=== PATIENT | female | born 1940 | race Caucasian/White ===

== ENCOUNTER 2022-05-27 21:21 | Inpatient (IN) | payer MEDICARE, BC ==
[~2022-05-27] VITALS: Ht 157.5 cm; Wt 105.2 kg
[2022-05-27 21:49] LABS: HEMOGLOBIN 14.9 g/dL (11.5-16.0)
[2022-05-27 21:51] LABS: BASOPHILS # (AUTO) 0.1 10^3/uL (0.0-0.1); BASOPHILS % (AUTO) 1 % (0-10); EOSINOPHILS # (AUTO) 0.4 10^3/uL (0.0-0.3); EOSINOPHILS % (AUTO) 3 % (0-10); HEMATOCRIT 47 % (35-52); LYMPHOCYTES # (AUTO) 0.8 10^3/uL (1.0-4.0); LYMPHOCYTES % (AUTO) 7 % (12-44); MEAN CORPUSCULAR HEMOGLOBIN 30 pg (25-34); MEAN CORPUSCULAR HGB CONC 32 g/dL (32-36); MEAN CORPUSCULAR VOLUME 93 fL (80-99); MEAN PLATELET VOLUME 9.5 fL (9.0-12.2); MONOCYTES # (AUTO) 0.8 10^3/uL (0.0-1.0); MONOCYTES % (AUTO) 7 % (0-12); NEUTROPHILS # (AUTO) 9.2 10^3/uL (1.8-7.8); NEUTROPHILS % (AUTO) 82 % (42-75); PLATELET COUNT 105 10^3/uL (130-400); WHITE BLOOD COUNT 11.2 10^3/uL (4.3-11.0)
[2022-05-27] MEDS ORDERED: WARF4TAB3 PO (21:55)
[2022-05-27] MEDS ORDERED: FERR236T3 PO (21:55)
[2022-05-27] MEDS ORDERED: MEMA5TAB PO (21:55)
[2022-05-27] MEDS ORDERED: ALLO100T PO (21:55)
[2022-05-27] MEDS ORDERED: FURO-124 PO (21:55)
[2022-05-27] MEDS ORDERED: ATOR20TA66 PO (21:55)
--- NOTE | 2022-05-27 21:59 | ED General ---
General Chief Complaint: General Problems/Pain Stated Complaint: WEAKNESS Nursing Triage Note: BROUGHT IN BY [facility] FOR INCREASED WEAKNESS TONIGHT. DC'D FROM REHAB 05/26/22. PT REPORTS BEING UNABLE TO STAND TONIGHT AFTER P/T TODAY.C/O BILATERAL FOOT SWELLING. Source of Information: Patient, EMS, Family Exam Limitations: No Limitations History of Present Illness Date Seen by Provider: May 27, 2022 Time Seen by Provider: 19:22 Initial Comments Here by EMS with report of weakness. EMS reports they were called to scene when patient was unable to transfer. They report that she has been in inpatient rehab for a month or 2 in [facility] and moved here yesterday to be closer to her son who is her DPOA. Patient reports that she was doing well yesterday after arriving here and she lives in a micro apartment. She also reports doing well earlier today but then states that she was just too weak to transfer or walk. She denies pain. EMS reports that she was unsteady on transfer when standing. Patient reports eating and drinking okay and denies dysuria, chest pain, breathing problems. Son arrives and provides medication list and history including history of atrial fibrillation, heart failure, previous stroke, kidney surgery and dementia that was diagnosed earlier this year. He states that she was doing fine yesterday and even earlier today when he checked blood but became more unsteady and weak this evening. He reports that she is of normal mentation currently. Patient is answering questions and following commands well. Timing/Duration: 4-6 Hours Severity: Mild, Moderate Associated Systoms: No Chest Pain, No Cough, No Fever/Chills, No Nausea/Vomiting, No Shortness of Air, No Syncope; Weakness Allergies and Home Medications Allergies Coded Allergies: Penicillins (Verified Allergy, Unknown, 05/27/22) Patient Home Medication List Home Medication List Reviewed: Yes Allopurinol (Allopurinol) 100 Mg Tablet, Unknown Dose PO, (Reported) Entered as Reported by: DEVI SILVA on 05/27/222154 Last Action: New Order Atorvastatin Calcium (Atorvastatin Calcium) 20 Mg Tablet, Unknown Dose PO, (Reported) Entered as Reported by: DEVI SILVA on 05/27/222154 Last Action: New Order Ferrous Gluconate (Iron) 236 Mg (27 Mg Iron) Tablet, Unknown Dose PO, (Reported) Entered as Reported by: DEVI SILVA on 05/27/222154 Last Action: New Order Furosemide (Lasix) 40 Mg Tablet, Unknown Dose PO, (Reported) Entered as Reported by: DEVI SILVA on 05/27/222154 Last Action: New Order Memantine HCl (Namenda) 5 Mg Tablet, Unknown Dose PO, (Reported) Entered as Reported by: DEVI SILVA on 05/27/222154 Last Action: New Order Warfarin Sodium (Warfarin Sodium) 4 Mg Tablet, Unknown Dose PO, (Reported) Entered as Reported by: DEVI SILVA on 05/27/222154 Last Action: New Order Review of Systems Review of Systems Constitutional: see HPI EENTM: No nose congestion, No nose pain Respiratory: No cough Cardiovascular: No chest pain; edema; No palpitations Gastrointestinal: No nausea, No vomiting Genitourinary: no symptoms reported Musculoskeletal: muscle weakness Psychiatric/Neurological: Denies Numbness; Weakness Past Yspblcp-Icrowb-Iyrren Hx Patient Social History Tobacco Use?: No Substance use?: No Alcohol Use?: No Pt feels they are or have been: No Immunizations Up To Date First/Initial COVID19 Vaccinat: NA Past Medical History Surgery/Hospitalization HX: BILATERAL FOOT/KNEE, RIGHT NEPHRECTOMY, HYSTERECTOMY, CHF, DEMENTIA, HLD, HTN, Surgeries: Yes Hysterectomy, Nephrectomy Respiratory: No Cardiac: Yes Chronic Edema/Swelling, Irregular Heartbeat Neurological: Yes Dementia Genitourinary: Yes Renal Failure Gastrointestinal: No Musculoskeletal: Yes Physical Exam Vital Signs Vital Signs - First Documented 05/27/22 21:21 Temp 36.3 Pulse 80 Resp 16 B/P (MAP) 132/92 (105) Pulse Ox 95 O2 Delivery Room Air Capillary Refill : Less Than 3 Seconds Height, Weight, BMI Height: '" Weight: lbs. oz. kg; 40.00 BMI Method: General Appearance: No Apparent Distress, WD/WN, Obese HEENT: PERRL/EOMI, Pharynx Normal Neck: Non Tender, Supple Respiratory: Lungs Clear, Normal Breath Sounds Cardiovascular: No Murmur, Irregularly Irregular Gastrointestinal: Non Tender, Soft Back: No CVA Tenderness Extremity: Pedal Edema (3-4+ edema bilateral lower extremities up to the level of knees and to a lesser extent higher) Neurologic/Psychiatric: Alert, Oriented x3 Skin: Normal Color, Warm/Dry Progress/Results/Core Measures Suspected Sepsis SIRS Temperature: Pulse: 80 Respiratory Rate: 16 Laboratory Tests 05/27/22 21:35: White Blood Count 11.2H Blood Pressure 132 /92 Mean: 105 Laboratory Tests 05/27/22 21:35: Creatinine 1.68H, INR Comment 2.3H, Platelet Count 105L, Total Bilirubin 1.6H Results/Orders Lab Results Laboratory Tests Test 05/27/22 21:35 Range/Units White Blood Count 11.2 H 4.3-11.0 10^3/uL Red Blood Count 5.03 3.80-5.11 10^6/uL Hemoglobin 14.9 11.5-16.0 g/dL Hematocrit 47 35-52 % Mean Corpuscular Volume 93 80-99 fL Mean Corpuscular Hemoglobin 30 25-34 pg Mean Corpuscular Hemoglobin Concent 32 32-36 g/dL Red Cell Distribution Width 19.8 H 10.0-14.5 % Platelet Count 105 L 130-400 10^3/uL Mean Platelet Volume 9.5 9.0-12.2 fL Immature Granulocyte % (Auto) 1 % Neutrophils (%) (Auto) 82 H 42-75 % Lymphocytes (%) (Auto) 7 L 12-44 % Monocytes (%) (Auto) 7 0-12 % Eosinophils (%) (Auto) 3 0-10 % Basophils (%) (Auto) 1 0-10 % Neutrophils # (Auto) 9.2 H 1.8-7.8 10^3/uL Lymphocytes # (Auto) 0.8 L 1.0-4.0 10^3/uL Monocytes # (Auto) 0.8 0.0-1.0 10^3/uL Eosinophils # (Auto) 0.4 H 0.0-0.3 10^3/uL Basophils # (Auto) 0.1 0.0-0.1 10^3/uL Immature Granulocyte # (Auto) 0.1 0.0-0.1 10^3/uL Neutrophils % (Manual) 87 % Lymphocytes % (Manual) 7 % Monocytes % (Manual) 2 % Eosinophils % (Manual) 4 % Platelet Estimate SLIGHTLY DECREASED Clumped Platelets NONE SEEN Percent Immature Platelet Fraction 2.6 0.0-7.6 % Poikilocytosis SLIGHT Prothrombin Time 25.9 H 12.2-14.7 SEC INR Comment 2.3 H 0.8-1.4 Sodium Level 142 135-145 MMOL/L Potassium Level 4.4 3.6-5.0 MMOL/L Chloride Level 103 98-107 MMOL/L Carbon Dioxide Level 25 21-32 MMOL/L Anion Gap 14 5-14 MMOL/L Blood Urea Nitrogen 27 H 7-18 MG/DL Creatinine 1.68 H 0.60-1.30 MG/DL Estimat Glomerular Filtration Rate 31 BUN/Creatinine Ratio 16 Glucose Level 116 H 70-105 MG/DL Calcium Level 9.8 8.5-10.1 MG/DL Corrected Calcium 10.2 H 8.5-10.1 MG/DL Magnesium Level 2.1 1.6-2.4 MG/DL Total Bilirubin 1.6 H 0.1-1.0 MG/DL Aspartate Amino Transf (AST/SGOT) 45 H 5-34 U/L Alanine Aminotransferase (ALT/SGPT) 37 0-55 U/L Alkaline Phosphatase 204 H 40-136 U/L Troponin I < 0.028 <0.028 NG/ML C-Reactive Protein High Sensitivity 0.55 H 0.00-0.50 MG/DL B-Type Natriuretic Peptide 842.0 H <100.0 PG/ML Total Protein 6.8 6.4-8.2 GM/DL Albumin 3.5 3.2-4.5 GM/DL My Orders Orders - ABBEY CHAWLA MD Bnp [place] (05/27/22 21:37) Cbc With Automated Diff (05/27/22 21:37) Hs C Reactive Protein (05/27/22 21:37) Magnesium (05/27/22 21:37) Protime With Inr (05/27/22 21:37) Troponin I Jennifer (05/27/22 21:37) Ed Iv/Invasive Line Start (05/27/22 21:37) Ekg Tracing (05/27/22 21:37) Chest 1 View, Ap/Pa Only (05/27/22 21:37) Comprehensive Metabolic Panel (05/27/22 21:37) Manual Differential (05/27/22 21:35) Furosemide Injection (Lasix Injection) (05/27/22 22:50) Vital Signs/I&O 05/27/22 21:21 Temp 36.3 Pulse 80 Resp 16 B/P (MAP) 132/92 (105) Pulse Ox 95 O2 Delivery Room Air Capillary Refill : Less Than 3 Seconds Blood Pressure Mean: 105 Progress Note : Progress Note Seen and evaluated. IV, labs, EKG and chest x-ray ordered. Labs including CBC, CMP, BNP, magnesium and troponin ordered. We will check coags as patient is on warfarin. Monitor patient. Differential diagnosis includes CHF exacerbation, electrolyte abnormality, debility secondary to chronic disease, cardiac event 03/24/2001: CBC does show slightly elevated white count at 11.2 with left shift. Remainder of labs are pending. Monitor patient. 2214: Chest x-ray does show cardiomegaly with mild vascular congestion and right pleural effusion on my interpretation. Pending labs. 2249: Chemistries do show essentially normal electrolytes with elevated serum creatinine of 1.68 and BUN of 27. CRP is not significantly elevated. BNP is elevated at 842. LFTs note elevation in total bili at 1.6 and slight elevation of AST and alk phos. Overall I believe this indicates heart failure given chest x-ray and elevated BNP and this is likely camilo s worsened as she is moved appear. Given patient's weakness, admission is indicated. I did discuss the case with Dr. Mathur, hospitalist on-call and she accepts patient for admission, inpatient status. We will consult cardiology in the morning and get 2D cardiac echo in the morning and this was ordered. Bridge orders written by me. Patient does request DNR status. Son verified. ECG Initial ECG Impression Date: May 27, 2022 Initial ECG Impression Time: 21:48 Initial ECG Rate: 76 Initial ECG Rhythm: A Fib/Flutter Comment Atrial fibrillation with normal axis. Rate controlled. No evidence of ST elevation [place]. Interpreted by me. Diagnostic Imaging Diagonstic Imaging: Xray Plain Films/CT/US/NM/MRI: chest Comments [facility]. [place], [place] NAME: RACHELE LANDAVERDE [facility] REC#: [id number] PT STATUS: REG ER : 1940 PHYSICIAN: ABBEY CHAWLA MD ADMIT DATE: 05/27/22/ER Draft Date of Exam:05/27/22 CHEST 1 VIEW, AP/PA ONLY INDICATION: Weakness. EXAMINATION: Single AP view of the chest was obtained. COMPARISON: There is no previous study for comparison. FINDINGS: Heart size is at the upper limits of normal. Pulmonary vascularity is unremarkable. There is aortic atherosclerosis. There is blunting of the right costophrenic sulcus suggestive of mild pleural fluid or pleural thickening. No other acute abnormality is seen. IMPRESSION: Borderline cardiomegaly with probable mild right pleural fluid and/or thickening. Follow-up PA and lateral views of the chest would be useful. Dictated on workstation # [id number] Dict: 05/27/222200 Trans: 05/27/222204 [facility] [id number] Interpreted by: ZACHARIAH QUINTANILLA MD Electronically signed by: Reviewed: Reviewed by Me Departure Impression Primary Impression: Acute on chronic heart failure Qualified Codes: I50.9 - Heart failure, unspecified Additional Impression: Weakness Disposition: ADMITTED INPATIENT Condition: Stable Admissions Decision to Admit Reason: Admit from ER (General) Decision to Admit/Date: May 27, 2022 Time/Decision to Admit Time: 22:50 ABBEY CHAWLA MD May 27, 2022 21:59
[2022-05-27 22:02] LABS: INR 2.3 (0.8-1.4); PROTHROMBIN TIME PATIENT 25.9 SEC (12.2-14.7)
--- NOTE | 2022-05-27 22:05 | Diagnostic Imaging Report ---
INDICATION: Weakness. EXAMINATION: Single AP view of the chest was obtained. COMPARISON: There is no previous study for comparison. FINDINGS: Heart size is at the upper limits of normal. Pulmonary vascularity is unremarkable. There is aortic atherosclerosis. There is blunting of the right costophrenic sulcus suggestive of mild pleural fluid or pleural thickening. No other acute abnormality is seen. IMPRESSION: Borderline cardiomegaly with probable mild right pleural fluid and/or thickening. Follow-up PA and lateral views of the chest would be useful. Dictated by: Dictated on workstation # [id number]
[2022-05-27 22:09] LABS: ALANINE AMINOTRANSFERASE 37 U/L (0-55); ALBUMIN 3.5 GM/DL (3.2-4.5); ALKALINE PHOSPHATASE 204 U/L (40-136); BILIRUBIN,TOTAL 1.6 MG/DL (0.1-1.0); BUN/CREATININE RATIO 16; CALCIUM 9.8 MG/DL (8.5-10.1); CARBON DIOXIDE 25 MMOL/L (21-32); CHLORIDE 103 MMOL/L (98-107); CREATININE SERUM 1.68 MG/DL (0.60-1.30); GFR ESTIMATED 31; GLUCOSE 116 MG/DL (70-105); MAGNESIUM 2.1 MG/DL (1.6-2.4); POTASSIUM 4.4 MMOL/L (3.6-5.0); SODIUM 142 MMOL/L (135-145); TOTAL PROTEIN 6.8 GM/DL (6.4-8.2)
[2022-05-27 22:16] LABS: EOSINOPHILS % (MANUAL) 4 %; LYMPHOCYTES % (MANUAL) 7 %; MONOCYTES % (MANUAL) 2 %; NEUTROPHILS % (MANUAL) 87 %; PLATELET CLUMPS NONE SEEN; PLATELET ESTIMATE SLIGHTLY DECREASED
[2022-05-27 22:17] LABS: POIKILOCYTOSIS SLIGHT
[2022-05-27] MEDS ORDERED: FUROSEMIDE 40 MG/4 ML INJ (LASIX) IV STA (22:50)
[2022-05-27 23:30] VITALS: BP 126/74
[2022-05-28 03:46] VITALS: BP 122/70
[2022-05-28 05:31] LABS: EOSINOPHILS % (AUTO) 2 % (0-10)
[2022-05-28 05:33] LABS: BASOPHILS # (AUTO) 0.1 10^3/uL (0.0-0.1); BASOPHILS % (AUTO) 1 % (0-10); EOSINOPHILS # (AUTO) 0.2 10^3/uL (0.0-0.3); HEMATOCRIT 42 % (35-52); HEMOGLOBIN 13.4 g/dL (11.5-16.0); LYMPHOCYTES # (AUTO) 0.9 10^3/uL (1.0-4.0); LYMPHOCYTES % (AUTO) 8 % (12-44); MEAN CORPUSCULAR HEMOGLOBIN 30 pg (25-34); MEAN CORPUSCULAR HGB CONC 32 g/dL (32-36); MEAN CORPUSCULAR VOLUME 92 fL (80-99); MEAN PLATELET VOLUME 9.5 fL (9.0-12.2); MONOCYTES # (AUTO) 0.9 10^3/uL (0.0-1.0); MONOCYTES % (AUTO) 8 % (0-12); NEUTROPHILS # (AUTO) 8.8 10^3/uL (1.8-7.8); NEUTROPHILS % (AUTO) 80 % (42-75); PLATELET COUNT 89 10^3/uL (130-400); WHITE BLOOD COUNT 10.9 10^3/uL (4.3-11.0)
[2022-05-28] MEDS: CATHETER FLUSH 10 ML SYR IVP SCH ×3 (05:45→21:07)
[2022-05-28 05:49] LABS: CALCIUM 9.2 MG/DL (8.5-10.1)
[2022-05-28 05:53] LABS: CREATININE SERUM 1.66 MG/DL (0.60-1.30)
[2022-05-28 07:24] VITALS: BP 100/61
[2022-05-28] MEDS: FUROSEMIDE 40 MG/4 ML INJ (LASIX) IV SCH ×2 (07:47→21:07)
--- NOTE | 2022-05-28 09:28 | Consultation-Cardiology ---
HPI-Cardiology Cardiology Consultation Date of Consultation 05/28/22 Date of Admission Time Seen by Provider: 09:24 Indication: Elevated BNP HPI 81 years old lady with generalized weakness, has been in rehab since March 2022 after sustaining a fall. She became more weak yesterday and was brought by her son to the emergency room, she was unable to support her weight, she has b een using a walker. She has chronic pedal edema and chronic atrial fibrillation, she denied any chest pain or excessive shortness of breath beyond her baseline. She was noted to have elevation in BNP. Home Medications & Allergies Allergies: Coded Allergies: Penicillins (Verified Allergy, Unknown, 05/27/22) Home Medication List Reviewed: Yes KHW-Kozijr-Cevbws Hx Patient Social History Marital Status: single Employed/Student: retired Smoking Status: Never a Smoker Have you traveled recently?: No Alcohol Use?: No Past Medical History Discussed below Family Medical History Significant Family History: No Pertinent Family Hx Review of Systems-General Review of Systems Constitutional: see HPI, malaise EENTM: see HPI; No nose congestion, No nose pain Respiratory: see HPI; No cough, No dyspnea on exertion, No hemoptysis, No orthopnea, No phlegm, No short of breath, No stridor, No wheezing, No other Cardiovascular: see HPI; No chest pain; edema; No Hx of Intervention, No palpitations, No syncope, No vascular heart diseas, No other Gastrointestinal: No nausea, No vomiting Genitourinary: no symptoms reported Musculoskeletal: muscle weakness Skin: no symptoms reported, see HPI Psychiatric/Neurological: Denies Numbness; Weakness Reviewed Test Results Reviewed Test Results Lab Laboratory Tests Test 05/27/22 21:35 05/28/22 05:17 Range/Units White Blood Count 11.2 H 10.9 4.3-11.0 10^3/uL Red Blood Count 5.03 4.50 3.80-5.11 10^6/uL Hemoglobin 14.9 13.4 11.5-16.0 g/dL Hematocrit 47 42 35-52 % Mean Corpuscular Volume 93 92 80-99 fL Mean Corpuscular Hemoglobin 30 30 25-34 pg Mean Corpuscular Hemoglobin Concent 32 32 32-36 g/dL Red Cell Distribution Width 19.8 H 19.2 H 10.0-14.5 % Platelet Count 105 L 89 L 130-400 10^3/uL Mean Platelet Volume 9.5 9.5 9.0-12.2 fL Immature Granulocyte % (Auto) 1 0 % Neutrophils (%) (Auto) 82 H 80 H 42-75 % Lymphocytes (%) (Auto) 7 L 8 L 12-44 % Monocytes (%) (Auto) 7 8 0-12 % Eosinophils (%) (Auto) 3 2 0-10 % Basophils (%) (Auto) 1 1 0-10 % Neutrophils # (Auto) 9.2 H 8.8 H 1.8-7.8 10^3/uL Lymphocytes # (Auto) 0.8 L 0.9 L 1.0-4.0 10^3/uL Monocytes # (Auto) 0.8 0.9 0.0-1.0 10^3/uL Eosinophils # (Auto) 0.4 H 0.2 0.0-0.3 10^3/uL Basophils # (Auto) 0.1 0.1 0.0-0.1 10^3/uL Immature Granulocyte # (Auto) 0.1 0.0 0.0-0.1 10^3/uL Neutrophils % (Manual) 87 % Lymphocytes % (Manual) 7 % Monocytes % (Manual) 2 % Eosinophils % (Manual) 4 % Platelet Estimate SLIGHTLY DECREASED Clumped Platelets NONE SEEN Percent Immature Platelet Fraction 2.6 2.5 0.0-7.6 % Poikilocytosis SLIGHT Prothrombin Time 25.9 H 12.2-14.7 SEC INR Comment 2.3 H 0.8-1.4 Sodium Level 142 143 135-145 MMOL/L Potassium Level 4.4 4.0 3.6-5.0 MMOL/L Chloride Level 103 103 98-107 MMOL/L Carbon Dioxide Level 25 28 21-32 MMOL/L Anion Gap 14 12 5-14 MMOL/L Blood Urea Nitrogen 27 H 27 H 7-18 MG/DL Creatinine 1.68 H 1.66 H 0.60-1.30 MG/DL Estimat Glomerular Filtration Rate 31 31 BUN/Creatinine Ratio 16 16 Glucose Level 116 H 97 70-105 MG/DL Calcium Level 9.8 9.2 8.5-10.1 MG/DL Corrected Calcium 10.2 H 8.5-10.1 MG/DL Magnesium Level 2.1 1.6-2.4 MG/DL Total Bilirubin 1.6 H 0.1-1.0 MG/DL Aspartate Amino Transf (AST/SGOT) 45 H 5-34 U/L Alanine Aminotransferase (ALT/SGPT) 37 0-55 U/L Alkaline Phosphatase 204 H 40-136 U/L Troponin I < 0.028 <0.028 NG/ML C-Reactive Protein High Sensitivity 0.55 H 0.00-0.50 MG/DL B-Type Natriuretic Peptide 842.0 H <100.0 PG/ML Total Protein 6.8 6.4-8.2 GM/DL Albumin 3.5 3.2-4.5 GM/DL Physical Exam Physical Exam Vital Signs Vital Signs - First Documented 05/27/22 21:21 Temp 36.3 Pulse 80 Resp 16 B/P (MAP) 132/92 (105) Pulse Ox 95 O2 Delivery Room Air Capillary Refill : Less Than 3 Seconds Height, Weight, BMI Height: '" Weight: lbs. oz. kg; 42.77 BMI Method: General Appearance: No Apparent Distress, WD/WN, Obese HEENT: PERRL/EOMI, Pharynx Normal Neck: Non Tender, Supple Respiratory: Lungs Clear, Normal Breath Sounds Cardiovascular: No Murmur, Irregularly Irregular Gastrointestinal: Non Tender, Soft Back: No CVA Tenderness Extremity: Pedal Edema (3-4+ edema bilateral lower extremities up to the level of knees and to a lesser extent higher) Neurologic/Psychiatric: Alert, Oriented x3 Skin: Normal Color, Warm/Dry A/P-Cardiology Admission Diagnosis Chronic atrial fibrillation Congestive heart failure, acute on chronic left ventricular diastolic d ysfunction Chronic kidney disease Peripheral edema Assessment/Plan Elevated BNP, chronic pedal edema Maintained on diuretic and using compression socks. I will evaluate 2D echo. Continue with diuretics and monitor Chronic atrial fibrillation most probably permanent atrial fibrillation Maintained on aspirin and Coumadin as an outpatient, monitor INR. Generalized weakness, worsening recently Has been in rehab, continue with physical therapy. Chronic kidney disease, chronic renal insufficiency Continue to monitor renal function History of CVA in the past. Residual weakness. Continue with physical therapy SABAS OWENS MD May 28, 2022 09:28
--- NOTE | 2022-05-28 10:02 | History & Physical-Hospitalist ---
History of Present Illness HPI/Chief Complaint Pt is an 81CF witha PMH of HTN, afib, DM, CHF who presented to the ER due to leg swelling and weakness. Patient reports that she is recently been admitted to a nursing facility for physical therapy and moved here from [facility] to be in the same town as her son. She states that she was doing very well 2 days ago and was able to walk with her walker and she moved from this facility to an apartment here in town and was unable to get up. She states she does have baseline edema in her legs but it was worse the past couple of days. She was found to have an elevated BNP and significant edema of her lower extremities. She was admitted for diuresis and cardiology evaluation. At this morning she reports feeling well except her legs still feel weak and she still has edema but she is sitting in a recliner with her feet down. Source: patient Date Seen 05/28/22 Time Seen by a Provider: 09:40 Attending Physician Mary Osullivan MD PCP Admitting Physician: Emily Mathur MD Attending Physician: Emily Mathur MD Referring Physician Date of Admission May 27, 2022 at 23:15 Home Medications & Allergies Home Medications Reviewed patient Home Medication Reconciliation performed by pharmacy medication reconciliations weatherization field technician and/or nursing. Patients Allergies have been reviewed. Allergies Allergies Coded Allergies Penicillins (Verified Allergy, Unknown, 05/27/22) Past Txsuuba-Cbcycd-Yqldos Hx Patient Social History Marrital Status: single Employed/Student: retired Tobacco Use?: No Smoking Status: Never a Smoker Use of E-Cig and/or Vaping dev: No Substance use?: No Alcohol Use?: No Pt feels they are or have been: No Immunizations Up To Date First/Initial COVID19 Vaccinat: NA Tetanus Booster (TDap): Unknown Current Status status: No status: No Advance Directives: No Communicates: Verbally Primary Language: Armenian Preferred Spoken Language: Armenian Is interpretation needed?: No Implanted or Applied Medical D: None Past Medical History Surgeries: Hysterectomy, Nephrectomy Chronic Edema/Swelling, Irregular Heartbeat Dementia Renal Failure Family Medical History No Pertinent Family Hx Review of Systems Constitutional: see HPI Physical Exam Physical Exam Vital Signs Vital Signs - First Documented 05/27/22 21:21 Temp 36.3 Pulse 80 Resp 16 B/P (MAP) 132/92 (105) Pulse Ox 95 O2 Delivery Room Air Capillary Refill : Less Than 3 Seconds Height, Weight, BMI Height: '" Weight: lbs. oz. kg; 42.77 BMI Method: General Appearance: No Apparent Distress, Chronically ill, Obese Respiratory: Lungs Clear, No Accessory Muscle Use, No Respiratory Distress Cardiovascular: Regular Rate, Rhythm, No Murmur Gastrointestinal: Normal Bowel Sounds, Non Tender, Soft Extremity: Pedal Edema, Swelling (2-3+) Neurologic/Psychiatric: Alert, Oriented x3, Normal Mood/Affect Skin: Normal Color, Warm/Dry; No Petechia Results Results/Procedures Labs Laboratory Tests 05/27/22 21:35 05/28/22 05:17 Patient resulted labs reviewed. Imaging: Reviewed Imaging Report Imaging [facility], [place] NAME: RACHELE LANDAVERDE [facility] REC#: [id number] PT STATUS: REG ER : 1940 PHYSICIAN: ABBEY CHAWLA MD ADMIT DATE: 05/27/22/ER Draft Date of Exam:05/27/22 CHEST 1 VIEW, AP/PA ONLY INDICATION: Weakness. EXAMINATION: Single AP view of the chest was obtained. COMPARISON: There is no previous study for comparison. FINDINGS: Heart size is at the upper limits of normal. Pulmonary vascularity is unremarkable. There is aortic atherosclerosis. There is blunting of the right costophrenic sulcus suggestive of mild pleural fluid or pleural thickening. No other acute abnormality is seen. IMPRESSION: Borderline cardiomegaly with probable mild right pleural fluid and/or thickening. Follow-up PA and lateral views of the chest would be useful. Dictated on workstation # [id number] Dict: 05/27/222200 Trans: 05/27/222204 [facility] [id number] Interpreted by: ZACHARIAH QUINTANILLA MD Electronically signed by: Assessment/Plan Admission Diagnosis CHF Exacerbation Admission Status: Inpatient Order (span 2 midnights) Reason for Inpatient Admission: see below Assessment and Plan CHF Exacerbation A-fib Debility Cardiology consulted, appreciate recs Continue lasix Monitor I/O Echo Add [facility] sethi PT/OT IRF eval Continue warfarin INR 2.3 NIDDMII Reports history of high blood sugars and being diabetic but no meds on med rec for that and fasting BS 97 this AM Trend BS CKD Stage 3 Creatinine 1.6- still near baseline per patient reports Thrombocytopenia Unclear why Stable from yesterday Trend SHe does have mildly elevated AST and bili so maybe liver disease (WILSON?) Diagnosis/Problems Diagnosis/Problems (1) Acute on chronic heart failure Status: Acute Qualifiers: Heart failure type: unspecified Qualified Codes: I50.9 - Heart failure, unspecified (2) Atrial fibrillation Qualifiers: Atrial fibrillation type: permanent Qualified Codes: I48.21 - Permanent atrial fibrillation (3) CKD (chronic kidney disease) Qualifiers: Chronic kidney disease stage: stage 3 (moderate) (4) Dementia Status: Chronic Qualifiers: Dementia type: unspecified type Dementia severity: mild Dementia behavioral or psychological symptom: without behavioral, psychotic, or mood disturbance or anxiety Qualified Codes: F03.A0 - Unspecified dementia, mild, without behavioral disturbance, psychotic disturbance, mood disturbance, and anxiety (5) Essential (primary) hypertension Status: Chronic (6) Hospitalization or health care facility admission within last 6 months Status: Acute (7) Non-insulin dependent type 2 diabetes mellitus Status: Chronic (8) Obesity Status: Chronic Qualifiers: Obesity type: unspecified obesity type Obesity classification: adult class 3 (BMI >= 40) Serious obesity comorbidity presence: without serious comorbidity Body mass index: BMI 40.0-44.9 Qualified Codes: E66.01 - Morbid (severe) obesity due to excess calories; Z68.41 - Body mass index [BMI] 40.0- 44.9, adult (9) Thrombocytopenia (10) Transaminitis (11) Weakness Status: Acute Copy Copies To 1: MARY OSULLIVAN MD, KATELYN M MD May 28, 2022 10:02 am
[2022-05-28 11:18] VITALS: BP 136/78
[2022-05-28 16:05] VITALS: BP 123/58
[2022-05-28 19:17] VITALS: BP 125/58
[2022-05-29] VITALS: BP 118/59
[2022-05-29] MEDS ORDERED: ACETAMINOPHEN 500 MG TAB (TYLENOL) PO PRN (03:45)
[2022-05-29 04:00] VITALS: BP 125/56
[2022-05-29 05:20] LABS: HEMATOCRIT 41 % (35-52); HEMOGLOBIN 13.4 g/dL (11.5-16.0); MEAN CORPUSCULAR HEMOGLOBIN 30 pg (25-34); MEAN CORPUSCULAR HGB CONC 33 g/dL (32-36); MEAN CORPUSCULAR VOLUME 92 fL (80-99); MEAN PLATELET VOLUME 9.8 fL (9.0-12.2); PLATELET COUNT 87 10^3/uL (130-400); WHITE BLOOD COUNT 7.1 10^3/uL (4.3-11.0)
[2022-05-29] MEDS: CATHETER FLUSH 10 ML SYR IVP SCH ×3 (05:26→19:40)
[2022-05-29 05:29] LABS: INR 2.4 (0.8-1.4); PROTHROMBIN TIME PATIENT 26.8 SEC (12.2-14.7)
[2022-05-29 05:41] LABS: CALCIUM 9.2 MG/DL (8.5-10.1); CREATININE SERUM 1.74 MG/DL (0.60-1.30); POTASSIUM 3.5 MMOL/L (3.6-5.0)
[2022-05-29 07:47] VITALS: BP 113/71
[2022-05-29] MEDS: FUROSEMIDE 40 MG/4 ML INJ (LASIX) IV SCH (08:32)
[2022-05-29] MEDS ORDERED: warFARin 4 MG (COUMADIN) TAB PO SCH (09:00)
[2022-05-29] MEDS ORDERED: FUROSEMIDE 40 MG (LASIX) TAB PO SCH (09:00)
--- NOTE | 2022-05-29 10:15 | Cardiology Progress Note ---
Subjective Date Seen by Provider: May 29, 2022 Time Seen by Provider: 10:12 Subjective/Events-last exam Patient was seen at bedside, sitting comfortably Feeling better Review of Systems General: No Chills, No Night Sweats; Fatigue; No Malaise, No Appetite, No Other HEENT: No Head Aches, No Visual Changes, No Eye Pain, No Ear Pain, No Dysphasia, No Sinus Congestion, No Post Nasal Drip, No Sore Throat, No Other Pulmonary: No Dyspnea, No Cough, No Pleuritic Chest Pain, No Other Cardiovascular: Edema; No: Chest Pain, Palpitations, Orthopnea, Paroxysmal Noc. Dyspnea, Lt Headedness, Other Objective-Cardiology Exam Last Set of Vital Signs Vital Signs 05/29/22 05/29/22 07:47 08:00 Temp 36.4 Pulse 73 Resp 18 B/P (MAP) 113/71 (85) Pulse Ox 95 O2 Delivery Room Air I&O Intake and Output 05/29/22 00:00 Intake Total 1472 ml Output Total 2400 ml Balance -928 ml Intake Oral 1472 ml Output Urine Total 2400 ml # Voids 1 # Bowel Movements 1 General: Alert, Oriented X3, Cooperative HEENT: Atraumatic, PERRLA Neck: Supple, No JVD, No Thyromegaly Lungs: Normal Air Movement, Other (Bilateral rhonchi) Heart: Regular Rate, Normal S1, Normal S2, Other (Systolic murmur at the left sternal border) Abdomen: Normal Bowel Sounds, Soft, No Tenderness, No Hepatosplenomegaly, No Masses Extremities: No Clubbing, No Cyanosis, Normal Pulses, No Tenderness/Swelling, Other (Pedal edema) Skin: No Rashes, No Breakdown, No Significant Lesion Neuro: Normal Speech, Normal Tone, Sensation Intact Psych/Mental Status: Mental Status NL, Mood NL Results Lab Laboratory Tests 05/29/22 05:06 A/P-Cardiology Admission Diagnosis Chronic atrial fibrillation Congestive heart failure, acute on chronic left ventricular diastolic dysfunction Chronic kidney disease Peripheral edema Assessment/Plan Congestive heart failure, acute on chronic left ventricular diastolic dysfunction 2D echo was done on May 28, 2022 with normal LV size, ejection fraction 60 to 65%, grade 2 diastolic dysfunction, biatrial enlargement and prominent right heart chambers, moderate aortic valve stenosis, PA pressure 30 to 35 mmHg Maintained on diuretic and using compression socks. Continue with diuretics. Chronic atrial fibrillation most probably permanent atrial fibrillation Maintained on aspirin and Coumadin as an outpatient, monitor INR. Moderate aortic valve stenosis, continue to monitor No change at this time, monitor blood pressure Generalized weakness, worsening recently Has been in rehab, continue with physical therapy. Chronic kidney disease, chronic renal insufficiency Continue to monitor renal function History of CVA in the past. Residual weakness. Continue with physical therapy SABAS OWENS MD May 29, 2022 10:15
[2022-05-29 11:37] VITALS: BP 116/70
--- NOTE | 2022-05-29 12:26 | Progress Note - Hospitalist ---
Subjective HPI/CC On Admission Date Seen by Provider: May 29, 2022 Pt is an 81CF witha PMH of HTN, afib, DM, CHF who presented to the ER due to leg swelling and weakness. Patient reports that she is recently been admitted to a nursing facility for physical therapy and moved here from [facility] to be in the same town as her son. She states that she was doing very well 2 days ago and was able to walk with her walker and she moved from this facility to an apartment here in town and was unable to get up. She states she does have baseline edema in her legs but it was worse the past couple of days. She was found to have an elevated BNP and significant edema of her lower extremities. She was admitted for diuresis and cardiology evaluation. At this morning she reports feeling well except her legs still feel weak and she still has edema but she is sitting in a recliner with her feet down. Subjective/Events-last exam Reports feeling better today. Still not back to normal strength but improving. Edema improving. Discussed plan for DC with HH vs possible IRF admission if warranted. Objective Exam Vital Signs Vital Signs Date Time Temp Pulse Resp B/P (MAP) Pulse Ox O2 Delivery O2 Flow Rate FiO2 05/29/22 11:37 36.2 71 18 116/70 (85) 97 Room Air Capillary Refill : Less Than 3 Seconds General Appearance: No Apparent Distress, Chronically ill, Obese Respiratory: Lungs Clear, No Respiratory Distress Cardiovascular: Regular Rate, Rhythm Extremity: Swelling (bilateral lower extremity edema 2+) Neurologic/Psychiatric: Alert, Oriented x3 Results/Procedures Lab Laboratory Tests 05/29/22 05:06 Patient resulted labs reviewed. Imaging: Reviewed Imaging Report Assessment/Plan Assessment and Plan Assess & Plan/Chief Complaint CHF Exacerbation A-fib Debility Cardiology consulted, appreciate recs Continue lasix, replace potassium Monitor I/O- negative about 1 liter yesterday Echo shows preserved EF with grade 2 dHF Continue [facility] sethi PT/OT IRF eval Continue warfarin INR 2.4 UA pending still NIDDMII Reports history of high blood sugars and being diabetic but no meds on med rec for that and fasting BS 97 this AM Trend BS CKD Stage 3 Creatinine 1.7- near baseline per patient reports Trend with lasix Thrombocytopenia- stable Unclear why Trend She does have mildly elevated AST and bili so maybe liver disease (WILSON?) Awaiting labs from OSH Diagnosis/Problems Diagnosis/Problems (1) Acute on chronic heart failure Status: Acute Qualifiers: Heart failure type: unspecified Qualified Codes: I50.9 - Heart failure, unspecified (2) Atrial fibrillation Qualifiers: Atrial fibrillation type: permanent Qualified Codes: I48.21 - Permanent atrial fibrillation (3) CKD (chronic kidney disease) Qualifiers: Chronic kidney disease stage: stage 3 (moderate) (4) Dementia Status: Chronic Qualifiers: Dementia type: unspecified type Dementia severity: mild Dementia behavioral or psychological symptom: without behavioral, psychotic, or mood disturbance or anxiety Qualified Codes: F03.A0 - Unspecified dementia, mild, without behavioral disturbance, psychotic disturbance, mood disturbance, and anxiety (5) Essential (primary) hypertension Status: Chronic (6) Hospitalization or health care facility admission within last 6 months Status: Acute (7) Non-insulin dependent type 2 diabetes mellitus Status: Chronic (8) Obesity Status: Chronic Qualifiers: Obesity type: unspecified obesity type Obesity classification: adult class 3 (BMI >= 40) Serious obesity comorbidity presence: without serious comorbidity Body mass index: BMI 40.0-44.9 Qualified Codes: E66.01 - Morbid (severe) obesity due to excess calories; Z68.41 - Body mass index [BMI] 40.0- 44.9, adult (9) Thrombocytopenia (10) Transaminitis (11) Weakness Status: Acute TALAT SLAUGHTER MD May 29, 2022 12:26 pm
[2022-05-29] MEDS ORDERED: MILK OF MAGNESIA 400 MG/5 ML 30 ML UDC PO PRN (12:30)
[2022-05-29] MEDS ORDERED: MELATONIN 3 MG TABLET PO PRN (12:30)
[2022-05-29] MEDS ORDERED: ANTACID SUSP 30 ML UDC (MYLANTA) PO PRN (12:30)
[2022-05-29] MEDS ORDERED: BENZONATATE 100 MG (TESSALON) CAPSULE PO PRN (12:30)
[2022-05-29] MEDS ORDERED: NS IV 500 ML 500 ML IV PRN (12:30)
[2022-05-29] MEDS ORDERED: ONDANSETRON 4 MG/2 ML (SDV) Z0FRAN IV PRN (12:30)
[2022-05-29 12:57] LABS: BILIRUBIN,URINE NEGATIVE (NEGATIVE); CLARITY,URINE CLEAR; COLOR,URINE YELLOW; GLUCOSE, URINE (UA) NEGATIVE (NEGATIVE); KETONES,URINE NEGATIVE (NEGATIVE); LEUKOCYTE ESTERASE ,URINE NEGATIVE (NEGATIVE); NITRITE,URINE NEGATIVE (NEGATIVE); PH,URINE 6.5 (5-9); PROTEIN,URINE NEGATIVE (NEGATIVE)
[2022-05-29 13:25] LABS: BACTERIA,URINE NEGATIVE /HPF; SQUAMOUS EPITHELIAL CELL,UR RARE /HPF
[2022-05-29] MEDS ORDERED: KCL 20 MEQ TAB (K-DUR) PO NR (14:00)
[2022-05-29 16:00] VITALS: BP 120/78
[2022-05-29] MEDS: warFARin 4 MG (COUMADIN) TAB PO SCH (17:55)
[2022-05-29 19:39] VITALS: BP 131/59
[2022-05-30] VITALS (7 sets, daily range): BP systolic 86–137; BP diastolic 56–63
[2022-05-30 05:49] LABS: HEMOGLOBIN 12.4 g/dL (11.5-16.0)
[2022-05-30 05:51] LABS: MEAN PLATELET VOLUME 9.3 fL (9.0-12.2)
[2022-05-30 06:04] LABS: POTASSIUM 3.7 MMOL/L (3.6-5.0)
[2022-05-30 06:06] LABS: CALCIUM 8.5 MG/DL (8.5-10.1)
[2022-05-30 06:10] LABS: CREATININE SERUM 1.82 MG/DL (0.60-1.30); PHOSPHORUS 3.6 MG/DL (2.3-4.7)
[2022-05-30 06:12] LABS: MAGNESIUM 1.8 MG/DL (1.6-2.4)
[2022-05-30] MEDS: POTASSIUM CL 10MEQ/50ML IVPB 50 ML IV SCH (06:26)
[2022-05-30] MEDS: MAGNESIUM 1 GM/100 ML IVPB 100 ML IV SCH ×2 (06:26→06:46)
[2022-05-30] MEDS: KCL 20 MEQ TAB (K-DUR) PO SCH (06:27)
[2022-05-30] MEDS: POTASSIUM BICARB 20 MEQ (EFFER-K) TABLET PO SCH (06:27)
[2022-05-30 06:35] LABS: INR 2.3 (0.8-1.4); PROTHROMBIN TIME PATIENT 25.5 SEC (12.2-14.7)
[2022-05-30] MEDS: FUROSEMIDE 40 MG/4 ML INJ (LASIX) IV SCH (06:47)
[2022-05-30] MEDS: CATHETER FLUSH 10 ML SYR IVP SCH ×3 (06:47→19:49)
[2022-05-30] MEDS ORDERED: KCL 20 MEQ TAB (K-DUR) PO ONE (09:00)
--- NOTE | 2022-05-30 09:15 | Cardiology Progress Note ---
Subjective Date Seen by Provider: May 30, 2022 Time Seen by Provider: 08:10 Subjective/Events-last exam Patient sitting up in chair, legs elevated. Denies any chest pain or dyspnea. Still having peripheral edema. Objective-Cardiology Exam Last Set of Vital Signs Vital Signs 05/30/22 11:18 Temp 36.1 Pulse 81 Resp 18 B/P (MAP) 127/60 (82) Pulse Ox 96 O2 Delivery Room Air I&O Intake and Output 05/30/22 00:00 Intake Total 1840 ml Output Total 1700 ml Balance 140 ml Intake Oral 1840 ml Output Urine Total 1200 ml Urine/Stool Mix 500 ml # Voids 2 # Bowel Movements 1 General: Alert, Oriented X3, Cooperative HEENT: Atraumatic, PERRLA Neck: Supple, No JVD, No Thyromegaly Lungs: Normal Air Movement, Other (Bilateral rhonchi) Heart: Regular Rate, Normal S1, Normal S2, Other (Systolic murmur at the left sternal border) Abdomen: Normal Bowel Sounds, Soft, No Tenderness, No Hepatosplenomegaly, No Masses Extremities: No Clubbing, No Cyanosis, Normal Pulses, No Tenderness/Swelling, Other (Pedal edema) Skin: No Rashes, No Breakdown, No Significant Lesion Neuro: Normal Speech, Normal Tone, Sensation Intact Psych/Mental Status: Mental Status NL, Mood NL Results Lab Laboratory Tests 05/30/22 05:40 A/P-Cardiology Admission Diagnosis Chronic atrial fibrillation Congestive heart failure, acute on chronic left ventricular diastolic dysfunction Chronic kidney disease Peripheral edema Assessment/Plan Congestive heart failure, acute on chronic left ventricular diastolic dysfunction 2D echo was done on May 28, 2022 with normal LV size, ejection fraction 60 to 65%, grade 2 diastolic dysfunction, biatrial enlargement and prominent right heart chambers, moderate aortic valve stenosis, PA pressure 30 to 35 mmHg Maintained on diuretic and using compression socks. Continue with diuretics. Chronic atrial fibrillation most probably permanent atrial fibrillation Maintained on aspirin and Coumadin as an outpatient, monitor INR. Moderate aortic valve stenosis, continue to monitor No change at this time, monitor blood pressure Generalized weakness, worsening recently Has been in rehab, continue with physical therapy. Chronic kidney disease, chronic renal insufficiency Continue to monitor renal function History of CVA in the past. Residual weakness. Continue with physical therapy Supervisory-Addendum Brief Supervisory Addendum Participated in pt care: history, MDM, physical Personally performed: exam, history, MDM Care discussed with: SADAF Results interpretation: Verified all documentation Notes: Patient was seen and evaluated with Aly, examination performed, management plan was discussed, agree with the current scribed note, I made few changes to the note using Italic font Patient was seen at bedside, she was sitting in a recliner, feeling better, breathing better Still having significant edema, responding well to diuretics Slightly worsening renal function, continue to monitor closely. No other changes are recommended ALY JOYCE May 30, 2022 09:15 SABAS OWENS MD May 30, 2022 11:39
--- NOTE | 2022-05-30 09:59 | Occupational Therapy Eval ---
OT Evaluation-General/PLF Medical Diagnosis Admission Date May 27, 2022 at 23:15 Medical Diagnosis: CHF Onset Date: May 27, 2022 Therapy Diagnosis Therapy Diagnosis: weakness Precautions Precautions/Isolations: Standard Precautions Weight Bear Status Weight Bearing Restriction: Full Weight Bearing Referral Referral Reason: Evaluation/Treatment Medical History Pertinent Medical History: Atrial Fib, HTN Current History Pt is an 81CF witha PMH of HTN, afib, DM, CHF who presented to the ER due to leg swelling and weakness. Patient reports that she is recently been admitted to a nursing facility for physical therapy and moved here from [facility] to be in the same town as her son. She states that she was doing very well 2 days ago and was able to walk with her walker and she moved from this facility to an apartment here in [facility] and was unable to get up. She states she does have baseline edema in her legs but it was worse the past couple of days. She was found to have an elevated BNP and significant edema of her lower extremities. She was admitted for diuresis and cardiology evaluation Social History Home: Apartment Current Living Status: Alone Entry Into Home: Level Entry ADL-Prior Level of Function SCALE: Activities may be completed with or without assistive devices. 2-Bsjwvsbshv-omvkmat completes the activity by him/herself with no assistance from a helper. 5-Set-up or Clean-up Assistance-helper sets up or cleans up; patient completes activity. [place] assists only prior to or following the activity. 4-Supervision or Touching Assistance-helper provides verbal cues and/or touching/steadying and/or contact guard assistance as patient completes activity. Assistance may be provided throughout the activity or intermittently. 3-Partial/Moderate Assistance-helper does LESS THAN HALF the effort. [place] lifts, holds or supports trunk or limbs, but provides less than half the effort. 2-Substantial/Maximal Assistance-helper does MORE THAN HALF the effort. [place] lifts or holds trunk or limbs and provides more than half the effort. 5-Uiigqjpev-bdmffz does ALL the effort. Patient does none of the effort to complete the activity. Or, the assistance of 2 or more helpers is required for the patient to complete the activity. If activity was not attempted, code reason: 7-Patient Refused. 9-Not Applicable-not attempted and the patient did not perform the activity before the current illness, exacerbation or injury. 10-Not Attempted due to Environmental Limitations-(lack of equipment, weather restraints, etc.). 88-Not Attempted due to Medical Conditions or Safety Concerns. Self Care: Independent Functional Cognition: Independent DME/Equipment Comments Fell asleep in recliner, was not able to get out of recliner Drive Self: No OT Current Status Subjective Up in chair agreeable to OT Mental Status/Objective Patient Orientation: Person, Place, Time, Situation Current Glasses/Contacts: Yes Upper Extremity ROM BUE ROM WFLS Upper Extremity Coordination INTACT Upper Extremity Sensation INTACT Upper Extremity Strength -4/5 GROSSLY ADL-Treatment Eating (QC): 6 Oral Hygiene (QC): 5 Shower/Bathe Self (QC): 7 Upper Body Dressing (QC): 4 Lower Body Dressing (QC): 4 On/Off Footwear (QC): 5 Toileting Hygiene (QC): 4 Education OT Patient Education: Correct positioning, Energy conservation, Exercise program, Modified ADL techniques, Progress toward Goal/Update tx plan, Purpose of tx/functional activities, Reviewed precautions, Rehab process, Safety issues, Transfer techniques, Use of adapted equipment Teaching Recipient: Patient Teaching Methods: Demonstration Response to Teaching: Verbalize Understanding, Reinforcement Needed OT Travel Registered Nurse Icu Goals Travel Registered Nurse Icu Goals Eating (QC): 6 Oral Hygiene (QC): 6 Toileting Hygiene (QC): 6 Shower/Bathe Self (QC): 6 Upper Body Dressing (QC): 6 Lower Body Dressing (QC): 6 On/Off Footwear (QC): 6 1=Demonstrate adherence to instructed precautions during ADL tasks. 2=Patient will verbalize/demonstrate understanding of assistive devices/modifications for ADL. 3=Patient will improve strength/tolerance for activity to enable patient to perform ADL's. OT Education/Plan Problem List/Assessment Assessment: Decreased Activ Tolerance, Decreased UE Strength, Impaired Funct Balance, Impaired I ADL's, Impaired Self-Care Skills Discharge Recommendations Plan/Recommendations: Continue POC Treatment Plan/Plan of Care Treatment,Training & Education: Yes Patient would benefit from OT for education, treatment and training to promote independence in ADL's, mobility, safety and/or upper extremity function for ADL's. Plan of Care: ADL Retraining, Functional Mobility, Group Exercise/Act as Ind, UE Funct Exercise/Act Treatment Duration: Jun 04, 2022 Frequency: 3 times per week (3-5 TIMES PER WEEK) Estimated Hrs Per Day: .25 hour per day Rehab Potential: Guarded Time Start Time: 09:58 Stop Time: 10:10 DATE: May 30, 2022 Total Time Billed (hr/min): 12 Billed Treatment Time EVM 12 MIN EDGARD DOE OT May 30, 2022 09:59
--- NOTE | 2022-05-30 11:43 | Physical Therapy Evaluation ---
PT Evaluation-General Medical Diagnosis Admission Date May 27, 2022 at 23:15 Medical Diagnosis: CHF Onset Date: May 27, 2022 Therapy Diagnosis Therapy Diagnosis: generalized weakness/debility Precautions Precautions/Isolations: Standard Precautions Referral Physician: Kareen Reason for Referral: Evaluation/Treatment Medical History Pertinent Medical History: Atrial Fib, Dementia, HTN, Renal Insufficiency Current History EMS secondary to weakness and bilateral LE edema (dc from [facility] 05/26/22) Reviewed History: Yes Social History Home: Apartment Current Living Status: Alone Entry Into Home: Level Entry Prior Prior Level of Function SCALE: Activities may be completed with or without assistive devices. 0-Ksqubzfipy-axeaufa completes the activity by him/herself with no assistance from a helper. 5-Set-up or Clean-up Assistance-helper sets up or cleans up; patient completes activity. [place] assists only prior to or following the activity. 4-Supervision or Touching Assistance-helper provides verbal cues and/or touching/steadying and/or contact guard assistance as patient completes activity. Assistance may be provided throughout the activity or intermittently. 3-Partial/Moderate Assistance-helper does LESS THAN HALF the effort. [place] lifts, holds or supports trunk or limbs, but provides less than half the effort. 2-Substantial/Maximal Assistance-helper does MORE THAN HALF the effort. [place] lifts or holds trunk or limbs and provides more than half the effort. 0-Pqurteleq-wkzbuq does ALL the effort. Patient does none of the effort to complete the activity. Or, the assistance of 2 or more helpers is required for the patient to complete the activity. If activity was not attempted, code reason: 7-Patient Refused. 9-Not Applicable-not attempted and the patient did not perform the activity before the current illness, exacerbation or injury. 10-Not Attempted due to Environmental Limitations-(lack of equipment, weather restraints, etc.). 88-Not Attempted due to Medical Conditions or Safety Concerns. Bed Mobility: 9 (sleeps in a recliner) Transfers (B,C,W/C): 6 Gait: 6 Stairs: 9 Indoor Mobility (Ambulation): Independent Stairs: Not Applical[place] Prior Devices Use: Walker PT Evaluation-Current Subjective Patient agrees to PT. She report she just moved here from [place], [place] to live closer to her son. Live in a "micro apartment" Objective Patient Orientation: Person, Time, Situation ROM/Strength ROM Lower Extremities bilateral LE WFL Strength Lower Extremities 3+/5 grossly bilateral LE all planes Integumentary/Posture Integumentary refer to nursing notes Bowel Incontinence: No Bladder Incontinence: No Posture WFL Neuromuscular (Tone, Coordination, Reflexes) diminished coordination due to inactivity/weakness Sensory Vision: Wears Glasses Hearing: Functional Transfers Sit to Stand (QC): 4 Gait Mode of Locomotion: Walk Anticipated Mode of Locomotion: Walk Walk 10 feet (QC): 4 Walk 50 ft with 2 Turns(QC): 4 Walk 150 ft (QC): 4 Distance: 225' Gait Assistive Device: FWW Comments/Gait Description CGA due to slightly unsteady with FWW use Balance Sitting Static: Normal Sitting Dynamic: Normal Standing Static: Fair Standing Dynamic: Fair Assessment/Needs Patient fatigues quickly with minimal activity and will benefit from skilled PT to address functional strength and mobility to improve current LOF to safely return to maximum LOF. Rehab Potential: Fair PT Fdc Goals [employer] Report Developer Goals PT Fdc Goals Time Frame: Jun 18, 2022 Roll Left & Right (QC): 6 Sit to Lying (QC): 6 Lying-Sitting on Side/Bed(QC): 6 Sit to Stand (QC): 6 Chair/Gqd-pl-Pslfo Xfer(QC): 6 Toilet Transfer (QC): 6 Walk 10 feet (QC): 6 Walk 50ft with 2 Turns (QC): 6 Walk 150 ft (QC): 6 PT Plan Problem List Problem List: Activity Tolerance, Functional Strength, Safety, Balance, Gait, Transfer, Bed Mobility Treatment/Plan Treatment Plan: Continue Plan of Care Treatment Plan: Bed Mobility, Education, Functional Activity Magdiel, Functional Strength, Gait, Safety, Therapeutic Exercise, Transfers Treatment Duration: Jun 18, 2022 Frequency: 6 times per week Estimated Hrs Per Day: .25 hour per day Patient and/or Family Agrees t: Yes Time Time In: 955 Time Out: 1005 DATE: May 30, 2022 Total Billed Treatment Time: 10 Total Billed Treatment 1 visit EVModC 10 min HANS BEARD PT May 30, 2022 11:43
[2022-05-30] MEDS ORDERED: MEMA10TA57 PO (14:56)
[2022-05-30] MEDS ORDERED: ATOR40TA70 PO (14:56)
[2022-05-30] MEDS ORDERED: FERR325T18 PO (14:57)
[2022-05-30] MEDS ORDERED: METO100T12 PO (14:58)
[2022-05-30] MEDS ORDERED: FURO20TA4 PO (14:58)
[2022-05-30] MEDS ORDERED: WARF-48 PO (14:59)
[2022-05-30] MEDS ORDERED: POTA-177 PO (15:00)
[2022-05-30] MEDS ORDERED: MAGN250T13 PO (15:01)
[2022-05-30] MEDS ORDERED: LISI10TA25 PO (15:02)
[2022-05-30] MEDS ORDERED: WARF3TAB56 PO (15:26)
--- NOTE | 2022-05-30 17:23 | Progress Note - Hospitalist ---
Subjective HPI/CC On Admission Date Seen by Provider: May 30, 2022 Time Seen by Provider: 12:25 Pt is an 81CF witha PMH of HTN, afib, DM, CHF who presented to the ER due to leg swelling and weakness. Patient reports that she is recently been admitted to a nursing facility for physical therapy and moved here from [facility] to be in the same town as her son. She states that she was doing very well 2 days ago and was able to walk with her walker and she moved from this facility to an apartment here in town and was unable to get up. She states she does have baseline edema in her legs but it was worse the past couple of days. She was found to have an elevated BNP and significant edema of her lower extremities. She was admitted for diuresis and cardiology evaluation. At this morning she reports feeling well except her legs still feel weak and she still has edema but she is sitting in a recliner with her feet down. Subjective/Events-last exam She is feeling well. She denies shortness of breath. She has no complaints. Objective Exam Vital Signs Vital Signs Date Time Temp Pulse Resp B/P (MAP) Pulse Ox O2 Delivery O2 Flow Rate FiO2 05/30/22 15:30 36.4 72 18 131/61 (84) 97 Room Air Capillary Refill : Less Than 3 Seconds General Appearance: No Apparent Distress, Obese Respiratory: Lungs Clear, No Respiratory Distress Cardiovascular: Regular Rate, Rhythm, Systolic Murmur Gastrointestinal: Normal Bowel Sounds, Soft Extremity: Normal Inspection, Pedal Edema Neurologic/Psychiatric: Alert, Normal Mood/Affect Skin: Normal Color, Warm/Dry Results/Procedures Lab Laboratory Tests 05/30/22 05:40 Patient resulted labs reviewed. Imaging: Reviewed Imaging Report Assessment/Plan Assessment and Plan Assess & Plan/Chief Complaint Acute on chronic HFpEF A-fib Debility Cardiology following Continue Lasix Fluid restriction Compression stockings PT/OT IRF denied INR 2.3 Continue warfarin Home with home health tomorrow CKD 4 Creatinine relatively stable, monitor Thrombocytopenia Unclear cause Monitor Check iron studies Diagnosis/Problems Diagnosis/Problems (1) Acute on chronic heart failure Status: Acute Qualifiers: Heart failure type: diastolic Qualified Codes: I50.33 - Acute on chronic diastolic (congestive) heart failure (2) Atrial fibrillation Status: Chronic Qualifiers: Atrial fibrillation type: permanent Qualified Codes: I48.21 - Permanent atrial fibrillation (3) Thrombocytopenia Status: Acute (4) CKD (chronic kidney disease) stage 4, GFR 15-29 ml/min Status: Chronic (5) Obesity Status: Chronic Qualifiers: Obesity type: unspecified obesity type Obesity classification: adult class 3 (BMI >= 40) Serious obesity comorbidity presence: without serious comorbidity Body mass index: BMI 40.0-44.9 Qualified Codes: E66.01 - Morbid (severe) obesity due to excess calories; Z68.41 - Body mass index [BMI] 40.0- 44.9, adult VANDANA STOVALL MD May 30, 2022 17:23
[2022-05-30] MEDS: warFARin 4 MG (COUMADIN) TAB PO SCH (17:41)
[2022-05-31 00:26] VITALS: BP 123/58
[2022-05-31 03:55] VITALS: BP 118/66
[2022-05-31 05:58] LABS: HEMOGLOBIN 12.3 g/dL (11.5-16.0)
[2022-05-31 06:00] LABS: MEAN PLATELET VOLUME 10.1 fL (9.0-12.2); WHITE BLOOD COUNT 7.1 10^3/uL (4.3-11.0)
[2022-05-31 06:05] LABS: INR 2.1 (0.8-1.4)
[2022-05-31 06:18] LABS: CALCIUM 8.8 MG/DL (8.5-10.1); CREATININE SERUM 1.76 MG/DL (0.60-1.30); PHOSPHORUS 3.3 MG/DL (2.3-4.7); POTASSIUM 3.8 MMOL/L (3.6-5.0)
[2022-05-31] MEDS: POTASSIUM BICARB 20 MEQ (EFFER-K) TABLET PO SCH (06:29)
[2022-05-31] MEDS: POTASSIUM CL 10MEQ/50ML IVPB 50 ML IV SCH (06:29)
[2022-05-31] MEDS: MAGNESIUM 1 GM/100 ML IVPB 100 ML IV SCH (06:29)
[2022-05-31] MEDS: KCL 20 MEQ TAB (K-DUR) PO SCH (06:30)
[2022-05-31] MEDS: FUROSEMIDE 40 MG/4 ML INJ (LASIX) IV SCH (06:51)
[2022-05-31] MEDS: CATHETER FLUSH 10 ML SYR IVP SCH (06:51)
[2022-05-31 07:28] VITALS: BP 126/71
[2022-05-31] MEDS ORDERED: KCL 20 MEQ TAB (K-DUR) PO ONE (08:00)
--- NOTE | 2022-05-31 08:30 | Cardiology Progress Note ---
Subjective Date Seen by Provider: May 31, 2022 Time Seen by Provider: 08:28 Subjective/Events-last exam Patient sitting up at bedside, no new complaints. Objective-Cardiology Exam Last Set of Vital Signs Vital Signs 05/31/22 07:28 Temp 36.0 Pulse 91 Resp 18 B/P (MAP) 126/71 (89) Pulse Ox 94 O2 Delivery Room Air I&O Intake and Output 05/30/22 23:59 Intake Total 1480 ml Balance 1480 ml Intake Oral 1280 ml IV Total 200 ml # Voids 5 # Bowel Movements 2 General: Alert, Oriented X3, Cooperative HEENT: Atraumatic, PERRLA Neck: Supple, No JVD, No Thyromegaly Lungs: Normal Air Movement, Other (Bilateral rhonchi) Heart: Regular Rate, Normal S1, Normal S2, Other (Systolic murmur at the left sternal border) Abdomen: Normal Bowel Sounds, Soft, No Tenderness, No Hepatosplenomegaly, No Masses Extremities: No Clubbing, No Cyanosis, Normal Pulses, No Tenderness/Swelling, Other (Pedal edema) Skin: No Rashes, No Breakdown, No Significant Lesion Neuro: Normal Speech, Normal Tone, Sensation Intact Psych/Mental Status: Mental Status NL, Mood NL Results Lab Laboratory Tests 05/31/22 05:27 A/P-Cardiology Admission Diagnosis Chronic atrial fibrillation Congestive heart failure, acute on chronic left ventricular diastolic dysfunction Chronic kidney disease Peripheral edema Assessment/Plan Congestive heart failure, acute on chronic left ventricular diastolic d ysfunction 2D echo was done on May 28, 2022 with normal LV size, ejection fraction 60 to 65%, grade 2 diastolic dysfunction, biatrial enlargement and prominent right heart chambers, moderate aortic valve stenosis, PA pressure 30 to 35 mmHg Maintained on diuretic and using compression socks. Continue with diuretics. Chronic atrial fibrillation most probably permanent atrial fibrillation. Mildly tachycardic today Maintained on aspirin and Coumadin as an outpatient, monitor INR. Moderate aortic valve stenosis, continue to monitor No change at this time, monitor blood pressure Generalized weakness, worsening recently Has been in rehab, continue with physical therapy. Chronic kidney disease, chronic renal insufficiency Continue to monitor renal function History of CVA in the past. Residual weakness. Continue with physical therapy Patient was seen and evaluated with Evelyn, examination performed, management plan was discussed, agree with the current scribed note, I made few changes to the note using Italic font Patient was seen at bedside, sitting comfortably, still having pedal edema Maintained on diuretics and responding well Borderline tachycardic, adding beta-rajwinder and monitor tolerance and response Borderline hypotensive. Continue to monitor blood pressure closely Patient has moderate aortic valve stenosis, continue to monitor. Supervisory-Addendum Brief Supervisory Addendum Participated in pt care: history, MDM, physical Personally performed: exam, history, MDM Care discussed with: PA Results interpretation: Verified all documentation EVELYN JOYCE May 31, 2022 08:30 SABAS OWENS MD May 31, 2022 08:47
[2022-05-31] MEDS ORDERED: meTOprolol TARTRATE 25 MG (LOPRESSOR) TABLET PO SCH (09:00)
[2022-05-31 11:05] VITALS: BP 129/61
--- NOTE | 2022-05-31 11:13 | Occupational Ther Daily Note ---
OT Current Status-Daily Note Subjective Up in recliner, reports discomfort sitting in chair. Mental Status/Objective Patient Orientation: Situation (Patient repeats events leading up to hosptial admission, reports she does not have a bed in her new micro apartment) ADL-Treatment Currently patient at supervision level for ADLS, slow problem solving and processing Therapy Code Descriptions/Definitions Functional Leland Measure: 0=Not Assessed/NA 4=Minimal Assistance 1=Total Assistance 5=Supervision or Setup 2=Maximal Assistance 6=Modified Leland 3=Moderate Assistance 7=Complete IndependenceSCALE: Activities may be completed with or without assistive devices. 4-Eecjrmchiz-fqfbtil completes the activity by him/herself with no assistance from a helper. 5-Set-up or Clean-up Assistance-helper sets up or cleans up; patient completes activity. [place] assists only prior to or following the activity. 4-Supervision or Touching Assistance-helper provides verbal cues and/or touching/steadying and/or contact guard assistance as patient completes activity. Assistance may be provided throughout the activity or intermittently. 3-Partial/Moderate Assistance-helper does LESS THAN HALF the effort. [place] lifts, holds or supports trunk or limbs, but provides less than half the effort. 2-Substantial/Maximal Assistance-helper does MORE THAN HALF the effort. [place] lifts or holds trunk or limbs and provides more than half the effort. 2-Odihzfywx-lbxjze does ALL the effort. Patient does none of the effort to complete the activity. Or, the assistance of 2 or more helpers is required for the patient to complete the activity. If activity was not attempted, code reason: 7-Patient Refused. 9-Not Applicable-not attempted and the patient did not perform the activity before the current illness, exacerbation or injury. 10-Not Attempted due to Environmental Limitations-(lack of equipment, weather restraints, etc.). 88-Not Attempted due to Medical Conditions or Safety Concerns. Eating (QC): 6 Oral Hygiene (QC): 5 Shower/Bathe Self (QC): 5 (bath clothe) Upper Body Dressing (QC): 5 (two gowns) Lower Body Dressing (QC): 5 (Patient initially said she can't pull up brief, then retracted comment when asked how is she going mallory do task at home.) On/Off Footwear: 5 (Patient initially said she can't put on her socks, then retracted comment) Toileting Hygiene (QC): 5 Toilet Transfer (QC): 5 Education OT Patient Education: Modified ADL techniques, Progress toward Goal/Update tx plan, Purpose of tx/functional activities, Rehab process, Safety issues, Transfer techniques Teaching Recipient: Patient Response to Teaching: Reinforcement Needed OT Java Jsf Developer Goals Java Jsf Developer Goals Eating (QC): 6 Oral Hygiene (QC): 6 Toileting Hygiene (QC): 6 Shower/Bathe Self (QC): 6 Upper Body Dressing (QC): 6 Lower Body Dressing (QC): 6 On/Off Footwear (QC): 6 1=Demonstrate adherence to instructed precautions during ADL tasks. 2=Patient will verbalize/demonstrate understanding of assistive devices/modifications for ADL. 3=Patient will improve strength/tolerance for activity to enable patient to perform ADL's. OT Education/Plan Problem List/Assessment Assessment: Decreased Activ Tolerance, Decreased Safety Aware, Impaired Self- Care Skills Discharge Recommendations Plan/Recommendations: Continue POC Treatment Plan/Plan of Care Patient would benefit from OT for education, treatment and training to promote independence in ADL's, mobility, safety and/or upper extremity function for ADL's. Plan of Care: ADL Retraining, Functional Mobility, Group Exercise/Act as Ind, UE Funct Exercise/Act Treatment Duration: Jun 04, 2022 Frequency: 3 times per week (3-5 TIMES PER WEEK) Estimated Hrs Per Day: .25 hour per day Rehab Potential: Fair Returned to recliner all needs met. Time Start Time: 09:53 Stop Time: 10:10 DATE: May 31, 2022 Total Time Billed (hr/min): 17 Billed Treatment Time ADL 17 min EDGARD DOE OT May 31, 2022 11:13
[2022-05-31] MEDS ORDERED: FURO40TA4 PO (13:07)
[2022-05-31] MEDS ORDERED: METO50TA15 PO (13:07)
[2022-05-31] MEDS ORDERED: WARF4TAB3 PO (13:07)
--- NOTE | 2022-05-31 13:31 | D/C HH Face to Face Order ---
D/C Face to Face Orders Instructions for Patient Via [facility], Patient Instructions/FollowUp: see instructions Physician to follow Patient: Shi Discharge Diet for Home: Low Sodium Diet Patient Data-Allergies,Ht & Wt Patient Allergies: Coded Allergies: Penicillins (Verified Allergy, Unknown, 05/27/22) Home Health Need/Face to Face Date of Face to Face: May 31, 2022 Clinical Findings: Generalized weakness and fatigue, Instability, Muscle weakness I have seen Pt [id number]: Yes Discharged To: Home Diagnosis/Conditions: HFpEF AFib CKD 4 Thrombocytopenia Debility Problems/Diagnosis/Condition: (1) Acute on chronic heart failure (2) CKD (chronic kidney disease) stage 4, GFR 15-29 ml/min (3) Atrial fibrillation (4) Thrombocytopenia (5) Obesity (6) Debility Patient is Homebound due to: Amy fall risk due to instabilty, Muscle weakness Homebound Status Due to the above stated illness, injury or surgical procedure (medical condition or diagnosis) and associated clinical findings, the patient is homebound because of his/her inability to leave home except with aid of a supportive device and/or person AND leaving the home requires a considerable and taxing effort or is medically contraindicated. Pt req the following assistanc: Aid of another person Home Health Nursing Orders Home Health Services Order: Nursing Services, Transportation Driver-Evaluate & Treat, Physical Therapy-Evaluate & Treat Therapy Orders Therapy Orders: OT (must have SN or PT order), Physical Therapy Therapy Specific Orders: Eval assistive deivces, Teach enviro modificat ions/safety, Gait training, Increase strength/endurance Certify Stmt I certify that this patient is under my care and that I, a nurse practitioner or a physician; a medical laboratory assistant working with me, had a face to face encounter that - meets the physician face to face encounter requirements with this patient as dated. VANDANA STOVALL MD May 31, 2022 13:31
[2022-05-31 14:07] VITALS: BP 129/61
--- NOTE | 2022-05-31 19:07 | Discharge Summary ---
Discharge Summary Hospital Course Problems/Dx: (1) Acute on chronic heart failure Status: Acute Qualifiers: Qualified Codes: I50.33 - Acute on chronic diastolic (congestive) heart failure (2) Atrial fibrillation Status: Chronic Qualifiers: Qualified Codes: I48.21 - Permanent atrial fibrillation (3) Thrombocytopenia Status: Acute (4) CKD (chronic kidney disease) stage 4, GFR 15-29 ml/min Status: Chronic (5) Obesity Status: Chronic Qualifiers: Qualified Codes: E66.01 - Morbid (severe) obesity due to excess calories; Z68.41 - Body mass index [BMI] 40.0-44.9, adult Hospital Course Date of Admission: May 27, 2022 at 23:15 Admission Diagnosis : Acute on chronic HFpEF Family Physician/Provider: Tommy Chaves MD Date of Discharge: 05/31/22 Discharge Diagnosis: Acute on chronic HFpEF Hospital Course: Amara Padgett is an 81 year old female with PMH HTN, HFpEF, AFib, CKD 4, obesity, who was admitted with acute on chronic HFpEF. She recently moved to the area to be closer to her son and has not established with a primary care physic eagle. She was found to have a CHF exacerbation. Cardiology was consulted and assisted with her care. She received IV diuretics. Her echo showed normal EF with grade II diastolic dysfunction and moderate aortic valve stenosis. Her medications were adjusted as needed. She improved and was discharged home in stable condition. She was set up with home health care. She should establish w ith a PCP. She should follow up with Dr. Barahona as scheduled. She will likely need to be referred to a stewarding supervisor as well. Labs and Pending Lab Test: Laboratory Tests 05/31/22 05:27: White Blood Count 7.1, Red Blood Count 4.07, Hemoglobin 12.3, Hematocrit 37, Mean Corpuscular Volume 91, Mean Corpuscular Hemoglobin 30, Mean Corpuscular Hemoglobin Concent 33, Red Cell Distribution Width 18.6H, Platelet Count 97L, Mean Platelet Volume 10.1, Percent Immature Platelet Fraction 2.5, Prothrombin Time 24.0H, INR Comment 2.1H, Sodium Level 141, Potassium Level 3.8, Chloride Level 101, Carbon Dioxide Level 30, Anion Gap 10, Blood Urea Nitrogen 30H, Creatinine 1.76H, Estimat Glomerular Filtration Rate 29, BUN/Creatinine Ratio 17, Glucose Level 96, Calcium Level 8.8, Phosphorus Level 3.3, Magnesium Level 2.0 Home Meds Active Warfarin Sodium 4 Mg Tablet 4 Mg PO DAILY 30 Days Furosemide 40 Mg Tablet 40 Mg PO DAILY 30 Days Metoprolol Tartrate 50 Mg Tablet 25 Mg PO BID 30 Days Reported Lisinopril 10 Mg Tablet 10 Mg PO DAILY Magnesium (Magnesium Oxide) 250 Mg Tablet 250 Mg PO DAILY Potassium Chloride 10 Meq Tab.er.prt 10 Meq PO DAILY Ferrous Sulfate 325 Mg (65 Mg Iron) Tablet 325 Mg PO TID Atorvastatin Calcium 40 Mg Tablet 40 Mg PO HS Memantine HCl 10 Mg Tablet 10 Mg PO BID Allopurinol 100 Mg Tablet 100 Mg PO DAILY Assessment/Pt Instructions See instructions. Establish with a primary care physician. Discharge Planning: >30 minutes discharge planning Discharge Instructions Discharge Diet: Low Sodium Diet Activity as Tolerated: Yes Consultations Cardiology Discharge Physical Examination Vital Signs Vital Signs Date Time Temp Pulse Resp B/P (MAP) Pulse Ox O2 Delivery O2 Flow Rate FiO2 05/31/22 14:07 36.3 83 18 129/61 94 Room Air General Appearance: No Apparent Distress, Obese Respiratory: Lungs Clear, No Respiratory Distress Cardiovascular: Regular Rate, Rhythm Gastrointestinal: Normal Bowel Sounds, Soft Extremity: Non Tender Skin: Normal Color, Warm/Dry Neurologic/Psychiatric: Alert, Normal Mood/Affect Allergies: Coded Allergies: Penicillins (Verified Allergy, Unknown, 05/27/22) Copy Copies To 1: TOMMY CHAVES MD Discharge Summary Date of Admission May 27, 2022 at 23:15 Date of Discharge May 31, 2022 at 14:05 Discharge Date: May 31, 2022 Discharge Time: 14:05 Admission Diagnosis CHF Exacerbation Consults/Procedures Consulations Cardiology Discharge Diagnosis Acute on chronic HFpEF A-fib on coumadin Debility CKD 4 Thrombocytopenia (1) Acute on chronic heart failure Status: Acute Qualifiers: Qualified Codes: I50.33 - Acute on chronic diastolic (congestive) heart failure (2) Atrial fibrillation Status: Chronic Qualifiers: Qualified Codes: I48.21 - Permanent atrial fibrillation (3) Thrombocytopenia Status: Acute (4) CKD (chronic kidney disease) stage 4, GFR 15-29 ml/min Status: Chronic (5) Obesity Status: Chronic Qualifiers: Qualified Codes: E66.01 - Morbid (severe) obesity due to excess calories; Z68.41 - Body mass index [BMI] 40.0-44.9, adult SIA,VANDANA M MD May 31, 2022 19:05
== END 2022-05-31 14:05 | disposition home health service (06) | DRG 291 ==
LOC: ER 21:25 → EDBD 21:25 → 4TH 23:15
PROVIDERS: ADMIT Family Medicine; ATTEND Internal Medicine
DX: I13.0 Hypertensive heart and chronic kidney disease with heart failure and stage 1 through stage 4 chronic kidney disease, or unspecified chronic kidney disease (principal); I50.33 Acute on chronic diastolic (congestive) heart failure; I48.21 Permanent atrial fibrillation; N18.4 Chronic kidney disease, stage 4 (severe); Z68.41 Body mass index [BMI] 40.0-44.9, adult; D69.6 Thrombocytopenia, unspecified; E66.01 Morbid (severe) obesity due to excess calories; Z79.01 Long term (current) use of anticoagulants; R53.81 Other malaise; Z90.5 Acquired absence of kidney; E78.5 Hyperlipidemia, unspecified; F03.90 Unspecified dementia, unspecified severity, without behavioral disturbance, psychotic disturbance, mood disturbance, and anxiety; E11.22 Type 2 diabetes mellitus with diabetic chronic kidney disease; I35.0 Nonrheumatic aortic (valve) stenosis; Z86.73 Personal history of transient ischemic attack (TIA), and cerebral infarction without residual deficits
CPT/HCPCS: 36415; 71045; 80048; 80053; 81000; 82728; 83540; 83550; 83735; 83880; 84100; 84484; 85007; 85025; 85027; 85610; 86141; 93005; 93306

== ENCOUNTER 2022-07-25 10:14 | Observation (INO) | payer MEDICARE, BC ==
[~2022-07-25] VITALS: Ht 157 cm; Wt 94.0 kg
[~2022-07-25 10:14] MED LIST: ALLO100T PO; ATOR20TA66 PO; ATOR40TA70 PO; FERR236T3 PO; FERR325T18 PO; FURO-124 PO; FURO20TA4 PO; FURO40TA4 PO; LISI10TA25 PO; MAGN250T13 PO; MEMA10TA57 PO; MEMA5TAB PO; METO100T12 PO; METO50TA15 PO; POTA-177 PO; WARF-48 PO; WARF3TAB56 PO; WARF4TAB3 PO
--- NOTE | 2022-07-25 11:12 | ED Fall/Injury ---
General Chief Complaint: Trauma-Non Activation Stated Complaint: FALL Nursing Triage Note: PT TO [facility] WITH CC OF A FALL AT HOME LAST NIGHT ABOUT 2099 AFTER HER SON LEFT HER HOME. PT WAS ON THE FLOOR UNTIL SONE CAME BACK THIS MORNING AND EMS PICKED HER UP OFF THE FLOOR. STATES LT HIP PAIN Source: patient, family, EMS Exam Limitations: no limitations History of Present Illness Date Seen by Provider: Jul 25, 2022 Time Seen by Provider: 10:17 Initial Comments Patient arrives to the emergency room via EMS after having a fall last night after 2099. Her son was in the home until about that time. She fell going to the restroom at some point after that and laid on the floor for several hours. Son returned to her home this morning to find her lying on the floor. She was alert and denies any loss of consciousness. He found her lying on her back but she appears to have bruising on her face. Patient reports back pain, chronic neck pain, and a headache. She has generalized hip aching but no focal pain, evidence of hip injury, or pain with rotation of her hips. She moves all 4 extremities equally. She is alert and oriented. She denies any prodrome to her fall such as lightheadedness, dizziness, chest pain, or shortness of breath. She had a recent admission in May for acute exacerbation of CHF. Vital signs are stable. Patient is later accompanied by her son. She lives alone but is frequently checked on by her son. Dr. Osullivan is her primary care provider and Dr. Barahona is her medical insurance claims specialist. Allergies and Home Medications Allergies Coded Allergies: Penicillins (Verified Allergy, Unknown, 05/27/22) Patient Home Medication List Home Medication List Reviewed: Yes Allopurinol (Allopurinol) 100 Mg Tablet, 100 MG PO DAILY, (Reported) Entered as Reported by: DEVI SILVA on 05/27/222154 Last Action: Reviewed Atorvastatin Calcium (Atorvastatin Calcium) 40 Mg Tablet, 40 MG PO 1800, (Reported) Entered as Reported by: JERALD RAMAN on 05/30/221455 Last Action: Reviewed Ferrous Sulfate (Ferrous Sulfate) 325 Mg (65 Mg Iron) Tablet, 650 MG PO DAILY, (Reported) Entered as Reported by: JERALD RAMAN on 05/30/221456 Last Action: Reviewed Ferrous Sulfate (Ferrous Sulfate) 325 Mg (65 Mg Iron) Tablet, 325 MG PO 1800, (Reported) Entered as Reported by: DAV SAM on 07/26/22 1026 Last Action: Reviewed Furosemide (Furosemide) 40 Mg Tablet, 40 MG PO DAILY, (Reported) Entered as Reported by: DAV SAM on 07/26/22 102 Last Action: Reviewed Loratadine (Loratadine) 10 Mg Tablet, 10 MG PO DAILY, (Reported) Entered as Reported by: DAV SAM on 07/26/22 102 Last Action: Reviewed Losartan Potassium (Losartan Potassium) 25 Mg Tablet, 25 MG PO 1800, (Reported) Entered as Reported by: DAV SAM on 07/26/22 102 Last Action: Reviewed Magnesium Oxide (Magnesium) 250 Mg Tablet, 250 MG PO DAILY, (Reported) Entered as Reported by: JERALD RAMAN on 05/30/22 1501 Last Action: Reviewed Memantine HCl (Memantine HCl) 10 Mg Tablet, 10 MG PO BID, (Reported) Entered as Reported by: JERALD RAMAN on 05/30/22 1456 Last Action: Reviewed Metoprolol Tartrate (Metoprolol Tartrate) 50 Mg Tablet, 25 MG PO BID, (Reported) Entered as Reported by: DAV SAM on 07/26/22 102 Last Action: Reviewed Potassium Chloride (Potassium Chloride) 10 Meq Tab.er.prt, 10 MEQ PO DAILY, (Reported) Entered as Reported by: JERALD RAMAN on 05/30/22 1500 Last Action: Reviewed Rivaroxaban (Xarelto Tablet) 20 Mg Tablet, 20 MG PO 1800, (Reported) Entered as Reported by: DAV SAM on 07/26/22 102 Last Action: Reviewed Discontinued Medications Furosemide (Furosemide) 40 Mg Tablet, 40 MG PO DAILY Discontinued Reason: Duplicate Order Prescribed by: VANDANA STOVALL on 05/31/22 1307 Last Action: Discontinued Lisinopril (Lisinopril) 10 Mg Tablet, 10 MG PO DAILY, (Reported) Discontinued Reason: No Longer Taking Entered as Reported by: JERALD RAMAN on 05/30/22 1502 Last Action: Discontinued Metoprolol Tartrate (Metoprolol Tartrate) 50 Mg Tablet, 25 MG PO BID Discontinued Reason: No Longer Taking Prescribed by: VANDANA STOVALL on 05/31/22 1307 Last Action: Discontinued Warfarin Sodium (Warfarin Sodium) 4 Mg Tablet, 4 MG PO DAILY Discontinued Reason: No Longer Taking Prescribed by: VANDANA STOVALL on 05/31/22 1307 Last Action: Discontinued Review of Systems Review of Systems Constitutional: see HPI Eyes: No Symptoms Reported Ears, Nose, Mouth, Throat: see HPI (buising to face) Respiratory: no symptoms reported Cardiovascular: no symptoms reported Gastrointestinal: no symptoms reported Genitourinary: no symptoms reported Musculoskeletal: see HPI Skin: no symptoms reported Psychiatric/Neurological: See HPI Past Wisfpzs-Envxtd-Qaxwlf Hx Patient Social History Tobacco Use?: No Substance use?: No Alcohol Use?: No Immunizations Up To Date First/Initial COVID19 Vaccinat: NO Past Medical History Surgery/Hospitalization HX: BILATERAL FOOT/KNEE, RIGHT NEPHRECTOMY, HYSTERECTOMY, CHF, DEMENTIA, HLD, HTN, Surgeries: Yes Appendectomy, Hysterectomy, Nephrectomy Respiratory: No Cardiac: Yes (CHF) Atrial Fibrillation, Chronic Edema/Swelling, Irregular Heartbeat Neurological: Yes Dementia, Stroke Genitourinary: Yes (single kidney) Renal Failure Gastrointestinal: No Musculoskeletal: Yes Family Medical History No Pertinent Family Hx Physical Exam Vital Signs Vital Signs - First Documented 07/25/22 07/25/22 10:16 15:17 Temp 35.2 Pulse 76 Resp 18 B/P (MAP) 136/77 (96) Pulse Ox 95 O2 Delivery Room Air Capillary Refill : Less Than 3 Seconds Height, Weight, BMI Height: '" Weight: lbs. oz. kg; 38.00 BMI Method: General Appearance: WD/WN, no apparent distress HEENT: other (facial contusions) Neck: normal inspection, tender midline (TTP posteriorly stated as chronic and unchanged) Cardiovascular: regular rate, rhythm, systolic murmur Respiratory: lungs clear, normal breath sounds, no respiratory distress Gastrointestinal: non tender, soft Extremities: normal inspection, other (TTP of the knees bilaterally stated as chronic and unchanged) Neurologic/Psychiatric: no motor/sensory deficits, alert, normal mood/affect Skin: normal color, warm/dry Lindy Coma Score Best Eye Response: (4) Open Spontaneously Best Verbal Response: (5) Oriented (to baseline) Best Motor Response: (6) Obeys Commands [place] Total: 15 Progress/Results/Core Measures Results/Orders Lab Results Laboratory Tests Test 07/25/22 11:18 07/25/22 11:46 Range/Units White Blood Count 18.1 H 4.3-11.0 10^3/uL Red Blood Count 4.47 3.80-5.11 10^6/uL Hemoglobin 13.7 11.5-16.0 g/dL Hematocrit 41 35-52 % Mean Corpuscular Volume 92 80-99 fL Mean Corpuscular Hemoglobin 31 25-34 pg Mean Corpuscular Hemoglobin Concent 33 32-36 g/dL Red Cell Distribution Width 16.8 H 10.0-14.5 % Platelet Count 127 L 130-400 10^3/uL Mean Platelet Volume 10.1 9.0-12.2 fL Immature Granulocyte % (Auto) 1 % Neutrophils (%) (Auto) 88 H 42-75 % Lymphocytes (%) (Auto) 6 L 12-44 % Monocytes (%) (Auto) 5 0-12 % Eosinophils (%) (Auto) 0 0-10 % Basophils (%) (Auto) 0 0-10 % Neutrophils # (Auto) 16.0 H 1.8-7.8 10^3/uL Lymphocytes # (Auto) 1.0 1.0-4.0 10^3/uL Monocytes # (Auto) 1.0 0.0-1.0 10^3/uL Eosinophils # (Auto) 0.0 0.0-0.3 10^3/uL Basophils # (Auto) 0.1 0.0-0.1 10^3/uL Immature Granulocyte # (Auto) 0.1 0.0-0.1 10^3/uL Neutrophils % (Manual) 88 % Lymphocytes % (Manual) 4 % Monocytes % (Manual) 6 % Band Neutrophils 2 % Percent Immature Platelet Fraction 2.4 0.0-7.6 % Anisocytosis SLIGHT Sodium Level 140 135-145 MMOL/L Potassium Level 4.4 3.6-5.0 MMOL/L Chloride Level 103 98-107 MMOL/L Carbon Dioxide Level 25 21-32 MMOL/L Anion Gap 12 5-14 MMOL/L Blood Urea Nitrogen 40 H 7-18 MG/DL Creatinine 1.65 H 0.60-1.30 MG/DL Estimat Glomerular Filtration Rate 31 BUN/Creatinine Ratio 24 Glucose Level 147 H 70-105 MG/DL Calcium Level 10.0 8.5-10.1 MG/DL Corrected Calcium 10.2 H 8.5-10.1 MG/DL Magnesium Level 2.1 1.6-2.4 MG/DL Total Bilirubin 2.4 H 0.1-1.0 MG/DL Aspartate Amino Transf (AST/SGOT) 48 H 5-34 U/L Alanine Aminotransferase (ALT/SGPT) 40 0-55 U/L Alkaline Phosphatase 197 H 40-136 U/L Total Creatine Kinase 172 H 29-168 U/L Total Protein 7.4 6.4-8.2 GM/DL Albumin 3.8 3.2-4.5 GM/DL Urine Color YELLOW Urine Clarity SL CLOUDY Urine pH 6.0 5-9 Urine Specific [place] 1.010 L 1.016-1.022 Urine Protein TRACE H NEGATIVE Urine Glucose (UA) NEGATIVE NEGATIVE Urine Ketones NEGATIVE NEGATIVE Urine Nitrite NEGATIVE NEGATIVE Urine Bilirubin NEGATIVE NEGATIVE Urine Urobilinogen 0.2 < = 1.0 MG/DL Urine Leukocyte Esterase NEGATIVE NEGATIVE Urine RBC (Auto) TRACE-I H NEGATIVE Urine RBC 0-2 /HPF Urine WBC RARE /HPF Urine Squamous Epithelial Cells 10-25 H /HPF Urine Crystals NONE /LPF Urine Bacteria MODERATE H /HPF Urine Casts NONE /LPF Urine Mucus NEGATIVE /LPF Urine Culture Indicated YES Micro Results Microbiology 07/25/22 Urine Culture - Final, Complete NO GROWTH My Orders Orders - JOSÉ MIGUEL ALEMAN MD Cbc With Automated Diff (07/25/22 11:12) Comprehensive Metabolic Panel (07/25/22 11:12) Creatine Kinase (07/25/22 11:12) Magnesium (07/25/22 11:12) Ua Culture If Indicated (07/25/22 11:12) Ed Iv/Invasive Line Start (07/25/22 11:12) Ns Iv 500 Ml (Sodium Chloride 0.9%) (07/25/22 11:15) Fentanyl Inj (Sublimaze Injection) (07/25/22 11:15) Ct Head/Face/Cervical Wo (07/25/22 11:12) Ct Thoracic/Lumbar Spine Wo (07/25/22 11:12) Manual Differential (07/25/22 11:18) Urine Culture (07/25/22 11:46) Chest 1 View, Ap/Pa Only (07/25/22 12:33) Ekg Tracing (07/25/22 14:31) Monitor-Rhythm Ecg Trace Only (07/25/22 14:31) Code/Resuscitation (07/25/22 14:41) Ed Admission (Communication) (07/25/22 14:56) Medications Given in ED Vital Signs/I&O 07/25/22 07/25/22 07/25/22 10:16 11:33 15:17 Temp 35.2 35.2 36.6 Pulse 76 80 Resp 18 B/P (MAP) 136/77 (96) 126/58 Pulse Ox 95 95 O2 Delivery Room Air Room Air Blood Pressure Mean: 96 Progress Progress Note : Time: 14:44 Progress Note Patient was interviewed and examined. The CT of the head, facial bones, and cervical spine was obtained as well as CT of the thoracic and lumbar spine based on patient's complaints. C-collar was not applied as body habitus seem prohibitive and patient stated her neck pain was stable from chronic. CT imaging revealed no acute injuries. Labs were obtained and interpreted/reviewed by me. Creatinine was elevated at baseline level. Alk phos and transaminases were minimally elevated. Urine appeared contaminated with no true sign of pyuria. CK was minimally elevated which is to be expected after lying on the floor for several hours. WBC was elevated. No evidence of infection was seen on urinalysis or chest x-ray. WBC elevation is thought to be secondary to physi ologic stress. Labs were otherwise relatively unremarkable by my interpretation. Patient wanted to attempt ambulation to determine if she was safe to go home. She was able to get up and maneuver the walker on her own. However, she was wanting to list to the left in direction of ambulation. She was able to overcome this with concentration but then reverted back to a leftward direction. She did not seem to have any deficit with her strength in 1 leg versus the other. She otherwise appears neurologically intact. I discussed the situation with patient's son. He has significant concerns about her being at home. She lives alone and does not have full-time support. She is a definite fall risk. Patient receives physical therapy support at home which should be continued. Case was reviewed with Dr. Stovall, hospitalist who was agreeable to admission. Patient is a full code. Initial ECG Impression Date: Jul 25, 2022 Initial ECG Impression Time: 14:52 Initial ECG Rate: 72 Initial ECG Rhythm: A Fib/Flutter Comment Atrial fibrillation with no ST elevation or depression. No abnormal intervals or axis deviation. Diagnostic Imaging Diagonstic Imaging: CT Plain Films/CT/US/NM/MRI: c-spine, head Comments NAME: RACHELE LANDAVERDE [facility] REC#: [id number] PT STATUS: ADM Isabelle : 1940 PHYSICIAN: JOSÉ MIGUEL ALEMAN MD ADMIT DATE: 07/25/22 Signed Date of Exam:07/25/22 CT HEAD/FACE/CERVICAL WO PROCEDURE: CT head, face, and cervical spine without contrast. TECHNIQUE: Multiple contiguous axial images were obtained through the head, neck, and facial bones without the use of intravenous contrast. Sagittal and coronal reformations through the cervical spine and facial bones were also performed. Auto Exposure Controls were utilized during the CT exam to meet ALARA standards for radiation dose reduction. INDICATION: Fall with head, face and neck injury. No prior studies are available for comparison. CT HEAD: Ventricles and sulci are consistent with the patient's age. No sulcal effacement or midline shift is identified. No acute intra-axial or extra-axial hemorrhage is identified. Small low-density left centrum semiovale is noted consistent with old infarct or chronic microvascular ischemia. Cisterns are patent. Visualized paranasal sinuses are clear. IMPRESSION: No acute intracranial process is detected. CT cervical spine: Curvature is normal. There is minimal retrolisthesis C5 on C6. Severe degenerative disc disease C5-C6 and C6-C7 levels noted with significant disc space narrowing and marginal spurring. No fractures are identified. Prevertebral tissues are within normal limits. Odontoid is intact. IMPRESSION: Cervical spondylosis. No acute bony abnormality is detected. CT face: The mandible is intact. Zygomatic arches are intact. The maxillary sinus ruiz, nasal bones and orbital ruiz appear to be intact. The visualized paranasal sinuses are clear. Mastoids are well aerated. IMPRESSION: No facial bone fracture is detected. Dictated by: Dictated on workstation # [id number] Dict: 07/25/22 1214 Trans: 07/25/22 1606 [id number] Interpreted by: KARENA WEBBER MD Electronically signed by: KARENA WEBBER MD 07/25/22 1606 Diagonstic Imaging: CT Plain Films/CT/US/NM/MRI: other (Thoracolumbar spine) Comments NAME: RACHELE LANDAVERDE [facility] REC#: [id number] PT STATUS: ADM Isabelle : 1940 PHYSICIAN: JOSÉ MIGUEL ALEMAN MD ADMIT DATE: 07/25/22 Signed Date of Exam:07/25/22 CT THORACIC/LUMBAR SPINE WO PROCEDURE: CT thoracic and lumbar spine without contrast. TECHNIQUE: Multiple contiguous axial images were obtained through the thoracic and lumbar spine without the use of intravenous contrast. Sagittal and coronal reformations were then performed. All CT scans use one or more of the following dose optimizing techniques: automated exposure control, MA and/or KvP adjustment based on a patient size and exam type, or iterative reconstruction. INDICATION: Fall. CT thoracic spine: Curvature and alignment of the thoracic spine is normal. Vertebral body heights are well-maintained. No acute compression fracture is seen. There is multilevel degenerative disc disease with variable disc space narrowing and marginal spurring. Paraspinous tissues are unremarkable. CT lumbar spine: Curvature and alignment of the lumbar spine is normal. Vertebral body heights are well-maintained. No acute compression fracture seen. There is multilevel lumbar spondylosis with variable disc space narrowing and marginal spurring. There is a prominent Schmorl's node along the inferior endplate of L2. Aorta is heavily calcified but nonaneurysmal. IMPRESSION: Lumbar spondylosis. No acute bony abnormality is detected. Dictated by: Dictated on workstation # [id number] Dict: 07/25/22 1220 Trans: 07/25/22 1606 [id number] Interpreted by: KARENA WEBBER MD Electronically signed by: KARENA WEBBER MD 07/25/22 1606 Diagonstic Imaging: Xray Plain Films/CT/US/NM/MRI: chest Comments NAME: RACHELE LANDAVERDE [facility] REC#: [id number] PT STATUS: ADM Isabelle : 1940 PHYSICIAN: JOSÉ MIGUEL ALEMAN MD ADMIT DATE: 07/25/22 Signed Date of Exam:07/25/22 CHEST 1 VIEW, AP/PA ONLY CLINICAL INDICATION: Patient is status post fall/injury. EXAM: Portable chest x-ray upright view. COMPARISON: Chest x-ray dated 05/27/2022. FINDINGS: Lungs/pleura: Lungs are clear. There is no pneumothorax. There is no pleural effusion. Mediastinum: Unremarkable. Pulmonary vasculature: Unremarkable. Heart: Upper limits of normal heart size is again seen. Bones/extrathoracic soft tissue: There are degenerative spurs involving the thoracic spine. There is old healed fracture involving the posterior aspect of the left T4 rib. IMPRESSION: There is no radiographic evidence of acute cardiopulmonary process. There is no acute fracture seen. Dictated by: Dictated on workstation # [id number] Dict: 07/25/22 1253 Trans: 07/25/221756 AS6 [id number] Interpreted by: GRACE MARTINEZ MD Electronically signed by: GRACE MARTINEZ MD 07/25/221756 Departure Communication (Admissions) Time/Spoke to Admitting Phy: 14:40 Dr. Stovall Impression Primary Impression: Fall on same level Qualified Codes: W18.30XA - Fall on same level, unspecified, initial encounter Additional Impressions: Minor head injury Qualified Codes: S09.90XA - Unspecified injury of head, initial encounter Generalized weakness Disposition: ADMITTED INPATIENT Condition: Stable Admissions Decision to Admit Reason: Admit from ER (General) Decision to Admit/Date: Jul 25, 2022 Time/Decision to Admit Time: 14:40 Departure-Patient Inst. Referrals: MARY OSULLIVAN MD (PCP/Family) Primary Care Physician Copy Copies To 1: MARY OSULLIVAN MD, JOSHUA T MD Jul 25, 2022 11:12
[2022-07-25] MEDS ORDERED: fentaNYL INJ 100 MCG/2 ML AMP IVP ONE (11:15)
[2022-07-25] MEDS ORDERED: NS IV 500 ML 500 ML IV ONE (11:15)
[2022-07-25 11:33] LABS: BASOPHILS # (AUTO) 0.1 10^3/uL (0.0-0.1); BASOPHILS % (AUTO) 0 % (0-10); EOSINOPHILS % (AUTO) 0 % (0-10)
[2022-07-25 11:35] LABS: HEMATOCRIT 41 % (35-52); HEMOGLOBIN 13.7 g/dL (11.5-16.0); LYMPHOCYTES % (AUTO) 6 % (12-44); MEAN CORPUSCULAR HEMOGLOBIN 31 pg (25-34); MEAN CORPUSCULAR HGB CONC 33 g/dL (32-36); MEAN CORPUSCULAR VOLUME 92 fL (80-99); MEAN PLATELET VOLUME 10.1 fL (9.0-12.2); MONOCYTES % (AUTO) 5 % (0-12); NEUTROPHILS % (AUTO) 88 % (42-75); PLATELET COUNT 127 10^3/uL (130-400); WHITE BLOOD COUNT 18.1 10^3/uL (4.3-11.0)
[2022-07-25 11:44] LABS: ALBUMIN 3.8 GM/DL (3.2-4.5)
[2022-07-25 11:47] LABS: TOTAL PROTEIN 7.4 GM/DL (6.4-8.2)
[2022-07-25 11:49] LABS: BILIRUBIN,TOTAL 2.4 MG/DL (0.1-1.0)
[2022-07-25 11:51] LABS: CREATININE SERUM 1.65 MG/DL (0.60-1.30)
[2022-07-25 11:52] LABS: POTASSIUM 4.4 MMOL/L (3.6-5.0)
[2022-07-25 11:53] LABS: MAGNESIUM 2.1 MG/DL (1.6-2.4)
[2022-07-25 11:53] LABS: BILIRUBIN,URINE NEGATIVE (NEGATIVE); CLARITY,URINE SL CLOUDY; COLOR,URINE YELLOW; GLUCOSE, URINE (UA) NEGATIVE (NEGATIVE); KETONES,URINE NEGATIVE (NEGATIVE); LEUKOCYTE ESTERASE ,URINE NEGATIVE (NEGATIVE); NITRITE,URINE NEGATIVE (NEGATIVE); PROTEIN,URINE TRACE (NEGATIVE)
[2022-07-25 12:02] LABS: RBC,URINE 0-2 /HPF; WBC,URINE RARE /HPF
[2022-07-25 12:03] LABS: BACTERIA,URINE MODERATE /HPF
[2022-07-25 12:10] LABS: BAND NEUTROPHILS 2 %; NEUTROPHILS % (MANUAL) 88 %
[2022-07-25 12:11] LABS: ANISOCYTOSIS SLIGHT; LYMPHOCYTES % (MANUAL) 4 %; MONOCYTES % (MANUAL) 6 %
--- NOTE | 2022-07-25 12:22 | Diagnostic Imaging Report ---
PROCEDURE: CT head, face, and cervical spine without contrast. TECHNIQUE: Multiple contiguous axial images were obtained through the head, neck, and facial bones without the use of intravenous contrast. Sagittal and coronal reformations through the cervical spine and facial bones were also performed. Auto Exposure Controls were utilized during the CT exam to meet ALARA standards for radiation dose reduction. INDICATION: Fall with head, face and neck injury. No prior studies are available for comparison. CT HEAD: Ventricles and sulci are consistent with the patient's age. No sulcal effacement or midline shift is identified. No acute intra-axial or extra-axial hemorrhage is identified. Small low-density left centrum semiovale is noted consistent with old infarct or chronic microvascular ischemia. Cisterns are patent. Visualized paranasal sinuses are clear. IMPRESSION: No acute intracranial process is detected. CT cervical spine: Curvature is normal. There is minimal retrolisthesis C5 on C6. Severe degenerative disc disease C5-C6 and C6-C7 levels noted with significant disc space narrowing and marginal spurring. No fractures are identified. Prevertebral tissues are within normal limits. Odontoid is intact. IMPRESSION: Cervical spondylosis. No acute bony abnormality is detected. CT face: The mandible is intact. Zygomatic arches are intact. The maxillary sinus ruiz, nasal bones and orbital ruiz appear to be intact. The visualized paranasal sinuses are clear. Mastoids are well aerated. IMPRESSION: No facial bone fracture is detected. Dictated by: Dictated on workstation # [id number]
--- NOTE | 2022-07-25 12:28 | Diagnostic Imaging Report ---
PROCEDURE: CT thoracic and lumbar spine without contrast. TECHNIQUE: Multiple contiguous axial images were obtained through the thoracic and lumbar spine without the use of intravenous contrast. Sagittal and coronal reformations were then performed. All CT scans use one or more of the following dose optimizing techniques: automated exposure control, MA and/or KvP adjustment based on a patient size and exam type, or iterative reconstruction. INDICATION: Fall. CT thoracic spine: Curvature and alignment of the thoracic spine is normal. Vertebral body heights are well-maintained. No acute compression fracture is seen. There is multilevel degenerative disc disease with variable disc space narrowing and marginal spurring. Paraspinous tissues are unremarkable. CT lumbar spine: Curvature and alignment of the lumbar spine is normal. Vertebral body heights are well-maintained. No acute compression fracture seen. There is multilevel lumbar spondylosis with variable disc space narrowing and marginal spurring. There is a prominent Schmorl's node along the inferior endplate of L2. Aorta is heavily calcified but nonaneurysmal. IMPRESSION: Lumbar spondylosis. No acute bony abnormality is detected. Dictated by: Dictated on workstation # [id number]
--- NOTE | 2022-07-25 13:00 | Diagnostic Imaging Report ---
CLINICAL INDICATION: Patient is status post fall/injury. EXAM: Portable chest x-ray upright view. COMPARISON: Chest x-ray dated 05/27/2022. FINDINGS: Lungs/pleura: Lungs are clear. There is no pneumothorax. There is no pleural effusion. Mediastinum: Unremarkable. Pulmonary vasculature: Unremarkable. Heart: Upper limits of normal heart size is again seen. Bones/extrathoracic soft tissue: There are degenerative spurs involving the thoracic spine. There is old healed fracture involving the posterior aspect of the left T4 rib. IMPRESSION: There is no radiographic evidence of acute cardiopulmonary process. There is no acute fracture seen. Dictated by: Dictated on workstation # [id number]
[2022-07-25] MEDS ORDERED: CALCIUM CARBONATE 500 MG (TUMS) TAB.CHEW PO PRN (16:00)
[2022-07-25] MEDS ORDERED: LACTULOSE SYRUP 10GM/15ML (ENULOSE) 30ML UDC PO PRN (16:00)
[2022-07-25] MEDS ORDERED: ONDANSETRON 4 MG/2 ML (SDV) Z0FRAN IV PRN (16:00)
[2022-07-25] MEDS ORDERED: MILK OF MAGNESIA 400 MG/5 ML 30 ML UDC PO PRN (16:00)
[2022-07-25] MEDS ORDERED: BISACODYL 10 MG SUPP (DULCOLAX) PR PRN (16:00)
[2022-07-25] MEDS ORDERED: ANTACID SUSP 30 ML UDC (MYLANTA) PO PRN (16:00)
[2022-07-25] MEDS ORDERED: ONDANSETRON 4 MG (ZOFRAN) ORAL DISSOLVE TAB PO PRN (16:00)
[2022-07-25] MEDS ORDERED: MELATONIN 3 MG TABLET PO PRN (16:00)
[2022-07-25] MEDS ORDERED: polyethylene glycoL POWDER 17 GM (MIRALAX) PACK PO PRN (16:00)
[2022-07-25 16:19] VITALS: BP 139/78
[2022-07-25] MEDS ORDERED: warFARin 4 MG (COUMADIN) TAB PO SCH (18:00)
[2022-07-25 19:49] VITALS: BP 92/50
[2022-07-25 20:07] VITALS: BP 112/69
[2022-07-25] MEDS: APIXABAN 2.5 MG (ELIQUIS) TABLET PO SCH (20:07)
[2022-07-25] MEDS: DOCUSATE SODIUM 100 MG (COLACE) CAP PO SCH (20:07)
[2022-07-25] MEDS: SENNOSIDES 8.6 MG (SENOKOT) TAB PO SCH (20:07)
[2022-07-25] MEDS: meTOprolol TARTRATE 25 MG (LOPRESSOR) TABLET PO SCH (20:11)
[2022-07-25 23:16] VITALS: BP 129/60
[2022-07-26 03:23] VITALS: BP 105/62
[2022-07-26 05:23] LABS: HEMOGLOBIN 10.8 g/dL (11.5-16.0); MEAN CORPUSCULAR VOLUME 92 fL (80-99); NEUTROPHILS % (AUTO) 82 % (42-75)
[2022-07-26 05:25] LABS: BASOPHILS % (AUTO) 0 % (0-10); EOSINOPHILS # (AUTO) 0.3 10^3/uL (0.0-0.3); EOSINOPHILS % (AUTO) 2 % (0-10); HEMATOCRIT 33 % (35-52); LYMPHOCYTES # (AUTO) 1.2 10^3/uL (1.0-4.0); LYMPHOCYTES % (AUTO) 7 % (12-44); MEAN CORPUSCULAR HEMOGLOBIN 31 pg (25-34); MEAN CORPUSCULAR HGB CONC 33 g/dL (32-36); MEAN PLATELET VOLUME 10.6 fL (9.0-12.2); MONOCYTES # (AUTO) 1.2 10^3/uL (0.0-1.0); MONOCYTES % (AUTO) 8 % (0-12); NEUTROPHILS # (AUTO) 12.8 10^3/uL (1.8-7.8); PLATELET COUNT 115 10^3/uL (130-400); WHITE BLOOD COUNT 15.6 10^3/uL (4.3-11.0)
[2022-07-26 05:39] LABS: CALCIUM 8.8 MG/DL (8.5-10.1); CREATININE SERUM 1.64 MG/DL (0.60-1.30)
[2022-07-26 07:21] VITALS: BP 116/58
[2022-07-26] MEDS: ALLOPURINOL 100 MG (ZYLOPRIM) TAB PO SCH (08:39)
[2022-07-26] MEDS: APIXABAN 2.5 MG (ELIQUIS) TABLET PO SCH ×2 (08:39→19:49)
[2022-07-26] MEDS: DOCUSATE SODIUM 100 MG (COLACE) CAP PO SCH ×2 (08:39→19:49)
[2022-07-26] MEDS: meTOprolol TARTRATE 25 MG (LOPRESSOR) TABLET PO SCH ×2 (08:39→19:50)
[2022-07-26] MEDS: ACETAMINOPHEN 325 MG TABLET PO PRN ×2 (08:39→19:49)
[2022-07-26] MEDS: SENNOSIDES 8.6 MG (SENOKOT) TAB PO SCH ×2 (08:39→19:49)
[2022-07-26] MEDS: MEMANTINE 5 MG (NAMENDA) TABLET PO SCH (08:39)
[2022-07-26] MEDS: lisINopril 10 MG (PRINIVIL) TABLET PO SCH (08:40)
[2022-07-26] MEDS: FUROSEMIDE 40 MG (LASIX) TAB PO SCH (08:40)
[2022-07-26] MEDS ORDERED: lisINopril 40 MG (PRINIVIL) TABLET PO SCH (09:00)
[2022-07-26] MEDS ORDERED: RIVA20TA2 PO (10:26)
[2022-07-26] MEDS ORDERED: METO50TA15 PO (10:26)
[2022-07-26] MEDS ORDERED: FURO40TA4 PO (10:26)
[2022-07-26] MEDS ORDERED: LORA10TA7 PO (10:26)
[2022-07-26] MEDS ORDERED: LOSA25TA41 PO (10:26)
[2022-07-26] MEDS ORDERED: FERR325T18 PO (10:26)
--- NOTE | 2022-07-26 10:46 | Physical Therapy Evaluation ---
PT Evaluation-General Medical Diagnosis Admission Date Jul 25, 2022 at 15:23 Medical Diagnosis: fall/generalized weakness Onset Date: Jul 25, 2022 Therapy Diagnosis Therapy Diagnosis: generalized weakness/impaired mobility Precautions Precautions/Isolations: Fall Prevention, Standard Precautions Weight Bear Status Right Lower Extremity: Right Weight Bearing/Tolerated Left Lower Extremity: Left Weight Bearing/Tolerated Referral Physician: Tim Reason for Referral: Evaluation/Treatment Medical History Pertinent Medical History: Atrial Fib, Dementia, Heart Failure, HTN, Renal Insufficiency Current History EMS secondary to son found patient on the floor after being there for several hours. Reviewed History: Yes Social History Home: Single Level Current Living Status: Alone Entry Into Home: Level Entry Prior Prior Level of Function SCALE: Activities may be completed with or without assistive devices. 9-Yyvefuuonl-vfwjhcz completes the activity by him/herself with no assistance from a helper. 5-Set-up or Clean-up Assistance-helper sets up or cleans up; patient completes activity. [place] assists only prior to or following the activity. 4-Supervision or Touching Assistance-helper provides verbal cues and/or touching/steadying and/or contact guard assistance as patient completes activity. Assistance may be provided throughout the activity or intermittently. 3-Partial/Moderate Assistance-helper does LESS THAN HALF the effort. [place] lifts, holds or supports trunk or limbs, but provides less than half the effort. 2-Substantial/Maximal Assistance-helper does MORE THAN HALF the effort. [place] lifts or holds trunk or limbs and provides more than half the effort. 2-Kasffitqk-fhbdyr does ALL the effort. Patient does none of the effort to complete the activity. Or, the assistance of 2 or more helpers is required for the patient to complete the activity. If activity was not attempted, code reason: 7-Patient Refused. 9-Not Applicable-not attempted and the patient did not perform the activity before the current illness, exacerbation or injury. 10-Not Attempted due to Environmental Limitations-(lack of equipment, weather restraints, etc.). 88-Not Attempted due to Medical Conditions or Safety Concerns. Bed Mobility: 6 Transfers (B,C,W/C): 6 Gait: 6 Indoor Mobility (Ambulation): Independent Prior Devices Use: Walker per patient PT Evaluation-Current Subjective Patient agrees to PT. Pain Numeric Pain Scale: 7 Location: Lower Location Body Site: Back Pain Description: Acute Objective Patient Orientation: Person, Time, Situation ROM/Strength ROM Lower Extremities bilateral LE WFL Strength Lower Extremities 3/5 grossly bilateral LE all planes Integumentary/Posture Integumentary refer to nursing notes Bowel Incontinence: No Bladder Incontinence: Yes Posture trunk flexed posture Neuromuscular (Tone, Coordination, Reflexes) grossly intact Sensory Vision: cateracts Hearing: Functional Transfers Lying to Sitting/Side of Bed(Q: 3 Sit to Stand (QC): 3 Chair/Lys-wl-Bzifx Xfer(QC): 3 Toilet Transfer (QC): 3 Gait Mode of Locomotion: Walk Anticipated Mode of Locomotion: Walk Walk 10 feet (QC): 3 Walk 50 ft with 2 Turns(QC): 3 Walk 150 ft (QC): 88 Distance: 125' Gait Assistive Device: FWW Comments/Gait Description slow steady gait sequence with 2 standing recovery periods due to fatigue Balance Sitting Static: Fair Sitting Dynamic: Fair Standing Static: Fair Standing Dynamic: Fair Assessment/Needs Patient will benefit from skilled PT to address functional strength and mobility to improve current LOF. Patient demonstrates difficulty with motor planning and completing tasks. Rehab Potential: Fair PT Mcfp Goals Rn Chemical Dependency Goals PT Rn Chemical Dependency Goals Time Frame: Aug 13, 2022 Roll Left & Right (QC): 5 Sit to Lying (QC): 5 Lying-Sitting on Side/Bed(QC): 5 Sit to Stand (QC): 5 Chair/Prz-jb-Auubp Xfer(QC): 5 Toilet Transfer (QC): 5 Walk 10 feet (QC): 4 Walk 50ft with 2 Turns (QC): 4 Walk 150 ft (QC): 4 PT Plan Problem List Problem List: Activity Tolerance, Functional Strength, Safety, Balance, Gait, Transfer, Bed Mobility Treatment/Plan Treatment Plan: Continue Plan of Care Treatment Plan: Bed Mobility, Education, Functional Activity Magdiel, Functional Strength, Gait, Safety, Therapeutic Exercise, Transfers Treatment Duration: Aug 13, 2022 Frequency: 6 times per week Estimated Hrs Per Day: .25 hour per day Time Time In: 915 Time Out: 932 DATE: Jul 26, 2022 Total Billed Treatment Time: 17 Total Billed Treatment 1 visit EVModC 17 min HANS BEARD PT Jul 26, 2022 10:46
[2022-07-26 12:31] VITALS: BP 101/54
--- NOTE | 2022-07-26 12:40 | Occupational Therapy Eval ---
OT Evaluation-General/PLF Medical Diagnosis Admission Date Jul 25, 2022 at 15:23 Medical Diagnosis: fall/generalized weakness Onset Date: Jul 25, 2022 Therapy Diagnosis Therapy Diagnosis: weakness Precautions Precautions/Isolations: Fall Prevention, Standard Precautions Referral Physician: Tim Medical History Pertinent Medical History: Atrial Fib, Dementia, Heart Failure, HTN, Renal Insufficiency Additional Medical History BILATERAL FOOT/KNEE, RIGHT NEPHRECTOMY, HYSTERECTOMY, CHF, DEMENTIA, HLD, HTN, Current History Patient fell at home, lives alone, Son left few hours earlier and son found patient down on floor when arrived in AM. Patient reports she has Home health Social History Home: Single Level Current Living Status: Alone Entry Into Home: Level Entry home health and MOWs ADL-Prior Level of Function SCALE: Activities may be completed with or without assistive devices. 0-Zasxqeljhr-ttyvvce completes the activity by him/herself with no assistance from a helper. 5-Set-up or Clean-up Assistance-helper sets up or cleans up; patient completes activity. [place] assists only prior to or following the activity. 4-Supervision or Touching Assistance-helper provides verbal cues and/or touching/steadying and/or contact guard assistance as patient completes activity. Assistance may be provided throughout the activity or intermittently. 3-Partial/Moderate Assistance-helper does LESS THAN HALF the effort. [place] lifts, holds or supports trunk or limbs, but provides less than half the effort. 2-Substantial/Maximal Assistance-helper does MORE THAN HALF the effort. [place] lifts or holds trunk or limbs and provides more than half the effort. 9-Yczcvhlhs-slkhnh does ALL the effort. Patient does none of the effort to complete the activity. Or, the assistance of 2 or more helpers is required for the patient to complete the activity. If activity was not attempted, code reason: 7-Patient Refused. 9-Not Applicable-not attempted and the patient did not perform the activity before the current illness, exacerbation or injury. 10-Not Attempted due to Environmental Limitations-(lack of equipment, weather restraints, etc.). 88-Not Attempted due to Medical Conditions or Safety Concerns. Self Care: Independent (per patient reports) Functional Cognition: Independent Drive Self: No OT Current Status Subjective Patient requires assistance with changing brief, agrees to OT Mental Status/Objective Patient Orientation: Person, Confused, Place, Situation Current Upper Extremity ROM ROM limited d/t excessive soft tissue preventing approximation Upper Extremity Coordination Motor planning and processing vs coordination Upper Extremity Strength +3/5 ADL-Treatment Eating (QC): 6 Oral Hygiene (QC): 5 Shower/Bathe Self (QC): 7 Upper Body Dressing (QC): 4 Lower Body Dressing (QC): 3 On/Off Footwear (QC): 3 Toileting Hygiene (QC): 3 Patient is urine incont, requires 10 minutes to complete donning large disposable pull up brief. Patient lacks problem solving and safety skills to perform tasks independently Education OT Patient Education: Correct positioning, Modified ADL techniques, Progress toward Goal/Update tx plan, Purpose of tx/functional activities, Reviewed precautions, Rehab process, Safety issues, Transfer techniques, Use of adapted equipment Teaching Recipient: Patient Teaching Methods: Demonstration Response to Teaching: Reinforcement Needed OT Shelter Goals Dispute Coordinator Goals Eating (QC): 6 Oral Hygiene (QC): 6 Toileting Hygiene (QC): 6 Shower/Bathe Self (QC): 6 Upper Body Dressing (QC): 6 Lower Body Dressing (QC): 6 On/Off Footwear (QC): 6 1=Demonstrate adherence to instructed precautions during ADL tasks. 2=Patient will verbalize/demonstrate understanding of assistive devices/modifications for ADL. 3=Patient will improve strength/tolerance for activity to enable patient to p erform ADL's. OT Education/Plan Problem List/Assessment Assessment: Decreased Activ Tolerance, Decreased Safety Aware, Impaired Cognition, Impaired Coordination, Impaired Self-Care Skills Discharge Recommendations Plan/Recommendations: Continue POC Therapy Discharge Recommendati: Post Acute OT Treatment Plan/Plan of Care Treatment,Training & Education: Yes Patient would benefit from OT for education, treatment and training to promote independence in ADL's, mobility, safety and/or upper extremity function for ADL's. Plan of Care: ADL Retraining, Concurrent Therapy, Functional Mobility, Group Exercise/Act as Ind Treatment Duration: Jul 30, 2022 Frequency: 3 times per week (3-5 times) Agreement: Yes Rehab Potential: Fair Time Start Time: 09:19 Stop Time: 09:38 DATE: Jul 26, 2022 Total Time Billed (hr/min): 19 Billed Treatment Time EVM 19 min EDGARD DEO OT Jul 26, 2022 12:39
--- NOTE | 2022-07-26 14:59 | History & Physical-Hospitalist ---
History of Present Illness HPI/Chief Complaint Amara Padgett is an 81 year old female with PMH HTN, T2DM, AFib, CKD 3b, obesity, who presented after a fall. She denies feeling lightheaded or dizzy. She denies syncope. She uses a walker. She was using the walker during the event. She denies hitting her head. She reports back pain. She denies chest pain. She denies shortness of breath. She denies abdominal pain. She reports that she was able to walk with physical therapy. She has no other complaints. Source: patient Exam Limitations: no limitations Date Seen 07/26/22 Time Seen by a Provider: 10:10 Attending Physician Tommy Osullivan MD PCP Admitting Physician: Nerissa Stovall MD Attending Physician: Nerissa Stovall MD Referring Physician Date of Admission Jul 25, 2022 at 15:23 Home Medications & Allergies Home Medications Reviewed patient Home Medication Reconciliation performed by pharmacy medication reconciliations automotive drivability technician and/or nursing. Patients Allergies have been reviewed. Allergies Allergies Coded Allergies Penicillins (Verified Allergy, Unknown, 05/27/22) Past Fbyxhsb-Iybxaq-Okytlv Hx Patient Social History Tobacco Use?: No Smoking Status: Never a Smoker Substance use?: No Alcohol Use?: No Pt feels they are or have been: No Immunizations Up To Date First/Initial COVID19 Vaccinat: NO Tetanus Booster (TDap): Unknown Hepatitis A: No Hepatitis B: No Current Status Advance Directives: Yes Advance Directive Location: Copy placed in chart Communicates: Verbally Primary Language: Irish Preferred Spoken Language: Irish Is interpretation needed?: No Sensory deficits: Vision impairment Implanted or Applied Medical D: Orthopedic hardware Past Medical History Surgeries: Hysterectomy, Nephrectomy Chronic Edema/Swelling, Irregular Heartbeat Dementia Renal Failure Family Medical History No Pertinent Family Hx Review of Systems Constitutional: weakness Respiratory: no symptoms reported Cardiovascular: no symptoms reported Gastrointestinal: no symptoms reported Physical Exam Physical Exam Vital Signs Vital Signs - First Documented 07/25/22 07/25/22 10:16 15:17 Temp 35.2 Pulse 76 Resp 18 B/P (MAP) 136/77 (96) Pulse Ox 95 O2 Delivery Room Air Capillary Refill : Less Than 3 Seconds Height, Weight, BMI Height: '" Weight: lbs. oz. kg; 38.13 BMI Method: General Appearance: No Apparent Distress, Obese Neck: Normal Inspection, Supple Respiratory: No Accessory Muscle Use, No Respiratory Distress, Decreased Breath Sounds Cardiovascular: Regular Rate, Rhythm, Systolic Murmur Gastrointestinal: Normal Bowel Sounds, Non Tender, Soft Extremity: No Inflammation; Pedal Edema, Swelling Neurologic/Psychiatric: Alert, No Motor/Sensory Deficits, Normal Mood/Affect Skin: Warm/Dry, Ecchymosis Results Results/Procedures Labs Laboratory Tests 07/25/22 11:18 07/26/22 04:57 Patient resulted labs reviewed. Imaging: Reviewed Imaging Report Assessment/Plan Admission Diagnosis Fall Admission Status: Observation Assessment and Plan Fall Debility Imaging evaluation without acute injuries PT/OT IRU evaluation Social work consulted HTN T2DM AFib CKD 3b Obesity Thrombocytopenia Continue home meds Diagnosis/Problems Diagnosis/Problems (1) Fall Status: Acute Qualifiers: Encounter type: initial encounter Qualified Codes: W19.XXXA - Unspecified fall, initial encounter (2) Debility Status: Acute (3) Essential (primary) hypertension Status: Chronic (4) T2DM (type 2 diabetes mellitus) Status: Chronic (5) Atrial fibrillation Status: Chronic (6) Thrombocytopenia Status: Chronic (7) CKD (chronic kidney disease) Status: Chronic Qualifiers: Chronic kidney disease stage: stage 3 (moderate) Chronic kidney disease stage 3 subtype: stage 3b (GFR 30-44) Qualified Codes: N18.32 - Chronic kidney disease, stage 3b (8) Obesity Status: Chronic NERISSA STOVALL MD Jul 26, 2022 14:59
[2022-07-26 15:28] VITALS: BP 111/53
[2022-07-26 19:32] VITALS: BP 98/51
[2022-07-26 23:52] VITALS: BP 113/57
[2022-07-27 03:27] VITALS: BP 96/53
[2022-07-27 05:34] LABS: BASOPHILS # (AUTO) 0.1 10^3/uL (0.0-0.1); BASOPHILS % (AUTO) 1 % (0-10); MONOCYTES # (AUTO) 0.9 10^3/uL (0.0-1.0)
[2022-07-27 05:36] LABS: EOSINOPHILS # (AUTO) 0.6 10^3/uL (0.0-0.3); EOSINOPHILS % (AUTO) 6 % (0-10); HEMATOCRIT 30 % (35-52); HEMOGLOBIN 9.9 g/dL (11.5-16.0); LYMPHOCYTES # (AUTO) 1.5 10^3/uL (1.0-4.0); LYMPHOCYTES % (AUTO) 14 % (12-44); MEAN CORPUSCULAR HEMOGLOBIN 31 pg (25-34); MEAN CORPUSCULAR HGB CONC 33 g/dL (32-36); MEAN CORPUSCULAR VOLUME 93 fL (80-99); MEAN PLATELET VOLUME 10.5 fL (9.0-12.2); MONOCYTES % (AUTO) 9 % (0-12); NEUTROPHILS # (AUTO) 7.7 10^3/uL (1.8-7.8); NEUTROPHILS % (AUTO) 71 % (42-75); PLATELET COUNT 120 10^3/uL (130-400); WHITE BLOOD COUNT 10.8 10^3/uL (4.3-11.0)
[2022-07-27 05:48] LABS: POTASSIUM 3.8 MMOL/L (3.6-5.0)
[2022-07-27 05:50] LABS: CALCIUM 8.5 MG/DL (8.5-10.1)
[2022-07-27 05:54] LABS: CREATININE SERUM 1.94 MG/DL (0.60-1.30)
[2022-07-27 07:25] VITALS: BP 110/71
[2022-07-27] MEDS: SENNOSIDES 8.6 MG (SENOKOT) TAB PO SCH (07:57)
[2022-07-27] MEDS: meTOprolol TARTRATE 25 MG (LOPRESSOR) TABLET PO SCH (07:57)
[2022-07-27] MEDS: ALLOPURINOL 100 MG (ZYLOPRIM) TAB PO SCH (07:58)
[2022-07-27] MEDS: lisINopril 10 MG (PRINIVIL) TABLET PO SCH (07:58)
[2022-07-27] MEDS: FUROSEMIDE 40 MG (LASIX) TAB PO SCH (07:58)
[2022-07-27] MEDS: MEMANTINE 5 MG (NAMENDA) TABLET PO SCH (07:58)
[2022-07-27] MEDS: APIXABAN 2.5 MG (ELIQUIS) TABLET PO SCH (07:58)
[2022-07-27] MEDS: DOCUSATE SODIUM 100 MG (COLACE) CAP PO SCH (07:58)
--- NOTE | 2022-07-27 09:56 | Physical Therapy Daily Note ---
PT Daily Note-Current Subjective Patient lying supine in bed upon PT arrival, agreeable to treatment. Patient rates pain at 0/10. Pain Section J - Health Conditions 1. Rarely or not at all 2. Occasionally 3. Frequently 4. Almost constantly 8. Unable to answer Pain Effect on Sleep: 1 Pain Interference with Therapy: 1 Pain Interference w/Day-to-Day: 1 Mental Status Patient Orientation: Person Transfers SCALE: Activities may be completed with or without assistive devices. 0-Jefgxnfjjg-ympsdqh completes the activity by him/herself with no assistance from a helper. 5-Set-up or Clean-up Assistance-helper sets up or cleans up; patient completes activity. [place] assists only prior to or following the activity. 4-Supervision or Touching Assistance-helper provides verbal cues and/or touching/steadying and/or contact guard assistance as patient completes activity. Assistance may be provided throughout the activity or intermittently. 3-Partial/Moderate Assistance-helper does LESS THAN HALF the effort. [place] lifts, holds or supports trunk or limbs, but provides less than half the effort. 2-Substantial/Maximal Assistance-helper does MORE THAN HALF the effort. [place] lifts or holds trunk or limbs and provides more than half the effort. 7-Dcmbldjip-ozijbt does ALL the effort. Patient does none of the effort to complete the activity. Or, the assistance of 2 or more helpers is required for the patient to complete the activity. If activity was not attempted, code reason: 7-Patient Refused. 9-Not Applicable-not attempted and the patient did not perform the activity before the current illness, exacerbation or injury. 10-Not Attempted due to Environmental Limitations-(lack of equipment, weather restraints, etc.). 88-Not Attempted due to Medical Conditions or Safety Concerns. Roll Left & Right (QC): 4 Sit to Lying (QC): 4 Lying to Sitting/Side of Bed(Q: 4 Sit to Stand (QC): 4 Chair/Ovj-cq-Rkwkz Xfer(QC): 4 Weight Bearing Right Lower Extremity: Right Weight Bearing/Tolerated Left Lower Extremity: Left Weight Bearing/Tolerated Gait Training Does the Patient Walk?: Yes Distance: 220' Walk 10 feet (QC): 4 Walk 50 ft with 2 Turns(QC): 4 Walk 150 ft (QC): 4 Gait Persons Needed: 1 Gait Assistive Device: FWW Assessment Current Status: Good Progress Patient tolerated treatment well. Performs all bed mobility and transfers with SBA. Patient ambulates 220' with FWW, with SBA and verbal cues for safety, posture and conservation of energy. Patient in chair post treatment with all needs met, nursing notified, call light in hand. PT Detention Goals Detention Goals PT Detention Goals Time Frame: Aug 13, 2022 Roll Left & Right (QC): 5 Sit to Lying (QC): 5 Lying-Sitting on Side/Bed(QC): 5 Sit to Stand (QC): 5 Chair/Umr-fp-Dufsr Xfer(QC): 5 Toilet Transfer (QC): 5 Walk 10 feet (QC): 4 Walk 50ft with 2 Turns (QC): 4 Walk 150 ft (QC): 4 PT Plan Treatment/Plan Treatment Plan: Continue Plan of Care Treatment Plan: Bed Mobility, Education, Functional Activity Magdiel, Functional Strength, Gait, Safety, Therapeutic Exercise, Transfers Treatment Duration: Aug 13, 2022 Frequency: 6 times per week Estimated Hrs Per Day: .25 hour per day Safety Risks/Education Patient Education: Gait Training, Transfer Techniques Teaching Recipient: Patient Teaching Methods: Demonstration, Discussion Response to Teaching: Verbalize Understanding, Return Demonstration Time Time In: 910 Time Out: 922 DATE: Jul 27, 2022 Total Billed Treatment Time: 12 Total Billed Treatment Visit, MINOO Martinez PT Jul 27, 2022 09:56
--- NOTE | 2022-07-27 10:39 | Discharge Summary ---
Discharge Summary Reconcile Patient Problems Problems Reviewed?: Yes Instructions for Patient [employer], Assessment/Instructions See instructions Physician to follow Patient: Shi Discharge Diet for Home: ADA Diet Hospital Course Date of Admission: Jul 25, 2022 at 15:23 Admission Diagnosis : Fall Family Physician/Provider: Tommy Osullivan MD Date of Discharge: 07/27/22 Discharge Diagnosis: Debility, fall Hospital Course: Amara Padgett is an 81 year old female with PMH HTN, T2DM, CKD, AFib, obesity, thrombocytopenia, who presented after a fall and was admitted with debility. Her trauma workup was negative. She had no signs or symptoms of an acute infection. Her thrombocytopenia and chronic kidney disease were at her baseline. She worked with physical and occupational therapy and did well. She was set up with home health care. She was discharged home in improved condition. She should follow up with Dr. Osullivan in about a week. Labs and Pending Lab Test: Laboratory Tests 07/27/22 05:11: White Blood Count 10.8, Red Blood Count 3.21L, Hemoglobin 9.9L, Hematocrit 30L, Mean Corpuscular Volume 93, Mean Corpuscular Hemoglobin 31, Mean Corpuscular Hemoglobin Concent 33, Red Cell Distribution Width 16.7H, Platelet Count 120L, Mean Platelet Volume 10.5, Immature Granulocyte % (Auto) 1, Neutrophils (%) (Auto) 71, Lymphocytes (%) (Auto) 14, Monocytes (%) (Auto) 9, Eosinophils (%) (Auto) 6, Basophils (%) (Auto) 1, Neutrophils # (Auto) 7.7, Lymphocytes # (Auto) 1.5, Monocytes # (Auto) 0.9, Eosinophils # (Auto) 0.6H, Basophils # (Auto) 0.1, Immature Granulocyte # (Auto) 0.1, Percent Immature Platelet Fraction 2.3, Sodium Level 139, Potassium Level 3.8, Chloride Level 105, Carbon Dioxide Level 25, Anion Gap 9, Blood Urea Nitrogen 53H, Creatinine 1.94H, Estimat Glomerular Filtration Rate 26, BUN/Creatinine Ratio 27, Glucose Level 98, Calcium Level 8.5 Microbiology 07/25/22 Urine Culture - Final, Complete NO GROWTH Home Meds Active Reported Ferrous Sulfate 325 Mg (65 Mg Iron) Tablet 325 Mg PO 1800 Xarelto Tablet (Rivaroxaban) 20 Mg Tablet 20 Mg PO 1800 Losartan Potassium 25 Mg Tablet 25 Mg PO 1800 Metoprolol Tartrate 50 Mg Tablet 25 Mg PO BID TAKES OF A 50MG Furosemide 40 Mg Tablet 40 Mg PO DAILY Loratadine 10 Mg Tablet 10 Mg PO DAILY Magnesium (Magnesium Oxide) 250 Mg Tablet 250 Mg PO DAILY Potassium Chloride 10 Meq Tab.er.prt 10 Meq PO DAILY LAST FILLED 03-24-2022 #30/30 DAY SUPPLY Ferrous Sulfate 325 Mg (65 Mg Iron) Tablet 650 Mg PO DAILY TAKES 2 (325MG) TABS Atorvastatin Calcium 40 Mg Tablet 40 Mg PO 1800 Memantine HCl 10 Mg Tablet 10 Mg PO BID Allopurinol 100 Mg Tablet 100 Mg PO DAILY Patient Allergies: Coded Allergies: Penicillins (Verified Allergy, Unknown, 05/27/22) Home Health Need/Face to Face Date of Face to Face: Jul 27, 2022 Clinical Findings: Generalized weakness and fatigue, Instability, Muscle weakness, Unsteady gait I have seen Pt jrea-hv-ehmw: Yes Discharged To: Home Diagnosis/Conditions: Debility HTN T2DM CKD AFib Obesity Problems/Diagnosis/Condition: (1) Debility (2) Essential (primary) hypertension (3) T2DM (type 2 diabetes mellitus) (4) CKD (chronic kidney disease) (5) Atrial fibrillation (6) Thrombocytopenia (7) Obesity Patient is Homebound due to: Amy fall risk due to instabilty, Muscle weakness Homebound Status Due to the above stated illness, injury or surgical procedure (medical condition or diagnosis) and associated clinical findings, the patient is homebound because of his/her inability to leave home except with aid of a supportive device and/or person AND leaving the home requires a considerable and taxing effort or is medically contraindicated. Pt req the following assistanc: Aid of another person, Walker Home Health Nursing Orders Home Health Services Order: Nursing Services, Bottle Feeder-Evaluate & Treat, Physical Therapy-Evaluate & Treat Home Health Infusion Therapy Line Start Date: Jul 25, 2022 Therapy Orders Therapy Orders: OT (must have SN or PT order), Physical Therapy Therapy Specific Orders: Eval assistive deivces, Teach enviro modifications/safety, Gait training, Increase strength/endurance Certify Stmt I certify that this patient is under my care and that I, a nurse practitioner or a physician; a instructional assistant working with me, had a face to face encounter that - meets the physician face to face encounter requirements with this patient as dated. Discharge Physical Exam General: Alert, Oriented X3, Cooperative, No Acute Distress, Other (obese) Lungs: Clear to Auscultation, Normal Air Movement Heart: Regular Rate, Other (systolic murmur) Abdomen: Normal Bowel Sounds, Soft, No Tenderness Extremities: Other (pedal edema) Neuro: Normal Speech, Normal Tone Psych/Mental Status: Mental Status NL, Mood NL VANDANA STOVALL MD Jul 27, 2022 10:39
[2022-07-27 11:20] VITALS: BP 93/55
[2022-07-27 15:28] VITALS: BP 93/55
== END 2022-07-27 10:34 | disposition home health service (06) ==
LOC: EDUNIT# 10:14 → ER 10:15 → UNDOADMOB 15:23 → 4TH 15:23 → UNDODISOB 07-27 10:34
PROVIDERS: ADMIT Internal Medicine; ATTEND Internal Medicine
DX: R53.81 Other malaise (principal); E66.9 Obesity, unspecified; S09.90XA Unspecified injury of head, initial encounter; D69.6 Thrombocytopenia, unspecified; I13.0 Hypertensive heart and chronic kidney disease with heart failure and stage 1 through stage 4 chronic kidney disease, or unspecified chronic kidney disease; N18.32 Chronic kidney disease, stage 3b; E11.22 Type 2 diabetes mellitus with diabetic chronic kidney disease; I48.91 Unspecified atrial fibrillation; W19.XXXA Unspecified fall, initial encounter; W18.30XA Fall on same level, unspecified, initial encounter; Z28.310 Unvaccinated for COVID-19; Z79.899 Other long term (current) drug therapy; Z68.38 Body mass index [BMI] 38.0-38.9, adult
CPT/HCPCS: 36415; 51701; 70450; 70486; 71045; 72125; 72128; 72131; 80048; 80053; 81000; 82550; 83735; 85007; 85025; 85027; 87088; 93005; 93041; G0378

== ENCOUNTER 2022-08-05 18:45 | Inpatient (IN) | payer MEDICARE, BC ==
[~2022-08-05] VITALS: Ht 157.4 cm; Wt 87.5 kg
[~2022-08-05 18:45] MED LIST changes: +LORA10TA7 PO; +LOSA25TA41 PO; +RIVA20TA2 PO
[2022-08-05] MEDS ORDERED: LACTATED RINGERS 1,000 ML IV ONE (19:00)
[2022-08-05] MEDS ORDERED: LIDOCAINE UROJET 2% GEL 10 ML PKG TOP ONE (19:00)
[2022-08-05 19:17] LABS: BASOPHILS # (AUTO) 0.1 10^3/uL (0.0-0.1); BASOPHILS % (AUTO) 1 % (0-10); EOSINOPHILS # (AUTO) 0.5 10^3/uL (0.0-0.3); EOSINOPHILS % (AUTO) 6 % (0-10); HEMATOCRIT 32 % (35-52); HEMOGLOBIN 10.5 g/dL (11.5-16.0); LYMPHOCYTES # (AUTO) 1.3 10^3/uL (1.0-4.0); LYMPHOCYTES % (AUTO) 14 % (12-44); MEAN CORPUSCULAR HEMOGLOBIN 31 pg (25-34); MEAN CORPUSCULAR HGB CONC 33 g/dL (32-36); MEAN CORPUSCULAR VOLUME 94 fL (80-99); MEAN PLATELET VOLUME 9.4 fL (9.0-12.2); MONOCYTES # (AUTO) 0.5 10^3/uL (0.0-1.0); MONOCYTES % (AUTO) 5 % (0-12); NEUTROPHILS # (AUTO) 6.5 10^3/uL (1.8-7.8); NEUTROPHILS % (AUTO) 74 % (42-75); PLATELET COUNT 191 10^3/uL (130-400); WHITE BLOOD COUNT 8.7 10^3/uL (4.3-11.0)
[2022-08-05 19:27] LABS: INR 2.1 (0.8-1.4); PROTHROMBIN TIME PATIENT 23.2 SEC (12.2-14.7)
--- NOTE | 2022-08-05 19:27 | ED General ---
General Chief Complaint: Trauma EMS/Air Arrival Activat Stated Complaint: FALL Nursing Triage Note: PT ARRIVED VIA [facility] EMS WITH C/O OF A FALL. PT WAS ON THE FLOOR IN THE LIVING WHEN FOUND. PT WAS POSSIBLY ON THE FLOOR SINCE 1130AM TODAY. EMS REPORTED THAT SHE HAS BEEN LEGTHARGIC X1 WK. PT IS ON BLOOD THINNER. UNKNOWN LOC. Source of Information: Patient (LIMITED HISTORIAN, POOR MEMORY) History of Present Illness Date Seen by Provider: Aug 05, 2022 Time Seen by Provider: 18:50 Initial Comments PT ARRIVES VIA EMS FROM HOME PT WAS FOUND ON THE FLOOR BY HER SON JUST PRIOR TO ARRIVAL PT WAS LAYING ON HER SIDE IN FRONT OF HER LIFT CHAIR THE EPISODE WAS NOT WITNESSED. PT WAS LAST SEEN AT 11:30 THIS AM, WHEN IN HOME PHYSICAL THERAPIST WAS THERE PT LIVES ALONE IN AN APARTMENT PT IS NOT ABLE TO STATE WHAT HAPPENED, DOES STATE SHE FELL, BUT CANNOT STATE WHAT HAPPENED SHE FIRST STATES THAT SHE WAS IN THE BATHROOM. LATER SHE STATES THAT SHE WAS IN THE LIVING ROOM SHE HAS NO IDEA HOW LONG AGO THIS HAPPENED AND IS DISORIENTED TO TIME. SHE DOES C/O NECK PAIN ON ARRIVAL. CERVICAL COLLAR IMMEDIATELY PLACED. WAS REPORTED TO EMS THAT PT HAS BEEN WEAK AND LETHARGIC FOR THE LAST WEEK NO OTHER INFORMATION IS KNOWN AT THIS TIME, THERE IS NO FAMILY HERE AND NO ONE HAS CALLED ABOUT HER AT THIS TIME. SON DOES ARRIVE LATER AND PROVIDES ADDITIONAL INFORMATION PT DOES HAVE HISTORY OF DEMENTIA SHE HAS CHRONIC ATRIAL FIBRILLATION AND IS ON XARELTO PCP: HERMILO ASENCIO Allergies and Home Medications Allergies Coded Allergies: Penicillins (Verified Allergy, Unknown, 05/27/22) Patient Home Medication List Allopurinol (Allopurinol) 100 Mg Tablet, 100 MG PO DAILY, (Reported) Entered as Reported by: DEVI SILVA on 05/27/222154 Atorvastatin Calcium (Atorvastatin Calcium) 40 Mg Tablet, 40 MG PO 1800, (Reported) Entered as Reported by: JERALD RAMAN on 05/30/22 1456 Ferrous Sulfate (Ferrous Sulfate) 325 Mg (65 Mg Iron) Tablet, 650 MG PO DAILY, (Reported) Entered as Reported by: JERALD RAMAN on 05/30/22 1457 Ferrous Sulfate (Ferrous Sulfate) 325 Mg (65 Mg Iron) Tablet, 325 MG PO 1800, (Reported) Entered as Reported by: DAV SAM on 07/26/22 1026 Furosemide (Furosemide) 40 Mg Tablet, 40 MG PO DAILY, (Reported) Entered as Reported by: DAV SAM on 07/26/22 1026 Loratadine (Loratadine) 10 Mg Tablet, 10 MG PO DAILY, (Reported) Entered as Reported by: DAV SAM on 07/26/22 1026 Losartan Potassium (Losartan Potassium) 25 Mg Tablet, 25 MG PO 1800, (Reported) Entered as Reported by: DAV SAM on 07/26/22 1026 Magnesium Oxide (Magnesium) 250 Mg Tablet, 250 MG PO DAILY, (Reported) Entered as Reported by: JERALD RAMAN on 05/30/22 1501 Memantine HCl (Memantine HCl) 10 Mg Tablet, 10 MG PO BID, (Reported) Entered as Reported by: JERALD RAMAN on 05/30/22 1456 Metoprolol Tartrate (Metoprolol Tartrate) 50 Mg Tablet, 25 MG PO BID, (Reported) Entered as Reported by: DAV SAM on 07/26/22 1026 Potassium Chloride (Potassium Chloride) 10 Meq Tab.er.prt, 10 MEQ PO DAILY, (Reported) Entered as Reported by: JERALD RAMAN on 05/30/22 1500 Rivaroxaban (Xarelto Tablet) 20 Mg Tablet, 20 MG PO 1800, (Reported) Entered as Reported by: DAV SAM on 07/26/22 1026 Past Jsekywr-Pzleih-Qtemby Hx Patient Social History Tobacco Use?: No Substance use?: No Alcohol Use?: No Immunizations Up To Date First/Initial COVID19 Vaccinat: NO Second COVID19 Vaccination Suleiman: NO Third COVID19 Vaccination Date: NO Past Medical History Surgery/Hospitalization HX: BILATERAL FOOT/KNEE, RIGHT NEPHRECTOMY, HYSTERECTOMY, CHF, DEMENTIA, HLD, HTN, Surgeries: Yes Appendectomy, Hysterectomy, Nephrectomy Respiratory: No Cardiac: Yes (CHF) Atrial Fibrillation, Chronic Edema/Swelling, Irregular Heartbeat Neurological: Yes Dementia, Stroke Genitourinary: Yes (single kidney) Renal Failure Gastrointestinal: No Musculoskeletal: Yes Family Medical History No Pertinent Family Hx Physical Exam Vital Signs Vital Signs - First Documented 08/05/22 18:52 Pulse 90 B/P (MAP) 132/71 (91) Pulse Ox 93 O2 Delivery Room Air Capillary Refill : Height, Weight, BMI Height: '" Weight: lbs. oz. kg; 36.00 BMI Method: Progress/Results/Core Measures Suspected Sepsis SIRS Temperature: Pulse: 90 Respiratory Rate: Laboratory Tests 08/05/22 19:00: White Blood Count 8.7 Blood Pressure 132 /71 Mean: 91 Laboratory Tests 08/05/22 19:00: Creatinine 2.21H, INR Comment 2.1H, Platelet Count 191, Total Bilirubin 1.7H Results/Orders Lab Results Laboratory Tests Test 08/05/22 19:00 08/05/22 19:44 08/05/22 19:54 Range/Units White Blood Count 8.7 4.3-11.0 10^3/uL Red Blood Count 3.40 L 3.80-5.11 10^6/uL Hemoglobin 10.5 L 11.5-16.0 g/dL Hematocrit 32 L 35-52 % Mean Corpuscular Volume 94 80-99 fL Mean Corpuscular Hemoglobin 31 25-34 pg Mean Corpuscular Hemoglobin Concent 33 32-36 g/dL Red Cell Distribution Width 18.6 H 10.0-14.5 % Platelet Count 191 130-400 10^3/uL Mean Platelet Volume 9.4 9.0-12.2 fL Immature Granulocyte % (Auto) 1 % Neutrophils (%) (Auto) 74 42-75 % Lymphocytes (%) (Auto) 14 12-44 % Monocytes (%) (Auto) 5 0-12 % Eosinophils (%) (Auto) 6 0-10 % Basophils (%) (Auto) 1 0-10 % Neutrophils # (Auto) 6.5 1.8-7.8 10^3/uL Lymphocytes # (Auto) 1.3 1.0-4.0 10^3/uL Monocytes # (Auto) 0.5 0.0-1.0 10^3/uL Eosinophils # (Auto) 0.5 H 0.0-0.3 10^3/uL Basophils # (Auto) 0.1 0.0-0.1 10^3/uL Immature Granulocyte # (Auto) 0.1 0.0-0.1 10^3/uL Erythrocyte Sedimentation Rate 41 H 0-30 MM/HR Prothrombin Time 23.2 H 12.2-14.7 SEC INR Comment 2.1 H 0.8-1.4 Activated Partial Thromboplast Time 40 H 24-35 SEC Sodium Level 143 135-145 MMOL/L Potassium Level 4.1 3.6-5.0 MMOL/L Chloride Level 106 98-107 MMOL/L Carbon Dioxide Level 23 21-32 MMOL/L Anion Gap 14 5-14 MMOL/L Blood Urea Nitrogen 67 H 7-18 MG/DL Creatinine 2.21 H 0.60-1.30 MG/DL Estimat Glomerular Filtration Rate 22 BUN/Creatinine Ratio 30 Glucose Level 172 H 70-105 MG/DL Calcium Level 10.1 8.5-10.1 MG/DL Corrected Calcium 10.3 H 8.5-10.1 MG/DL Magnesium Level 2.9 H 1.6-2.4 MG/DL Total Bilirubin 1.7 H 0.1-1.0 MG/DL Aspartate Amino Transf (AST/SGOT) 37 H 5-34 U/L Alanine Aminotransferase (ALT/SGPT) 39 0-55 U/L Alkaline Phosphatase 182 H 40-136 U/L Total Creatine Kinase < 7 L 29-168 U/L Creatine Kinase MB 1.2 <6.6 NG/ML Myoglobin 158.8 H 10.0-92.0 NG/ML Troponin I < 0.028 <0.028 NG/ML C-Reactive Protein High Sensitivity 0.30 0.00-0.50 MG/DL B-Type Natriuretic Peptide 739.1 H <100.0 PG/ML Total Protein 7.3 6.4-8.2 GM/DL Albumin 3.8 3.2-4.5 GM/DL TSH Mclean Testing 1.75 0.35-4.94 UIU/ML Urine Color YELLOW Urine Clarity CLEAR Urine pH 6.5 5-9 Urine Specific [place] 1.010 L 1.016-1.022 Urine Protein NEGATIVE NEGATIVE Urine Glucose (UA) NEGATIVE NEGATIVE Urine Ketones NEGATIVE NEGATIVE Urine Nitrite POSITIVE H NEGATIVE Urine Bilirubin NEGATIVE NEGATIVE Urine Urobilinogen 0.2 < = 1.0 MG/DL Urine Leukocyte Esterase 1+ H NEGATIVE Urine RBC (Auto) TRACE-I H NEGATIVE Urine RBC 0-2 /HPF Urine WBC 0-2 /HPF Urine Squamous Epithelial Cells NONE /HPF Urine Crystals NONE /LPF Urine Bacteria MODERATE H /HPF Urine Casts NONE /LPF Urine Mucus NEGATIVE /LPF Urine Culture Indicated YES Influenza Type A (RT-PCR) Not Detected Not Detecte Influenza Type B (RT-PCR) Not Detected Not Detecte SARS-CoV-2 RNA (RT-PCR) Not Detected Not Detecte My Orders Orders - BEATRIS SANDRA DO Ed Iv/Invasive Line Start (08/05/22 18:58) Ekg Tracing (08/05/22 18:58) Catheter(Urinary) Insert & Ass 03,15 (08/05/22 18:58) O2 (08/05/22 18:58) Monitor-Rhythm Ecg Trace Only (08/05/22 18:58) Ct Head/Face/Cervical Wo (08/05/22 18:58) Chest 1 View, Ap/Pa Only (08/05/22 18:58) Pelvis 1 To 2 Views (08/05/22 18:58) Bnp Mcclain (08/05/22 18:58) Cbc With Automated Diff (08/05/22 18:58) Comprehensive Metabolic Panel (08/05/22 18:58) Creatine Kinase (08/05/22 18:58) Creatine Kinase Mb (08/05/22 18:58) Hs C Reactive Protein (08/05/22 18:58) Magnesium (08/05/22 18:58) Protime With Inr (08/05/22 18:58) Partial Thromboplastin Time (08/05/22 18:58) Thyroid Analyzer (08/05/22 18:58) Ua Culture If Indicated (08/05/22 18:58) Erythrocyte Sedimentation Rate (08/05/22 18:58) Myoglobin Serum (08/05/22 18:58) Troponin I Jennifer (08/05/22 18:58) Ed Iv/Invasive Line Start (08/05/22 18:58) Lactated Ringers (Lr 1000 Ml Iv Solution (08/05/22 19:00) Covid 19 Inhouse Test (08/05/22 18:58) Lidocaine 2% (Urojet) (Xylocaine Urojet) (08/05/22 19:00) Influenza A And B By Pcr (08/05/22 18:58) Cervical Collar (08/05/22 18:58) Elbow, Left, 3 Views (08/05/22 19:56) Dipht,Pertuss(Acell),Tet Adult (Boostrix (08/05/22 20:00) Urine Culture (08/05/22 19:44) Ceftriaxone Iv/Im (Rocephin Iv/Im) (08/05/22 20:10) Medications Given in ED Current Medications Medications Dose Ordered Sig/Jose Route Start Time Stop Time Status Last Admin Dose Admin Diphtheria/ Tetanus/Acell Pertussis 0.5 ml ONCE ONCE IM 08/05/22 20:00 08/05/22 20:01 DC 08/05/22 20:19 0.5 ML Lactated Ringer's 1,000 ml @ 0 mls/hr Q0M ONCE IV 08/05/22 19:00 08/05/22 19:01 DC 08/05/22 19:50 999 MLS/HR Vital Signs/I&O 08/05/22 18:52 Pulse 90 B/P (MAP) 132/71 (91) Pulse Ox 93 O2 Delivery Room Air Capillary Refill : Blood Pressure Mean: 91 Progress Note : Progress Note 1950--PT'S SON IS NOW HERE. Diagnostic Imaging Comments CT HEAD/MAXILLOFACIALS/CERVICAL SPINE--PER RADIOLOGIST REPORT AT 194 EXAMINATION: CT brain, CT cervical spine 08/05/2022 COMPARISON: 07/25/2022 FINDINGS: Brain: There is no hemorrhage or infarct. No mass, mass effect or midline shift. No hydrocephalus. Chronic calcifications stable. Mild chronic ischemic disease in a periventricular and deep white matter distribution unchanged. The calvarium is intact. IMPRESSION: 1. Stable findings with no acute intracranial process appreciated. CT cervical spine: Minimal grade 1 anterolisthesis noted at C4-C5. There are no new subluxations or compression deformities. Intervertebral disc space narrowing and anterior spurring as well as facet hypertrophy most pronounced at C5-C6 and C6-C7 similar to previous. Lung apices appear clear. Prevertebral soft tissues unremarkable. IMPRESSION: 1. Multilevel degenerative findings similar to previous imaging. No acute fractures identified. Reviewed: Reviewed by Me Departure Impression Primary Impression: Unwitnessed fall Additional Impressions: Generalized weakness HEAD INJURY WITH UNKNOWN LOSS OF CONSCIOUSNESS Chronic atrial fibrillation Chronic anticoagulation Dementia Departure-Patient Inst. Referrals: MARY CHAVES MD (PCP/Family) Primary Care Physician BEATRIS SANDRA DO Aug 05, 2022 19:27
[2022-08-05 19:37] LABS: ERYTHROCYTE SEDIMENTATION RATE 41 MM/HR (0-30)
--- NOTE | 2022-08-05 19:39 | Diagnostic Imaging Report ---
PROCEDURE: CT head, face, and cervical spine without contrast. TECHNIQUE: Multiple contiguous axial images were obtained through the head, neck, and facial bones without the use of intravenous contrast. Sagittal and coronal reformations through the cervical spine and facial bones were also performed. Auto Exposure Controls were utilized during the CT exam to meet ALARA standards for radiation dose reduction. INDICATION: Found down. Not felt well for the last week. On blood thinners. EXAMINATION: CT brain, CT cervical spine 08/05/2022 COMPARISON: 07/25/2022 FINDINGS: Brain: There is no hemorrhage or infarct. No mass, mass effect or midline shift. No hydrocephalus. Chronic calcifications stable. Mild chronic ischemic disease in a periventricular and deep white matter distribution unchanged. The calvarium is intact. IMPRESSION: 1. Stable findings with no acute intracranial process appreciated. CT cervical spine: Minimal grade 1 anterolisthesis noted at C4-C5. There are no new subluxations or compression deformities. Intervertebral disc space narrowing and anterior spurring as well as facet hypertrophy most pronounced at C5-C6 and C6-C7 similar to previous. Lung apices appear clear. Prevertebral soft tissues unremarkable. IMPRESSION: 1. Multilevel degenerative findings similar to previous imaging. No acute fractures identified. Dictated by: Dictated on workstation # [id number]
--- NOTE | 2022-08-05 19:40 | Diagnostic Imaging Report ---
INDICATION: Fall, pain EXAMINATION: Chest 08/05/2022 COMPARISON: 07/25/2022 FINDINGS: There is cardiomegaly. Pulmonary vasculature slightly congested. No infiltrates or effusions. No pneumothorax. IMPRESSION: 1. Cardiomegaly. Mild question pulmonary vascular congestion. Dictated by: Dictated on workstation # [id number]
[2022-08-05 19:48] LABS: ALANINE AMINOTRANSFERASE 39 U/L (0-55); ALBUMIN 3.8 GM/DL (3.2-4.5); ALKALINE PHOSPHATASE 182 U/L (40-136); BILIRUBIN,TOTAL 1.7 MG/DL (0.1-1.0); BUN/CREATININE RATIO 30; CALCIUM 10.1 MG/DL (8.5-10.1); CARBON DIOXIDE 23 MMOL/L (21-32); CHLORIDE 106 MMOL/L (98-107); CREATINE KINASE < 7 U/L (29-168); CREATININE SERUM 2.21 MG/DL (0.60-1.30); GFR ESTIMATED 22; GLUCOSE 172 MG/DL (70-105); MAGNESIUM 2.9 MG/DL (1.6-2.4); POTASSIUM 4.1 MMOL/L (3.6-5.0); SODIUM 143 MMOL/L (135-145); TOTAL PROTEIN 7.3 GM/DL (6.4-8.2)
--- NOTE | 2022-08-05 19:52 | Diagnostic Imaging Report ---
INDICATION: Fall, pain. EXAMINATION: Single view pelvis, 08/05/2022. FINDINGS: Frontal pelvis demonstrates no acute fracture or dislocation. The joint spaces appear maintained. Soft tissues are unremarkable with clips in the right lower quadrant. IMPRESSION: No acute osseous abnormality. If persistent pain or patient cannot bear weight, further imaging such as MRI recommended given mild osteopenia. Dictated by: Dictated on workstation # [id number]
[2022-08-05 19:56] LABS: BILIRUBIN,URINE NEGATIVE (NEGATIVE); CLARITY,URINE CLEAR; COLOR,URINE YELLOW; GLUCOSE, URINE (UA) NEGATIVE (NEGATIVE); KETONES,URINE NEGATIVE (NEGATIVE); LEUKOCYTE ESTERASE ,URINE 1+ (NEGATIVE); NITRITE,URINE POSITIVE (NEGATIVE); PH,URINE 6.5 (5-9); PROTEIN,URINE NEGATIVE (NEGATIVE)
[2022-08-05] MEDS ORDERED: TETANUS,DIPTH,PERTUSS P/F (BOOSTRIX) 0.5 ML VIAL IM ONE (20:00)
[2022-08-05 20:07] LABS: BACTERIA,URINE MODERATE /HPF; RBC,URINE 0-2 /HPF; WBC,URINE 0-2 /HPF
[2022-08-05 20:09] LABS: CREATINE KINASE MB 1.2 NG/ML (<6.6); TSH (THYROID ANALYZER) 1.75 UIU/ML (0.35-4.94)
[2022-08-05] MEDS ORDERED: cefTRIAXone IV/IM 1,000 MG in NS (IVPB) 50 ML IV STA (20:10)
--- NOTE | 2022-08-05 20:32 | Diagnostic Imaging Report ---
INDICATION: Fall on elbow with pain TECHNIQUE: 3 views of the left elbow CORRELATION STUDY: None FINDINGS: There is normal alignment of the osseous structures of the elbow. No acute fracture. No abnormal joint effusion. IMPRESSION: 1. Negative for acute bony abnormality of the elbow. Dictated by: Dictated on workstation # [id number]
[2022-08-05 21:44] VITALS: BP 133/64
[2022-08-05] MEDS ORDERED: fentaNYL INJ 100 MCG/2 ML AMP IV PRN (22:15)
[2022-08-05] MEDS ORDERED: ONDANSETRON 4 MG/2 ML (SDV) Z0FRAN IV PRN (22:15)
[2022-08-05] MEDS ORDERED: ACETAMINOPHEN 500 MG TAB (TYLENOL) PO PRN (22:15)
[2022-08-05] MEDS: LACTATED RINGERS 1,000 ML IV SCH (22:27)
[2022-08-05 23:55] VITALS: BP 132/62
[2022-08-06] VITALS (7 sets, daily range): BP systolic 123–137; BP diastolic 69–86
[2022-08-06 05:11] LABS: BASOPHILS # (AUTO) 0.1 10^3/uL (0.0-0.1); BASOPHILS % (AUTO) 0 % (0-10); EOSINOPHILS # (AUTO) 0.6 10^3/uL (0.0-0.3); EOSINOPHILS % (AUTO) 5 % (0-10); HEMATOCRIT 29 % (35-52); HEMOGLOBIN 9.4 g/dL (11.5-16.0); LYMPHOCYTES # (AUTO) 1.6 10^3/uL (1.0-4.0); LYMPHOCYTES % (AUTO) 13 % (12-44); MEAN CORPUSCULAR HEMOGLOBIN 31 pg (25-34); MEAN CORPUSCULAR HGB CONC 33 g/dL (32-36); MEAN CORPUSCULAR VOLUME 95 fL (80-99); MEAN PLATELET VOLUME 9.4 fL (9.0-12.2); MONOCYTES # (AUTO) 0.9 10^3/uL (0.0-1.0); MONOCYTES % (AUTO) 7 % (0-12); NEUTROPHILS # (AUTO) 8.9 10^3/uL (1.8-7.8); NEUTROPHILS % (AUTO) 74 % (42-75); PLATELET COUNT 160 10^3/uL (130-400)
[2022-08-06 05:20] LABS: ALBUMIN 3.2 GM/DL (3.2-4.5); POTASSIUM 3.8 MMOL/L (3.6-5.0)
[2022-08-06 05:21] LABS: CALCIUM 9.8 MG/DL (8.5-10.1)
[2022-08-06 05:22] LABS: TOTAL PROTEIN 5.9 GM/DL (6.4-8.2)
[2022-08-06 05:24] LABS: BILIRUBIN,TOTAL 1.1 MG/DL (0.1-1.0)
[2022-08-06 05:26] LABS: CREATININE SERUM 1.87 MG/DL (0.60-1.30)
[2022-08-06] MEDS: LACTATED RINGERS 1,000 ML IV SCH (07:58)
--- NOTE | 2022-08-06 10:06 | Physical Therapy Evaluation ---
PT Evaluation-General Medical Diagnosis Admission Date Aug 05, 2022 at 21:35 Medical Diagnosis: UTI, weakness, fall Onset Date: Aug 05, 2022 Therapy Diagnosis Therapy Diagnosis: weakness, debility Precautions Precautions/Isolations: Fall Prevention, Standard Precautions Weight Bear Status Right Lower Extremity: Right Full Weight Bearing Left Lower Extremity: Left Full Weight Bearing Referral Physician: Kareen Reason for Referral: Evaluation/Treatment Medical History Pertinent Medical History: Atrial Fib, CVA, Dementia, Heart Failure, HTN, Renal Insufficiency Current History To ER via EMS s/p fall. Reviewed History: Yes Social History Home: Single Level Current Living Status: Alone Entry Into Home: Stairs Without Railing PT Steps Into Home: 2 Prior Prior Level of Function SCALE: Activities may be completed with or without assistive devices. 6-Xylgadysli-nrbrbaw completes the activity by him/herself with no assistance from a helper. 5-Set-up or Clean-up Assistance-helper sets up or cleans up; patient completes activity. [place] assists only prior to or following the activity. 4-Supervision or Touching Assistance-helper provides verbal cues and/or touchin g/steadying and/or contact guard assistance as patient completes activity. Assistance may be provided throughout the activity or intermittently. 3-Partial/Moderate Assistance-helper does LESS THAN HALF the effort. [place] lifts, holds or supports trunk or limbs, but provides less than half the effort. 2-Substantial/Maximal Assistance-helper does MORE THAN HALF the effort. [place] lifts or holds trunk or limbs and provides more than half the effort. 1-Vqkepbyfn-vcpsce does ALL the effort. Patient does none of the effort to complete the activity. Or, the assistance of 2 or more helpers is required for the patient to complete the activity. If activity was not attempted, code reason: 7-Patient Refused. 9-Not Applicable-not attempted and the patient did not perform the activity before the current illness, exacerbation or injury. 10-Not Attempted due to Environmental Limitations-(lack of equipment, weather restraints, etc.). 88-Not Attempted due to Medical Conditions or Safety Concerns. Bed Mobility: 6 Transfers (B,C,W/C): 6 Gait: 6 Stairs: 6 Wheelchair Mobility: 9 Indoor Mobility (Ambulation): Independent Stairs: Independent Prior Devices Use: Walker PT Evaluation-Current Subjective Pt in bed, agreeable but keeps repeating, "I'm just so sleepy". Speaks without opening eyes and slow to respond. Pain Location: Right, Left Location Body Site: Shoulder Comment: At the end of eval, Pt reported shoulder pain, unable to rate Pt/Family Goals Home Objective Patient Orientation: Person, Place, Time, Situation Attachments: Melton Catheter, IV ROM/Strength ROM Upper Extremities WFL for mobility ROM Lower Extremities WFL for mobility Strength Upper Extremities WFL for mobility Strength Lower Extremities grossly 3+/5 Integumentary/Posture Integumentary See nurses' notes Bladder Incontinence: Melton Cath Sensory Vision: Functional Hearing: Functional Transfers Lying to Sitting/Side of Bed(Q: 3 (Mod a x 1) Sit to Stand (QC): 4 (min a x 1) Chair/Hxl-uo-Wdcvc Xfer(QC): 4 (Min A x 1 but max VCS for sequencing) Gait Does the Patient Walk?: Yes Mode of Locomotion: Walk Anticipated Mode of Locomotion: Walk Gait Assistive Device: FWW Comments/Gait Description 5' to chair with FWW with min A x 1 for balance but Max VCS for sequencing with walker to get to chair. Wheelchair Training Does the Pt Use a Wheelchair?: No Type of Wheelchair: N/A Balance Sitting Static: Fair Sitting Dynamic: Fair Standing Static: Fair Standing Dynamic: Fair Treatment Eval. Up in chair with alarm activated and needs met. Assessment/Needs Pt would benefit from skilled PT to improve safety and (I) with functional mobility to facilitate safe discharge. Rehab Potential: Good PT Short Term Goals Short Term Goals Time Frame: Aug 10, 2022 Roll Left & Right: 6 Sit to lyin Lying to sitting on side of be: 6 Sit to stand: 6 PT Gear Machine Operator Goals Gear Machine Operator Goals PT Residential Goals Time Frame: Aug 13, 2022 Roll Left & Right (QC): 6 Sit to Lying (QC): 6 Lying-Sitting on Side/Bed(QC): 6 Sit to Stand (QC): 6 Chair/Xjz-qp-Ldrio Xfer(QC): 6 Toilet Transfer (QC): 6 Car Transfer (QC): 4 Does the Patient Walk: Yes Walk 10 feet (QC): 6 Walk 50ft with 2 Turns (QC): 6 Walk 150 ft (QC): 6 Walking 10ft on Uneven Surface: 6 1 Step (curb) (QC): 6 4 Steps (QC): 4 12 Steps (QC): 9 Does the Pt use WC or Scooter?: No Type: N/A Type: N/A PT LTGs established to allow safe return home. PT Plan Problem List Problem List: Activity Tolerance, Functional Strength, Safety, Balance, Gait, Transfer, Bed Mobility Treatment/Plan Treatment Plan: Continue Plan of Care Treatment Plan: Bed Mobility, Education, Functional Activity Magdiel, Functional Strength, Gait, Safety, Therapeutic Exercise, Transfers Treatment Duration: Aug 13, 2022 Frequency: 6 times per week Estimated Hrs Per Day: .25 hour per day Patient and/or Family Agrees t: Yes Safety Risks/Education Patient Education: Gait Training Teaching Recipient: Patient Teaching Methods: Demonstration, Discussion Response to Teaching: Unable to Return Demonstration, Unable to Comprehend, Reinforcement Needed Time Time In: 753 Time Out: 08 DATE: Aug 06, 2022 Total Billed Treatment Time: 23 Total Billed Treatment 1, EVLOWC x 23' ADRIANO WOOTEN DPEamon Aug 06, 2022 10:06
--- NOTE | 2022-08-06 10:40 | History & Physical-Hospitalist ---
History of Present Illness HPI/Chief Complaint Amara Padgett is an 81 year old female with PMH HTN, T2DM, AFib, CKD 3b, obesity, who presented to the ER after a fall at home. Her son found her on the floor in the kitchen yesterday. She was seen by home health PT yesterday earlier in the day and was in her normal state. Her son states that she is normally quite with it but she was confused when he found her yesterday. She was unsure how she fell and did not even seem to realize that she was on the floor. He decided to take her to the emergency department for evaluation. She was found have a urinary tract infection. Trauma imaging was done which showed no acute findings. This morning she knows who she is and that she is in the hospital but she is still confused about how she got here. Source: patient Date Seen 08/06/22 Time Seen by a Provider: 10:31 Attending Physician Tommy Osullivan MD PCP Admitting Physician: Talat Mathur MD Attending Physician: Talat Mathur MD Referring Physician Date of Admission Aug 05, 2022 at 21:35 Home Medications & Allergies Home Medications Reviewed patient Home Medication Reconciliation performed by pharmacy medication reconciliations piano technician and/or nursing. Patients Allergies have been reviewed. Allergies Allergies Coded Allergies Penicillins (Verified Allergy, Unknown, 05/27/22) Past Tkywbep-Hetsru-Zgnupd Hx Patient Social History Marrital Status: Tobacco Use?: No Use of E-Cig and/or Vaping dev: No Substance use?: No Alcohol Use?: No Pt feels they are or have been: No Immunizations Up To Date First/Initial COVID19 Vaccinat: NO Second COVID19 Vaccination Suleiman: NO Tetanus Booster (TDap): Unknown Hepatitis A: No Hepatitis B: No Current Status status: No status: No Advance Directives: Unable to obtain Communicates: Verbally Primary Language: Samoan Preferred Spoken Language: Samoan Is interpretation needed?: No Sensory deficits: Vision impairment Past Medical History Surgeries: Appendectomy, Hysterectomy, Nephrectomy Atrial Fibrillation, Chronic Edema/Swelling, Irregular Heartbeat Dementia, Stroke Renal Failure Family Medical History No Pertinent Family Hx Review of Systems Constitutional: see HPI Physical Exam Physical Exam Vital Signs Vital Signs - First Documented 08/05/22 08/05/22 08/06/22 08/06/22 18:52 21:44 06:03 11:15 Temp 36.0 Pulse 90 Resp 20 B/P (MAP) 132/71 (91) Pulse Ox 93 O2 Delivery Room Air O2 Flow Rate 0.00 FiO2 21 Capillary Refill : Height, Weight, BMI Height: '" Weight: lbs. oz. kg; 35.31 BMI Method: General Appearance: No Apparent Distress, Chronically ill, Obese HEENT: PERRL/EOMI Respiratory: Lungs Clear, No Respiratory Distress Cardiovascular: No Murmur, Irregularly Irregular Gastrointestinal: Normal Bowel Sounds, Soft Neurologic/Psychiatric: Alert, Other (oriented to person and place) Results Results/Procedures Labs Laboratory Tests 08/05/22 19:00 08/06/22 05:00 08/07/22 05:27 Patient resulted labs reviewed. Imaging: Reviewed Imaging Report [facility] [place], [place] NAME: AMARA PADGETT [facility] REC#: [id number] PT STATUS: REG ER : 1940 PHYSICIAN: BEATRIS SANDRA DO ADMIT DATE: 08/05/22/ER Signed Date of Exam:08/05/22 CHEST 1 VIEW, AP/PA ONLY INDICATION: Fall, pain EXAMINATION: Chest 08/05/2022 COMPARISON: 07/25/2022 FINDINGS: There is cardiomegaly. Pulmonary vasculature slightly congested. No infiltrates or effusions. No pneumothorax. IMPRESSION: 1. Cardiomegaly. Mild question pulmonary vascular congestion. Dictated by: Dictated on workstation # [id number] Dict: 08/05/221927 Trans: 08/05/221954 [facility] [id number] Interpreted by: OCHOA ARMENTA MD Electronically signed by: OCHOA ARMENTA MD 08/05/221954 [facility] [place] [place] NAME: AMARA PADGETT [facility] REC#: [id number] PT STATUS: REG ER : 1940 PHYSICIAN: BEATRIS SANDRA DO ADMIT DATE: 08/05/22/ER Signed Date of Exam:08/05/22 CT HEAD/FACE/CERVICAL WO PROCEDURE: CT head, face, and cervical spine without contrast. TECHNIQUE: Multiple contiguous axial images were obtained through the head, neck, and facial bones without the use of intravenous contrast. Sagittal and coronal reformations through the cervical spine and facial bones were also performed. Auto Exposure Controls were utilized during the CT exam to meet ALARA standards for radiation dose reduction. INDICATION: Found down. Not felt well for the last week. On blood thinners. EXAMINATION: CT brain, CT cervical spine 08/05/2022 COMPARISON: 07/25/2022 FINDINGS: Brain: There is no hemorrhage or infarct. No mass, mass effect or midline shift. No hydrocephalus. Chronic calcifications stable. Mild chronic ischemic disease in a periventricular and deep white matter distribution unchanged. The calvarium is intact. IMPRESSION: 1. Stable findings with no acute intracranial process appreciated. CT cervical spine: Minimal grade 1 anterolisthesis noted at C4-C5. There are no new subluxations or compression deformities. Intervertebral disc space narrowing and anterior spurring as well as facet hypertrophy most pronounced at C5-C6 and C6-C7 similar to previous. Lung apices appear clear. Prevertebral soft tissues unremarkable. IMPRESSION: 1. Multilevel degenerative findings similar to previous imaging. No acute fractures identified. Dictated by: Dictated on workstation # [id number] Dict: 08/05/221915 Trans: 08/05/221946 [facility] [id number] Interpreted by: OCHOA ARMENTA MD Electronically signed by: OCHOA ARMENTA MD 08/05/221946 [facility] [place], [place] NAME: AMARA PADGETT [facility] REC#: [id number] PT STATUS: REG ER : 1940 PHYSICIAN: BEATRIS SANDRA DO ADMIT DATE: 08/05/22/ER Signed Date of Exam:08/05/22 PELVIS 1 TO 2 VIEWS INDICATION: Fall, pain. EXAMINATION: Single view pelvis, 08/05/2022. FINDINGS: Frontal pelvis demonstrates no acute fracture or dislocation. The joint spaces appear maintained. Soft tissues are unremarkable with clips in the right lower quadrant. IMPRESSION: No acute osseous abnormality. If persistent pain or patient cannot bear weight, further imaging such as MRI recommended given mild osteopenia. Dictated by: Dictated on workstation # [id number] Dict: 08/05/221925 Trans: 08/05/221954 [facility] [id number] Interpreted by: OCOHA ARMENTA MD Electronically signed by: OCHOA ARMENTA MD 08/05/221954 [facility] [place], [place] NAME: AMARA PADGETT [facility] REC#: [id number] PT STATUS: ADM IN : 1940 PHYSICIAN: BEATRIS SANDRA DO ADMIT DATE: 08/05/22 Signed Date of Exam:08/05/22 ELBOW, LEFT, 3 VIEWS INDICATION: Fall on elbow with pain TECHNIQUE: 3 views of the left elbow CORRELATION STUDY: None FINDINGS: There is normal alignment of the osseous structures of the elbow. No acute fracture. No abnormal joint effusion. IMPRESSION: 1. Negative for acute bony abnormality of the elbow. Dictated by: Dictated on workstation # [id number] Dict: 08/05/222030 Trans: 08/05/222146 DO [id number] Interpreted by: LASHA COLLIER DO Electronically signed by: LASHA COLLIER DO 08/05/222146 Assessment/Plan Admission Diagnosis UTI Admission Status: Inpatient Order (span 2 midnights) Reason for Inpatient Admission: see below Assessment and Plan UTI Continue IV abx Await cultures Does not meet sepsis criteria [place] on CKD Baseline psych sales specialist around 1.6 Improved from 2.2 to 1.87 today Trend Hold ARB Fall Debility Was admitted last week for similar Imaging evaluation without acute injuries PT/OT IRU evaluation Social work consult as may need placement HTN T2DM AFib Obesity Continue home meds as able Diagnosis/Problems Diagnosis/Problems (1) Acute on chronic renal failure (2) Chronic a-fib (3) General weakness (4) UTI (urinary tract infection) (5) Unwitnessed fall Status: Acute (6) Chronic anticoagulation Status: Acute (7) Dementia Status: Chronic (8) Obesity Status: Chronic (9) T2DM (type 2 diabetes mellitus) Status: Chronic (10) Essential (primary) hypertension Status: Chronic (11) Hospitalization or health care facility admission within last 6 months Status: Acute TALAT MATHUR MD Aug 06, 2022 10:40
[2022-08-06] MEDS ORDERED: RT-ALBUTEROL SULF 2.5 MG/3 ML PRE-MIX VIAL INH PRN (11:30)
[2022-08-06] MEDS: cefTRIAXone 1 GM/NS 50 ML IVPB IV SCH ×2 (19:44)
[2022-08-07 03:24] VITALS: BP 129/74
[2022-08-07 05:55] LABS: BASOPHILS # (AUTO) 0.1 10^3/uL (0.0-0.1); BASOPHILS % (AUTO) 1 % (0-10); EOSINOPHILS # (AUTO) 0.6 10^3/uL (0.0-0.3); EOSINOPHILS % (AUTO) 6 % (0-10); HEMATOCRIT 26 % (35-52); HEMOGLOBIN 8.6 g/dL (11.5-16.0); LYMPHOCYTES # (AUTO) 1.5 10^3/uL (1.0-4.0); LYMPHOCYTES % (AUTO) 15 % (12-44); MEAN CORPUSCULAR HEMOGLOBIN 31 pg (25-34); MEAN CORPUSCULAR HGB CONC 33 g/dL (32-36); MEAN CORPUSCULAR VOLUME 95 fL (80-99); MEAN PLATELET VOLUME 9.4 fL (9.0-12.2); MONOCYTES # (AUTO) 0.6 10^3/uL (0.0-1.0); MONOCYTES % (AUTO) 5 % (0-12); NEUTROPHILS # (AUTO) 7.6 10^3/uL (1.8-7.8); NEUTROPHILS % (AUTO) 73 % (42-75); PLATELET COUNT 151 10^3/uL (130-400); WHITE BLOOD COUNT 10.3 10^3/uL (4.3-11.0)
[2022-08-07 06:15] LABS: POTASSIUM 3.7 MMOL/L (3.6-5.0)
[2022-08-07 06:16] LABS: CALCIUM 9.3 MG/DL (8.5-10.1)
[2022-08-07 06:17] LABS: TOTAL PROTEIN 5.6 GM/DL (6.4-8.2)
[2022-08-07 06:19] LABS: BILIRUBIN,TOTAL 1.1 MG/DL (0.1-1.0)
[2022-08-07 06:21] LABS: CREATININE SERUM 1.7 MG/DL (0.60-1.30)
[2022-08-07 07:50] VITALS: BP 134/67
--- NOTE | 2022-08-07 11:29 | Progress Note - Hospitalist ---
Subjective HPI/CC On Admission Date Seen by Provider: Aug 07, 2022 Amara Padgett is an 81 year old female with PMH HTN, T2DM, AFib, CKD 3b, obesity, who presented to the ER after a fall at home. Her son found her on the floor in the kitchen yesterday. She was seen by home health PT yesterday earlier in the day and was in her normal state. Her son states that she is normally quite with it but she was confused when he found her yesterday. She was unsure how she fell and did not even seem to realize that she was on the floor. He decided to take her to the emergency department for evaluation. She was found have a urinary tract infection. Trauma imaging was done which showed no acute findings. This morning she knows who she is and that she is in the hospital but she is still confused about how she got here. Subjective/Events-last exam Pt reports doing better today but not back to baseline. No specific complaints just overall not feeling well. Objective Exam Vital Signs Vital Signs Date Time Temp Pulse Resp B/P (MAP) Pulse Ox O2 Delivery O2 Flow Rate FiO2 08/07/22 07:50 36.4 107 20 134/67 (89) 96 Room Air 08/06/22 11:15 21 08/06/22 11:02 0.00 Capillary Refill : General Appearance: No Apparent Distress, Chronically ill, Obese Respiratory: Lungs Clear, No Respiratory Distress Cardiovascular: Regular Rate, Rhythm, No Murmur Gastrointestinal: Normal Bowel Sounds, Soft Neurologic/Psychiatric: Alert, Oriented x3 (to person and place) Results/Procedures Lab Laboratory Tests 08/07/22 05:27 Patient resulted labs reviewed. Imaging: Reviewed Imaging Report Assessment/Plan Assessment and Plan Assess & Plan/Chief Complaint UTI Continue IV abx Await cultures- still pending Does not meet sepsis criteria [place] on CKD Baseline r&d engineer around 1.6, today at 1.7 Trend Hold Lisinopril and Lasix per med fill history Fall Debility Was admitted last week for similar Imaging evaluation without acute injuries PT/OT IRU evaluation Social work consult as may need placement HTN T2DM AFib Obesity Continue home meds as able Attempted to restart as much as possible off med refill history Diagnosis/Problems Diagnosis/Problems (1) Acute on chronic renal failure (2) Chronic a-fib (3) General weakness (4) UTI (urinary tract infection) (5) Unwitnessed fall Status: Acute (6) Chronic anticoagulation Status: Acute (7) Dementia Status: Chronic (8) Obesity Status: Chronic (9) T2DM (type 2 diabetes mellitus) Status: Chronic (10) Essential (primary) hypertension Status: Chronic (11) Hospitalization or health care facility admission within last 6 months Status: Acute TALAT SLAUGHTER MD Aug 07, 2022 11:29
[2022-08-07] MEDS ORDERED: MEMANTINE 5 MG (NAMENDA) TABLET PO NR (11:30)
[2022-08-07] MEDS ORDERED: LORATADINE (CLARITIN) 10 MG TAB PO NR (11:30)
[2022-08-07] MEDS ORDERED: meTOprolol TARTRATE 25 MG (LOPRESSOR) TABLET PO NR (12:00)
[2022-08-07 12:08] VITALS: BP 132/60
[2022-08-07 16:16] VITALS: BP 113/55
[2022-08-07] MEDS: RIVAROXABAN 15 MG TABLET (XARELTO) PO SCH (17:09)
[2022-08-07 19:56] VITALS: BP 106/69
[2022-08-07] MEDS: cefTRIAXone 1 GM/NS 50 ML IVPB IV SCH ×2 (20:14)
[2022-08-07] MEDS: MEMANTINE 5 MG (NAMENDA) TABLET PO SCH (20:15)
[2022-08-07] MEDS: meTOprolol TARTRATE 25 MG (LOPRESSOR) TABLET PO SCH (20:15)
[2022-08-07 23:34] VITALS: BP 128/62
[2022-08-08 03:40] VITALS: BP 131/62
[2022-08-08 05:19] LABS: BASOPHILS # (AUTO) 0.1 10^3/uL (0.0-0.1); BASOPHILS % (AUTO) 1 % (0-10); EOSINOPHILS # (AUTO) 0.7 10^3/uL (0.0-0.3); EOSINOPHILS % (AUTO) 9 % (0-10); HEMATOCRIT 28 % (35-52); HEMOGLOBIN 9.2 g/dL (11.5-16.0); LYMPHOCYTES # (AUTO) 1.7 10^3/uL (1.0-4.0); LYMPHOCYTES % (AUTO) 20 % (12-44); MEAN CORPUSCULAR HEMOGLOBIN 32 pg (25-34); MEAN CORPUSCULAR HGB CONC 33 g/dL (32-36); MEAN CORPUSCULAR VOLUME 96 fL (80-99); MEAN PLATELET VOLUME 9.3 fL (9.0-12.2); MONOCYTES # (AUTO) 0.7 10^3/uL (0.0-1.0); MONOCYTES % (AUTO) 8 % (0-12); NEUTROPHILS # (AUTO) 5.2 10^3/uL (1.8-7.8); NEUTROPHILS % (AUTO) 62 % (42-75); PLATELET COUNT 140 10^3/uL (130-400); WHITE BLOOD COUNT 8.4 10^3/uL (4.3-11.0)
[2022-08-08 05:33] LABS: POTASSIUM 3.8 MMOL/L (3.6-5.0)
[2022-08-08 05:35] LABS: CALCIUM 8.8 MG/DL (8.5-10.1)
[2022-08-08 05:36] LABS: TOTAL PROTEIN 5.7 GM/DL (6.4-8.2)
[2022-08-08 05:38] LABS: BILIRUBIN,TOTAL 1.1 MG/DL (0.1-1.0)
[2022-08-08 05:39] LABS: CREATININE SERUM 1.58 MG/DL (0.60-1.30)
[2022-08-08 07:44] VITALS: BP 135/62
[2022-08-08] MEDS: LORATADINE (CLARITIN) 10 MG TAB PO SCH (08:15)
[2022-08-08] MEDS: MEMANTINE 5 MG (NAMENDA) TABLET PO SCH ×2 (08:16→19:34)
[2022-08-08] MEDS: meTOprolol TARTRATE 25 MG (LOPRESSOR) TABLET PO SCH ×2 (08:16→19:34)
[2022-08-08] MEDS: ALLOPURINOL 100 MG (ZYLOPRIM) TAB PO SCH (08:16)
--- NOTE | 2022-08-08 09:58 | Physical Therapy Daily Note ---
PT Daily Note-Current Subjective Patient very confused but agrees to therapy. Pain Section J - Health Conditions 1. Rarely or not at all 2. Occasionally 3. Frequently 4. Almost constantly 8. Unable to answer Pain Effect on Sleep: 8 Pain Interference with Therapy: 8 Pain Interference w/Day-to-Day: 8 Mental Status Patient Orientation: Confused Attachments: [place]ton Catheter Transfers SCALE: Activities may be completed with or without assistive devices. 7-Eimkrxaihg-idxncsi completes the activity by him/herself with no assistance from a helper. 5-Set-up or Clean-up Assistance-helper sets up or cleans up; patient completes activity. [place] assists only prior to or following the activity. 4-Supervision or Touching Assistance-helper provides verbal cues and/or touching/steadying and/or contact guard assistance as patient completes activity. Assistance may be provided throughout the activity or intermittently. 3-Partial/Moderate Assistance-helper does LESS THAN HALF the effort. [place] lifts, holds or supports trunk or limbs, but provides less than half the effort. 2-Substantial/Maximal Assistance-helper does MORE THAN HALF the effort. [place] lifts or holds trunk or limbs and provides more than half the effort. 1-Ruvztwpzy-jzgitx does ALL the effort. Patient does none of the effort to complete the activity. Or, the assistance of 2 or more helpers is required for the patient to complete the activity. If activity was not attempted, code reason: 7-Patient Refused. 9-Not Applicable-not attempted and the patient did not perform the activity before the current illness, exacerbation or injury. 10-Not Attempted due to Environmental Limitations-(lack of equipment, weather restraints, etc.). 88-Not Attempted due to Medical Conditions or Safety Concerns. Lying to Sitting/Side of Bed(Q: 4 Sit to Stand (QC): 4 Chair/Olf-rx-Ecivd Xfer(QC): 4 Weight Bearing Right Lower Extremity: Right Full Weight Bearing Left Lower Extremity: Left Full Weight Bearing Gait Training Distance: 250' Walk 10 feet (QC): 4 Walk 50 ft with 2 Turns(QC): 4 Walk 150 ft (QC): 4 Gait Assistive Device: FWW slow, steady, functional gait sequence Assessment Patient tolerated treatment well and is up in recliner with chair alarm activated. Patient did cognitively clear during session. Patient is SBA with all mobility. PT Short Term Goals Short Term Goals Time Frame: Aug 10, 2022 Roll Left & Right: 6 Sit to lyin Lying to sitting on side of be: 6 Sit to stand: 6 PT Care Home Goals Geographic Information Systems Engineer Goals PT Care Home Goals Time Frame: Aug 13, 2022 Roll Left & Right (QC): 6 Sit to Lying (QC): 6 Lying-Sitting on Side/Bed(QC): 6 Sit to Stand (QC): 6 Chair/Xsb-la-Majjw Xfer(QC): 6 Toilet Transfer (QC): 6 Car Transfer (QC): 4 Does the Patient Walk: Yes Walk 10 feet (QC): 6 Walk 50ft with 2 Turns (QC): 6 Walk 150 ft (QC): 6 Walking 10ft on Uneven Surface: 6 1 Step (curb) (QC): 6 4 Steps (QC): 4 12 Steps (QC): 9 Does the Pt use WC or Scooter?: No Type: N/A Type: N/A PT Plan Treatment/Plan Treatment Plan: Continue Plan of Care Treatment Plan: Bed Mobility, Education, Functional Activity Magdiel, Functional Strength, Gait, Safety, Therapeutic Exercise, Transfers Treatment Duration: Aug 13, 2022 Frequency: 6 times per week Estimated Hrs Per Day: .25 hour per day Patient and/or Family Agrees t: Yes Time Time In: 832 Time Out: 848 DATE: Aug 08, 2022 Total Billed Treatment Time: 16 Total Billed Treatment 1 visit FA 16 min HANS BEARD PT Aug 08, 2022 09:58
--- NOTE | 2022-08-08 10:10 | Occupational Therapy Eval ---
OT Evaluation-General/PLF Medical Diagnosis Admission Date Aug 05, 2022 at 21:35 Medical Diagnosis: UTI, weakness, fall Onset Date: Aug 05, 2022 Therapy Diagnosis Therapy Diagnosis: confusion, need for assistance w/ personel care, weakness Precautions Precautions/Isolations: Standard Precautions Safety Interventions: Bed Exit Alarm (chair) Referral Physician: Kareen Referral Reason: Activity Tolerance, Self Care, Evaluation/Treatment Medical History Pertinent Medical History: Atrial Fib, CVA, Dementia, Heart Failure, HTN, Renal Insufficiency Social History Home: Single Level Current Living Status: Alone Entry Into Home: Stairs Without Railing Steps Into Home: 2 Patient was confused with her address, home/apartment and if someone helps her at home. ADL-Prior Level of Function SCALE: Activities may be completed with or without assistive devices. 9-Mvzfgquzna-bfzkxzn completes the activity by him/herself with no assistance from a helper. 5-Set-up or Clean-up Assistance-helper sets up or cleans up; patient completes activity. [place] assists only prior to or following the activity. 4-Supervision or Touching Assistance-helper provides verbal cues and/or touching/steadying and/or contact guard assistance as patient completes activity. Assistance may be provided throughout the activity or intermittently. 3-Partial/Moderate Assistance-helper does LESS THAN HALF the effort. [place] lifts, holds or supports trunk or limbs, but provides less than half the effort. 2-Substantial/Maximal Assistance-helper does MORE THAN HALF the effort. [place] lifts or holds trunk or limbs and provides more than half the effort. 9-Vgkhchyfn-yfjzsv does ALL the effort. Patient does none of the effort to complete the activity. Or, the assistance of 2 or more helpers is required for the patient to complete the activity. If activity was not attempted, code reason: 7-Patient Refused. 9-Not Applicable-not attempted and the patient did not perform the activity before the current illness, exacerbation or injury. 10-Not Attempted due to Environmental Limitations-(lack of equipment, weather restraints, etc.). 88-Not Attempted due to Medical Conditions or Safety Concerns. Self Care: Needed Some Help Functional Cognition: Needed Some Help Drive Self: No OT Current Status Subjective Agreeable ot therapy Pain Numeric Pain Scale: 3 Location Body Site: Foot (patient could not express any furthter details) Mental Status/Objective Patient Orientation: Person, Situation Attachments: Cao Catheter, IV Current Glasses/Contacts: Yes Upper Extremity ROM BUE ROM WFLS w/ exception of close joint approximation d/t excessive soft tissue Upper Extremity Strength +3/5 grossly ADL-Treatment Eating (QC): 6 Oral Hygiene (QC): 4 (slight confusion and requires next step commands to complete) Shower/Bathe Self (QC): 7 Upper Body Dressing (QC): 3 Lower Body Dressing (QC): 3 On/Off Footwear (QC): 3 (Patient reports she doesn ot feroz her socks, however also reports she dresses heself completely and thirdly that home health gets her dressed. PLOF unknown) Toileting Hygiene (QC): 7 (coa, denies need to toilet) Patents returns to recliner w/ all needs met and call light in reach, use of call light and safety precautions w/ chair alarm to reduce falls provided Education OT Patient Education: Correct positioning, Modified ADL techniques, Progress toward Goal/Update tx plan, Purpose of tx/functional activities, Reviewed precautions, Rehab process, Safety issues, Transfer techniques, Use of adapted equipment, W/C management Teaching Recipient: Patient Teaching Methods: Demonstration, Discussion Response to Teaching: Verbalize Understanding, Reinforcement Needed OT Bag Turner Goals Bag Turner Goals 1=Demonstrate adherence to instructed precautions during ADL tasks. 2=Patient will verbalize/demonstrate understanding of assistive devices/modifications for ADL. 3=Patient will improve strength/tolerance for activity to enable patient to perform ADL's. OT Education/Plan Problem List/Assessment Assessment: Decreased Activ Tolerance, Decreased Safety Aware, Impaired Cognition, Impaired Coordination, Impaired Funct Balance, Restricted Funct UE ROM Discharge Recommendations Plan/Recommendations: Continue POC Therapy Discharge Recommendati: Post Acute OT Treatment Plan/Plan of Care Treatment,Training & Education: Yes Patient would benefit from OT for education, treatment and training to promote independence in ADL's, mobility, safety and/or upper extremity function for ADL's. Plan of Care: ADL Retraining, Cognitive Retraining, Concurrent Therapy, Group Exercise/Act as Ind, UE Funct Exercise/Act Treatment Duration: Aug 13, 2022 Frequency: 3 times per week (3-5 times per day) Estimated Hrs Per Day: .25 hour per day Agreement: Yes Rehab Potential: Fair Time Start Time: 08:32 Stop Time: 08:48 DATE: Aug 08, 2022 Total Time Billed (hr/min): 16 Billed Treatment Time EVM 16 min EDGARD DOE OT Aug 08, 2022 10:10
[2022-08-08 12:01] VITALS: BP 117/58
--- NOTE | 2022-08-08 15:29 | Progress Note - Hospitalist ---
Subjective HPI/CC On Admission Date Seen by Provider: Aug 08, 2022 Time Seen by Provider: 10:55 Amara Padgett is an 81 year old female with PMH HTN, T2DM, AFib, CKD 3b, obesity, who presented to the ER after a fall at home. Her son found her on the floor in the kitchen yesterday. She was seen by home health PT yesterday earlier in the day and was in her normal state. Her son states that she is normally quite with it but she was confused when he found her yesterday. She was unsure how she fell and did not even seem to realize that she was on the floor. He decided to take her to the emergency department for evaluation. She was found have a urinary tract infection. Trauma imaging was done which showed no acute findings. This morning she knows who she is and that she is in the hospital but she is still confused about how she got here. Subjective/Events-last exam She is doing well. She is in a good mood. She is sitting in her chair. She walked with therapy. She has no complaints. Objective Exam Vital Signs Vital Signs Date Time Temp Pulse Resp B/P (MAP) Pulse Ox O2 Delivery O2 Flow Rate FiO2 08/08/22 13:00 70 08/08/22 12:01 36.3 20 117/58 (77) 98 Room Air 08/07/22 22:27 0.00 08/06/22 11:15 21 Capillary Refill : General Appearance: No Apparent Distress, Obese Respiratory: Lungs Clear, No Respiratory Distress Cardiovascular: Regular Rate, Rhythm, No Murmur Gastrointestinal: Normal Bowel Sounds, Soft Extremity: Normal Inspection, Pedal Edema Neurologic/Psychiatric: Alert, Normal Mood/Affect Skin: Normal Color, Warm/Dry Results/Procedures Lab Laboratory Tests 08/08/22 05:00 Patient resulted labs reviewed. Imaging: Reviewed Imaging Report Assessment/Plan Assessment and Plan Assess & Plan/Chief Complaint UTI Continue IV abx Await cultures- still pending Does not meet sepsis criteria [place] on CKD 3b Creatinine at baseline Hold Lisinopril and Lasix per med fill history Fall Debility Was admitted last week for similar Imaging evaluation without acute injuries PT/OT IRU evaluation Social work consult as may need placement HTN T2DM AFib Obesity Continue home meds as able Diagnosis/Problems Diagnosis/Problems (1) UTI (urinary tract infection) (2) Acute on chronic renal failure (3) Fall on same level Status: Acute (4) Debility Status: Acute (5) Hospitalization or health care facility admission within last 6 months Status: Acute (6) Obesity Status: Chronic (7) Chronic atrial fibrillation Status: Acute (8) Chronic anticoagulation Status: Acute (9) Dementia Status: Chronic (10) T2DM (type 2 diabetes mellitus) Status: Chronic VANDANA STOVALL MD Aug 08, 2022 15:29
[2022-08-08 16:00] VITALS: BP 120/59
[2022-08-08] MEDS: RIVAROXABAN 15 MG TABLET (XARELTO) PO SCH (16:38)
[2022-08-08 19:05] VITALS: BP 124/63
[2022-08-08] MEDS: cefTRIAXone 1 GM/NS 50 ML IVPB IV SCH ×2 (19:34)
[2022-08-08 23:18] VITALS: BP 119/78
[2022-08-09] VITALS (7 sets, daily range): BP systolic 101–136; BP diastolic 59–88
[2022-08-09 05:44] LABS: BASOPHILS # (AUTO) 0.1 10^3/uL (0.0-0.1); BASOPHILS % (AUTO) 1 % (0-10); EOSINOPHILS # (AUTO) 0.8 10^3/uL (0.0-0.3); EOSINOPHILS % (AUTO) 10 % (0-10); HEMATOCRIT 27 % (35-52); HEMOGLOBIN 8.7 g/dL (11.5-16.0); LYMPHOCYTES # (AUTO) 1.8 10^3/uL (1.0-4.0); LYMPHOCYTES % (AUTO) 21 % (12-44); MEAN CORPUSCULAR HEMOGLOBIN 31 pg (25-34); MEAN CORPUSCULAR HGB CONC 32 g/dL (32-36); MEAN CORPUSCULAR VOLUME 97 fL (80-99); MEAN PLATELET VOLUME 9.7 fL (9.0-12.2); MONOCYTES # (AUTO) 0.7 10^3/uL (0.0-1.0); MONOCYTES % (AUTO) 8 % (0-12); NEUTROPHILS # (AUTO) 5.2 10^3/uL (1.8-7.8); NEUTROPHILS % (AUTO) 61 % (42-75); PLATELET COUNT 158 10^3/uL (130-400); WHITE BLOOD COUNT 8.6 10^3/uL (4.3-11.0)
[2022-08-09 06:09] LABS: ALBUMIN 2.8 GM/DL (3.2-4.5); BILIRUBIN,TOTAL 0.8 MG/DL (0.1-1.0); CALCIUM 8.6 MG/DL (8.5-10.1); CREATININE SERUM 1.71 MG/DL (0.60-1.30); POTASSIUM 4.2 MMOL/L (3.6-5.0); TOTAL PROTEIN 5.4 GM/DL (6.4-8.2)
[2022-08-09] MEDS: MEMANTINE 5 MG (NAMENDA) TABLET PO SCH ×2 (08:07→20:10)
[2022-08-09] MEDS: LORATADINE (CLARITIN) 10 MG TAB PO SCH (08:07)
[2022-08-09] MEDS: ALLOPURINOL 100 MG (ZYLOPRIM) TAB PO SCH (08:07)
[2022-08-09] MEDS: meTOprolol TARTRATE 25 MG (LOPRESSOR) TABLET PO SCH ×2 (08:07→20:10)
--- NOTE | 2022-08-09 11:16 | Physical Therapy Daily Note ---
PT Daily Note-Current Subjective Patient agrees to PT. Pain Section J - Health Conditions 1. Rarely or not at all 2. Occasionally 3. Frequently 4. Almost constantly 8. Unable to answer Pain Effect on Sleep: 8 Pain Interference with Therapy: 8 Pain Interference w/Day-to-Day: 8 Mental Status Patient Orientation: Person Transfers SCALE: Activities may be completed with or without assistive devices. 5-Cecrtkheev-xrlrzjl completes the activity by him/herself with no assistance from a helper. 5-Set-up or Clean-up Assistance-helper sets up or cleans up; patient completes activity. Milton assists only prior to or following the activity. 4-Supervision or Touching Assistance-helper provides verbal cues and/or touching/steadying and/or contact guard assistance as patient completes activity. Assistance may be provided throughout the activity or intermittently. 3-Partial/Moderate Assistance-helper does LESS THAN HALF the effort. Milton lifts, holds or supports trunk or limbs, but provides less than half the effort. 2-Substantial/Maximal Assistance-helper does MORE THAN HALF the effort. [place] lifts or holds trunk or limbs and provides more than half the effort. 2-Lyhlkkexd-bwmrnw does ALL the effort. Patient does none of the effort to complete the activity. Or, the assistance of 2 or more helpers is required for the patient to complete the activity. If activity was not attempted, code reason: 7-Patient Refused. 9-Not Applicable-not attempted and the patient did not perform the activity before the current illness, exacerbation or injury. 10-Not Attempted due to Environmental Limitations-(lack of equipment, weather restraints, etc.). 88-Not Attempted due to Medical Conditions or Safety Concerns. Lying to Sitting/Side of Bed(Q: 4 Sit to Stand (QC): 4 Chair/Quf-ty-Mbzka Xfer(QC): 4 Weight Bearing Right Lower Extremity: Right Full Weight Bearing Left Lower Extremity: Left Full Weight Bearing Gait Training Distance: 250' Walk 10 feet (QC): 4 Walk 50 ft with 2 Turns(QC): 4 Walk 150 ft (QC): 4 Gait Assistive Device: FWW CGA and VC's for body placement in FWW with noted extended UE's with use/slow, steady gait sequence Assessment Patient continues to be confused and slow to respond to questions. Patient does fatigue with minimal activity. PT to continue to increase activity as tolerated by patient. 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 PT Sheet Metal Production Worker Goals Time Frame: Aug 13, 2022 Roll Left & Right (QC): 6 Sit to Lying (QC): 6 Lying-Sitting on Side/Bed(QC): 6 Sit to Stand (QC): 6 Chair/Fvn-ky-Lpfgz Xfer(QC): 6 Toilet Transfer (QC): 6 Car Transfer (QC): 4 Does the Patient Walk: Yes Walk 10 feet (QC): 6 Walk 50ft with 2 Turns (QC): 6 Walk 150 ft (QC): 6 Walking 10ft on Uneven Surface: 6 1 Step (curb) (QC): 6 4 Steps (QC): 4 12 Steps (QC): 9 Does the Pt use WC or Scooter?: No Type: N/A Type: N/A PT Plan Treatment/Plan Treatment Plan: Continue Plan of Care Treatment Plan: Bed Mobility, Education, Functional Activity Magdiel, Functional Strength, Gait, Safety, Therapeutic Exercise, Transfers Treatment Duration: Aug 13, 2022 Frequency: 6 times per week Estimated Hrs Per Day: .25 hour per day Patient and/or Family Agrees t: Yes Time Time In: 1041 Time Out: 1055 DATE: Aug 09, 2022 Total Billed Treatment Time: 14 Total Billed Treatment 1 visit GT 14 min HANS BEARD PT Aug 09, 2022 11:16
--- NOTE | 2022-08-09 14:15 | Occupational Ther Daily Note ---
OT Current Status-Daily Note Subjective Up in recliner agreeable to OT Mental Status/Objective Patient Orientation: Person, Place (able to state adress and apartment village name), Time, Situation ADL-Treatment Therapy Code Descriptions/Definitions Functional [place] Measure: 0=Not Assessed/NA 4=Minimal Assistance 1=Total Assistance 5=Supervision or Setup 2=Maximal Assistance 6=Modified [place] 3=Moderate Assistance 7=Complete IndependenceSCALE: Activities may be completed with or without assistive devices. 7-Lozhpkspml-jutcgtm completes the activity by him/herself with no assistance from a helper. 5-Set-up or Clean-up Assistance-helper sets up or cleans up; patient completes activity. Edgar assists only prior to or following the activity. 4-Supervision or Touching Assistance-helper provides verbal cues and/or touchi ng/steadying and/or contact guard assistance as patient completes activity. Assistance may be provided throughout the activity or intermittently. 3-Partial/Moderate Assistance-helper does LESS THAN HALF the effort. Edgar lifts, holds or supports trunk or limbs, but provides less than half the effort. 2-Substantial/Maximal Assistance-helper does MORE THAN HALF the effort. Edgar lifts or holds trunk or limbs and provides more than half the effort. 2-Vsskivevv-ygeypz does ALL the effort. Patient does none of the effort to complete the activity. Or, the assistance of 2 or more helpers is required for the patient to complete the activity. If activity was not attempted, code reason: 7-Patient Refused. 9-Not Applicable-not attempted and the patient did not perform the activity before the current illness, exacerbation or injury. 10-Not Attempted due to Environmental Limitations-(lack of equipment, weather restraints, etc.). 88-Not Attempted due to Medical Conditions or Safety Concerns. Eating (QC): 6 Oral Hygiene (QC): 5 (oral care supplies provided and set up , encouragement to "Open" toothpaste tube) Shower/Bathe Self (QC): 7 Upper Body Dressing (QC): 4 Lower Body Dressing (QC): 4 On/Off Footwear: 4 Toileting Hygiene (QC): 4 Toilet Transfer (QC): 4 Education OT Patient Education: Exercise program, Modified ADL techniques, Progress toward Goal/Update tx plan, Purpose of tx/functional activities, Reviewed precautions, Rehab process, Safety issues, Transfer techniques Teaching Recipient: Patient Teaching Methods: Demonstration, Discussion Response to Teaching: Reinforcement Needed OT Dock Superintendent Goals Penitentiary Goals 1=Demonstrate adherence to instructed precautions during ADL tasks. 2=Patient will verbalize/demonstrate understanding of assistive devices/modifications for ADL. 3=Patient will improve strength/tolerance for activity to enable patient to perform ADL's. OT Education/Plan Discharge Recommendations Plan/Recommendations: Continue POC Treatment Plan/Plan of Care Patient would benefit from OT for education, treatment and training to promote independence in ADL's, mobility, safety and/or upper extremity function for ADL's. Plan of Care: ADL Retraining, Cognitive Retraining, Concurrent Therapy, Group Exercise/Act as Ind, UE Funct Exercise/Act Treatment Duration: Aug 13, 2022 Frequency: 3 times per week (3-5 times per day) Estimated Hrs Per Day: .25 hour per day Agreement: Yes Rehab Potential: Fair Time Start Time: 11:01 Stop Time: 11:11 DATE: Aug 09, 2022 Total Time Billed (hr/min): 10 Billed Treatment Time ADL 10 min EDGARD DOE OT Aug 09, 2022 14:15
--- NOTE | 2022-08-09 17:27 | Physician Query-Final Dx ---
SHALINI LOYD 08/09/22 1727: Final Diagnosis Give Final Diagnosis Please give Final Diagnosis The medical record reflects the following clinical evidence: Clinical Indicators: Prior to admission son found her confused and on the floor, GCS 13 on admission, did improve to 15 over about 24 hours, Risk Factor(s): Advanced age with UTI and ORVILLE on admission. Hx of Dementia Treatment: Neuro monitoring, CT Head, IV ABX and IV fluids for UTI and ORV[place]LE Metabolic encephalopathy, present on admission now resolved Other explanation of clinical findings Unable to determine (no explanation for clinical findings) Please clarify and document your clinical opinion in the progress notes and discharge summary including the definitive and/or presumptive diagnosis, (suspected or probable), related to the above clinical findings. Please include clinical findings supporting your diagnosis. Shalini Loyd, MSN, RN Clinical Tongue And Groove Machine Feeder [phone] [email or web address] VANDANA STOVALL MD 08/10/22 0821: Final Diagnosis Give Final Diagnosis Metabolic encephalopathy due to UTI SHALINI LOYD Aug 09, 2022 17:27 VANDANA STOVALL MD Aug 10, 2022 08:21
[2022-08-09] MEDS ORDERED: ATOR40TA70 PO (17:28)
[2022-08-09] MEDS ORDERED: MAGN250T13 PO (17:28)
[2022-08-09] MEDS ORDERED: CEFD300C3 PO (17:28)
[2022-08-09] MEDS ORDERED: LORA10TA7 PO (17:28)
[2022-08-09] MEDS ORDERED: RIVA20TA2 PO (17:28)
[2022-08-09] MEDS ORDERED: METO50TA15 PO (17:28)
[2022-08-09] MEDS ORDERED: FERR325T18 PO ×2 (17:28)
[2022-08-09] MEDS ORDERED: ALLO100T PO (17:28)
[2022-08-09] MEDS ORDERED: MEMA10TA57 PO (17:28)
--- NOTE | 2022-08-09 17:28 | Progress Note - Hospitalist ---
Subjective HPI/CC On Admission Date Seen by Provider: Aug 09, 2022 Time Seen by Provider: 09:15 Amara Padgett is an 81 year old female with PMH HTN, T2DM, AFib, CKD 3b, obesity, who presented to the ER after a fall at home. Her son found her on the floor in the kitchen yesterday. She was seen by home health PT yesterday earlier in the day and was in her normal state. Her son states that she is normally quite with it but she was confused when he found her yesterday. She was unsure how she fell and did not even seem to realize that she was on the floor. He decided to take her to the emergency department for evaluation. She was found have a urinary tract infection. Trauma imaging was done which showed no acute findings. This morning she knows who she is and that she is in the hospital but she is still confused about how she got here. Subjective/Events-last exam She is feeling well. She has no complaints. Objective Exam Vital Signs Vital Signs Date Time Temp Pulse Resp B/P (MAP) Pulse Ox O2 Delivery O2 Flow Rate FiO2 08/09/22 15:47 36.3 67 18 114/59 (77) 96 Room Air 08/09/22 03:48 0.00 0.00 08/06/22 11:15 21 Capillary Refill : General Appearance: No Apparent Distress, Obese Respiratory: Lungs Clear, No Respiratory Distress Cardiovascular: No Edema, Systolic Murmur Gastrointestinal: Normal Bowel Sounds, Soft Extremity: Normal Inspection, No Pedal Edema Neurologic/Psychiatric: Alert, No Motor/Sensory Deficits Skin: Normal Color, Warm/Dry Results/Procedures Lab Laboratory Tests 08/09/22 04:59 Patient resulted labs reviewed. Imaging: Reviewed Imaging Report Assessment/Plan Assessment and Plan Assess & Plan/Chief Complaint Proteus UTI Transition to Omnicef ORVILLE on CKD 3b Creatinine at baseline Hold Lisinopril and Lasix Fall Debility Was admitted last week for similar Imaging evaluation without acute injuries PT/OT Social work following Planning for transfer to [facility] tomorrow HTN T2DM AFib Obesity Continue home meds as able Diagnosis/Problems Diagnosis/Problems (1) UTI (urinary tract infection) (2) Acute on chronic renal failure (3) Fall on same level Status: Acute (4) Debility Status: Acute (5) Hospitalization or health care facility admission within last 6 months Status: Acute (6) Obesity Status: Chronic (7) Chronic atrial fibrillation Status: Acute (8) Chronic anticoagulation Status: Acute (9) Dementia Status: Chronic (10) T2DM (type 2 diabetes mellitus) Status: Chronic VANDANA STOVALL MD Aug 09, 2022 17:28
[2022-08-09] MEDS: RIVAROXABAN 15 MG TABLET (XARELTO) PO SCH (18:06)
[2022-08-09] MEDS: CEFDINIR 300 MG (OMNICEF) CAP PO SCH (20:10)
[2022-08-09] MEDS ORDERED: LACTULOSE SYRUP 10GM/15ML (ENULOSE) 30ML UDC PO PRN (23:30)
[2022-08-10 03:49] VITALS: BP 113/57
[2022-08-10 05:41] LABS: BASOPHILS # (AUTO) 0.1 10^3/uL (0.0-0.1); BASOPHILS % (AUTO) 1 % (0-10); EOSINOPHILS # (AUTO) 0.8 10^3/uL (0.0-0.3); EOSINOPHILS % (AUTO) 10 % (0-10); HEMATOCRIT 27 % (35-52); HEMOGLOBIN 8.7 g/dL (11.5-16.0); LYMPHOCYTES # (AUTO) 1.7 10^3/uL (1.0-4.0); LYMPHOCYTES % (AUTO) 20 % (12-44); MEAN CORPUSCULAR HEMOGLOBIN 31 pg (25-34); MEAN CORPUSCULAR HGB CONC 32 g/dL (32-36); MEAN CORPUSCULAR VOLUME 97 fL (80-99); MEAN PLATELET VOLUME 9.5 fL (9.0-12.2); MONOCYTES # (AUTO) 0.8 10^3/uL (0.0-1.0); MONOCYTES % (AUTO) 10 % (0-12); NEUTROPHILS % (AUTO) 60 % (42-75); PLATELET COUNT 164 10^3/uL (130-400); WHITE BLOOD COUNT 8.4 10^3/uL (4.3-11.0)
[2022-08-10 05:54] LABS: ALBUMIN 2.7 GM/DL (3.2-4.5); POTASSIUM 4.3 MMOL/L (3.6-5.0)
[2022-08-10 05:55] LABS: CALCIUM 8.6 MG/DL (8.5-10.1)
[2022-08-10 05:56] LABS: TOTAL PROTEIN 5.3 GM/DL (6.4-8.2)
[2022-08-10 05:58] LABS: BILIRUBIN,TOTAL 0.7 MG/DL (0.1-1.0)
[2022-08-10 06:00] LABS: CREATININE SERUM 1.45 MG/DL (0.60-1.30)
[2022-08-10 07:44] VITALS: BP 112/68
[2022-08-10] MEDS: MEMANTINE 5 MG (NAMENDA) TABLET PO SCH (08:17)
[2022-08-10] MEDS: meTOprolol TARTRATE 25 MG (LOPRESSOR) TABLET PO SCH (08:17)
[2022-08-10] MEDS: ALLOPURINOL 100 MG (ZYLOPRIM) TAB PO SCH (08:17)
[2022-08-10] MEDS: LORATADINE (CLARITIN) 10 MG TAB PO SCH (08:17)
[2022-08-10] MEDS: CEFDINIR 300 MG (OMNICEF) CAP PO SCH (08:17)
--- NOTE | 2022-08-10 11:01 | Discharge Inst-Skilled Nursing ---
Discharge Inst-Skilled NF Consult/Follow Up/Orders Follow Up Appt.: one week with Dr. Osullivan Skilled NF Admit to: [facility] Certification (SNF) I certify that SNF services are required to be given on an inpatient basis because of the above named patient's need for half-way care on a continuing basis for the conditions(s) for which he/she was receiving inpatient hospital services prior to his/her transfer to the SNF. Custodial Facility Order: Nursing Services, Block Mechanic-Evaluate & Treat, Physical Therapy-Evaluate & Treat Oxygen Delivery Method: Room Air Discharge Diet: Low Sodium Diet Daily Activity as Tolerated: Yes New & Resume Previous Orders Nerissa Stovall Aug 10, 2022 11:00 NERISSA STOVALL MD Aug 10, 2022 11:01
--- NOTE | 2022-08-10 13:05 | Discharge Summary ---
Discharge Summary Hospital Course Problems/Dx: (1) UTI (urinary tract infection) Status: Acute (2) Acute on chronic renal failure Status: Acute (3) Fall on same level Status: Acute (4) Debility Status: Acute (5) Hospitalization or health care facility admission within last 6 months Status: Acute (6) Obesity Status: Chronic (7) Chronic atrial fibrillation Status: Acute (8) Chronic anticoagulation Status: Acute (9) Dementia Status: Chronic (10) T2DM (type 2 diabetes mellitus) Status: Chronic Hospital Course Date of Admission: Aug 05, 2022 at 21:35 Admission Diagnosis : UTI Family Physician/Provider: Mary Chaves MD Date of Discharge: 08/10/22 Discharge Diagnosis: Proteus UTI, ORVIL[place] on CKD Hospital Course: Amara Padgett is an 82 year old female who was admitted with UTI. She was treated with IV antibiotics and improved. Her culture grew Proteus and she was transitioned to Omnicef. She also had ORVIL[place] on CKD and responded to gentle fluid r esuscitation. She was debilitated. She had recently been hospitalized. She was discharged to [facility] for skilled therapies in stable condition. Labs and Pending Lab Test: Laboratory Tests 08/10/22 05:16: White Blood Count 8.4, Red Blood Count 2.79L, Hemoglobin 8.7L, Hematocrit 27L, Mean Corpuscular Volume 97, Mean Corpuscular Hemoglobin 31, Mean Corpuscular Hemoglobin Concent 32, Red Cell Distribution Width 19.4H, Platelet Count 164, Mean Platelet Volume 9.5, Immature Granulocyte % (Auto) 1, Neutrophils (%) (Auto) 60, Lymphocytes (%) (Auto) 20, Monocytes (%) (Auto) 10, Eosinophils (%) (Auto) 10, Basophils (%) (Auto) 1, Neutrophils # (Auto) 5.0, Lymphocytes # (Auto) 1.7, Monocytes # (Auto) 0.8, Eosinophils # (Auto) 0.8H, Basophils # (Auto) 0.1, Immature Granulocyte # (Auto) 0.0, Sodium Level 137, Potassium Level 4.3, Chloride Level 108H, Carbon Dioxide Level 22, Anion Gap 7, Blood Urea Nitrogen 38H, Creatinine 1.45H, Estimat Glomerular Filtration Rate 36, BUN/Creatinine Ratio 26, Glucose Level 105, Calcium Level 8.6, Corrected Calcium 9.6, Total Bilirubin 0.7, Aspartate Amino Transf (AST/SGOT) 30, Alanine Aminotransferase (ALT/SGPT) 28, Alkaline Phosphatase 138H, Total Protein 5.3L, Albumin 2.7L Microbiology 08/05/22 Urine Culture - Final, Complete Proteus mirabilis 08/05/22 Blood Culture - Preliminary, Resulted No growth Home Meds Active Cefdinir 300 Mg Capsule 300 Mg PO BID 4 Days Ferrous Sulfate 325 Mg (65 Mg Iron) Tablet 325 Mg PO 1800 30 Days Xarelto Tablet (Rivaroxaban) 20 Mg Tablet 20 Mg PO 1800 30 Days Metoprolol Tartrate 50 Mg Tablet 25 Mg PO BID 30 Days Loratadine 10 Mg Tablet 10 Mg PO DAILY 30 Days Magnesium (Magnesium Oxide) 250 Mg Tablet 250 Mg PO DAILY 30 Days Ferrous Sulfate 325 Mg (65 Mg Iron) Tablet 650 Mg PO DAILY 30 Days TAKES 2 (325MG) TABS Atorvastatin Calcium 40 Mg Tablet 40 Mg PO 1800 30 Days Memantine HCl 10 Mg Tablet 10 Mg PO BID 30 Days Allopurinol 100 Mg Tablet 100 Mg PO DAILY 30 Days Assessment/Pt Instructions See instructions Discharge Planning: >30 minutes discharge planning Discharge Instructions Discharge Diet: Low Sodium Diet Activity as Tolerated: Yes Discharge Physical Examination Vital Signs Vital Signs Date Time Temp Pulse Resp B/P (MAP) Pulse Ox O2 Delivery O2 Flow Rate FiO2 08/10/22 10:50 08/10/22 08:00 Room Air 08/10/22 07:44 36.6 68 16 95 08/09/22 03:48 0.00 0.00 08/06/22 11:15 21 General Appearance: No Apparent Distress, Obese Respiratory: Lungs Clear, No Respiratory Distress Cardiovascular: Regular Rate, Rhythm, No Murmur Gastrointestinal: Normal Bowel Sounds, Soft Extremity: Normal Inspection, No Pedal Edema Skin: Normal Color, Warm/Dry Neurologic/Psychiatric: Alert, Normal Mood/Affect Allergies: Coded Allergies: Penicillins (Verified Allergy, Unknown, 05/27/22) Copy Copies To 1: MARY CHAVES MD Discharge Summary Date of Admission Aug 05, 2022 at 21:35 Date of Discharge Aug 10, 2022 at 10:50 Discharge Date: Aug 10, 2022 Discharge Time: 10:50 Admission Diagnosis UTI Discharge Diagnosis Proteus UTI [place] on CKD 3b Fall Debility HTN T2DM AFib Obesity (1) UTI (urinary tract infection) Status: Acute (2) Acute on chronic renal failure Status: Acute (3) Fall on same level Status: Acute (4) Debility Status: Acute (5) Hospitalization or health care facility admission within last 6 months Status: Acute (6) Obesity Status: Chronic (7) Chronic atrial fibrillation Status: Acute (8) Chronic anticoagulation Status: Acute (9) Dementia Status: Chronic (10) T2DM (type 2 diabetes mellitus) Status: Chronic VANDANA STOVALL MD Aug 10, 2022 13:05
== END 2022-08-10 10:50 | DRG 689 ==
LOC: EDUNIT# 18:45 → ER 18:47 → 4TH 21:35
PROVIDERS: ADMIT Family Medicine; ATTEND Internal Medicine
DX: N39.0 Urinary tract infection, site not specified (principal); G93.41 Metabolic encephalopathy; N17.9 Acute kidney failure, unspecified; I13.0 Hypertensive heart and chronic kidney disease with heart failure and stage 1 through stage 4 chronic kidney disease, or unspecified chronic kidney disease; I48.20 Chronic atrial fibrillation, unspecified; B96.4 Proteus (mirabilis) (morganii) as the cause of diseases classified elsewhere; E11.22 Type 2 diabetes mellitus with diabetic chronic kidney disease; N18.32 Chronic kidney disease, stage 3b; I50.9 Heart failure, unspecified; Z20.822 Contact with and (suspected) exposure to COVID-19; F03.90 Unspecified dementia, unspecified severity, without behavioral disturbance, psychotic disturbance, mood disturbance, and anxiety; Z79.01 Long term (current) use of anticoagulants; E78.5 Hyperlipidemia, unspecified; E66.9 Obesity, unspecified; Z68.35 Body mass index [BMI] 35.0-35.9, adult; S09.90XA Unspecified injury of head, initial encounter; Z23 Encounter for immunization; Z90.5 Acquired absence of kidney; Z79.899 Other long term (current) drug therapy; Z88.0 Allergy status to penicillin; W19.XXXA Unspecified fall, initial encounter
CPT/HCPCS: 36415; 51702; 70450; 70486; 71045; 72125; 72170; 73080; 80053; 81000; 82550; 82553; 83735; 83874; 83880; 84443; 84484; 85025; 85610; 85652; 85730; 86141; 87040; 87077; 87088; 87186; 87636; 90715; 93005; 93041; 94664; 94760

== ENCOUNTER 2022-08-19 04:18 | Emergency (ER) | payer MEDICARE, BC ==
[~2022-08-19] VITALS: Ht 157.4 cm; Wt 87.5 kg
[~2022-08-19 04:18] MED LIST changes: +CEFD300C3 PO
[2022-08-19] MEDS ORDERED: LIDOCAINE UROJET 2% GEL 10 ML PKG TOP ONE (04:30)
--- NOTE | 2022-08-19 04:38 | ED General ---
General Stated Complaint: STROKE LIKE SYMPTOMS Source of Information: EMS, Custodial Records, Old Records Exam Limitations: Other (PT WITH DEMENTIA, UNABLE TO GIVE ANY INFORMATION) History of Present Illness Date Seen by Provider: Aug 19, 2022 Time Seen by Provider: 04:19 Initial Comments PT ARRIVES VIA EMS FROM [facility] ( NO CALL FROM [facility] ) SENT HERE FOR POSSIBLE STROKE SYMPTOMS PER EMS, [facility] REPORTED THAT PT WAS NORMAL BASELINE AT 0250 SHE WAS FOUND PRIOR TO ARRIVAL TO HAVE RIGHT FACIAL DROOP AND RIGHT ARM WEAKNESS. EMS REPORT THAT THEY DID NOT NOTE ANY WEAKNESS OR FACIAL DROOP ON THEIR EXAM. 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 SON MOVED HER HERE TO BE CLOSER TO HIM--SHE WAS MOVED TO AN APARTMENT BY HERSELF HERE IN [place] SHE WAS SEEN HERE 05/27/22 AND ADMITTED UNTIL 05/31/22 FOR GENERALIZED WEAKNESS AND CHF SHE WAS ADMITTED AGAIN FROM 07/25/22-07/27/22 AFTER AN UNWITNESSED FALL, AND DISMISSED BACK TO HOME BY HERSELF SHE WAS ADMITTED AGAIN 08/05/22-08/10/22 AFTER AN UNWITNESSED FALL, AND WAS DX WITH UTI AT THAT TIME. SHE WAS THEN ADMITTED TO [facility] ON 08/10/22 AFTER BEING DISMISSED FROM THE HOSPITAL. SHE FINISHED [facility] ON 08/14/22. PCP: DR CHAVES CHYRON OPERATOR: DR. OWENS Allergies and Home Medications Allergies Coded Allergies: Penicillins (Verified Allergy, Unknown, 05/27/22) Patient Home Medication List Home Medication List Reviewed: Yes Allopurinol (Allopurinol) 100 Mg Tablet, 100 MG PO DAILY Prescribed by: VANDANA STOVALL on 08/09/221727 Atorvastatin Calcium (Atorvastatin Calcium) 40 Mg Tablet, 40 MG PO 1800 Prescribed by: VANDANA STOVALL on 08/09/221727 Cefdinir (Cefdinir) 300 Mg Capsule, 300 MG PO BID Prescribed by: VANDANA STOVALL on 08/09/221727 Ferrous Sulfate (Ferrous Sulfate) 325 Mg (65 Mg Iron) Tablet, 650 MG PO DAILY Prescribed by: VANDANA STOVALL on 08/09/221727 Ferrous Sulfate (Ferrous Sulfate) 325 Mg (65 Mg Iron) Tablet, 325 MG PO 1800 Prescribed by: VANDANA STOVALL on 08/09/221727 Loratadine (Loratadine) 10 Mg Tablet, 10 MG PO DAILY Prescribed by: VANDANA STOVALL on 08/09/221727 Magnesium Oxide (Magnesium) 250 Mg Tablet, 250 MG PO DAILY Prescribed by: VANDANA STOVALL on 08/09/221727 Memantine HCl (Memantine HCl) 10 Mg Tablet, 10 MG PO BID Prescribed by: VANDANA STOVALL on 08/09/221727 Metoprolol Tartrate (Metoprolol Tartrate) 50 Mg Tablet, 25 MG PO BID Prescribed by: VANDANA STOVALL on 08/09/221727 Rivaroxaban (Xarelto Tablet) 20 Mg Tablet, 20 MG PO 1800 Prescribed by: VANDANA STOVALL on 08/09/221727 Review of Systems Review of Systems Constitutional: see HPI Past Hbuhuxi-[id number]-Wusznp Hx Immunizations Up To Date First/Initial COVID19 Vaccinat: NO Second COVID19 Vaccination Suleiman: NO Third COVID19 Vaccination Date: NO Past Medical History Surgery/Hospitalization HX: BILATERAL FOOT/KNEE, RIGHT NEPHRECTOMY, HYSTERECTOMY, CHF, DEMENTIA, HLD, HTN, Surgeries: Yes Appendectomy, Hysterectomy, Nephrectomy, Orthopedic Respiratory: No Cardiac: Yes (CHF) Atrial Fibrillation, Chronic Edema/Swelling, High Cholesterol, Hypertension, Irregular Heartbeat Neurological: Yes Dementia, Stroke Genitourinary: Yes (SINGLE KIDNEY; CHRONIC RENAL INSUFF. ) Bladder Infection, Renal Failure Gastrointestinal: Yes Gastroesophageal Reflux Musculoskeletal: Yes (FALLS) Arthritis Endocrine: Yes (OBESITY) Diabetes, Non-Insulin dep HEENT: No (GLASSES) Cancer: No Psychosocial: No Integumentary: No Blood Disorders: Yes (ANEMIA; THROMBOCYTOPENIA) Family Medical History No Pertinent Family Hx Physical Exam Vital Signs Vital Signs - First Documented 08/19/22 04:19 Temp 35.7 Pulse 88 Resp 20 B/P (MAP) 143/99 (114) Pulse Ox 98 O2 Delivery Room Air Capillary Refill : Height, Weight, BMI Height: '" Weight: lbs. oz. kg; 35.31 BMI Method: General Appearance: No Apparent Distress, WD/WN HEENT: PERRL/EOMI, Other (GLASSES; NO FACIAL DROOP NOTED. 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 NO FOCAL DEFICITS. SHE IS ABLE TO MOVE ALL 4 EXTREMITIES EQUALLY. SHE IS ORIENTED TO SELF, KNOWS PRESIDENT IS ARTEMIO. KNOWS HER DR IS ANASTACIO--SHE DOES REPEAT "ONEALMIAN" SEVERAL TIMES WHEN ASKING OTHER QUESTIONS. SHE IS DISORIENTED TO PLACE, TIME AND SITUATION. THIS IS PT'S NORMAL BASELINE WITH HER DEMENTIA.) Skin: Normal Color, Warm/Dry; No Ecchymosis Progress/Results/Core Measures Suspected Sepsis SIRS Temperature: Pulse: Respiratory Rate: Laboratory Tests 08/19/22 04:32: White Blood Count 7.8 Blood Pressure / Mean: Laboratory Tests 08/19/22 04:32: Creatinine 1.72H, INR Comment 3.5H, Platelet Count 151, Total Bilirubin 1.2H Results/Orders Lab Results Laboratory Tests Test 08/19/22 04:25 08/19/22 04:30 08/19/22 04:32 Range/Units Urine Color YELLOW Urine Clarity CLEAR Urine pH 5.5 5-9 Urine Specific [place] 1.010 L 1.016-1.022 Urine Protein NEGATIVE NEGATIVE Urine Glucose (UA) NEGATIVE NEGATIVE Urine Ketones NEGATIVE NEGATIVE Urine Nitrite NEGATIVE NEGATIVE Urine Bilirubin NEGATIVE NEGATIVE Urine Urobilinogen 0.2 < = 1.0 MG/DL Urine Leukocyte Esterase NEGATIVE NEGATIVE Urine RBC (Auto) NEGATIVE NEGATIVE Urine RBC NONE /HPF Urine WBC 0-2 /HPF Urine Squamous Epithelial Cells 10-25 H /HPF Urine Crystals NONE /LPF Urine Bacteria FEW H /HPF Urine Casts NONE /LPF Urine Mucus SMALL H /LPF Urine Culture Indicated NO Glucometer 119 H 70-110 MG/DL White Blood Count 7.8 4.3-11.0 10^3/uL Red Blood Count 2.84 L 3.80-5.11 10^6/uL Hemoglobin 9.0 L 11.5-16.0 g/dL Hematocrit 29 L 35-52 % Mean Corpuscular Volume 102 H 80-99 fL Mean Corpuscular Hemoglobin 32 25-34 pg Mean Corpuscular Hemoglobin Concent 31 L 32-36 g/dL Red Cell Distribution Width 20.5 H 10.0-14.5 % Platelet Count 151 130-400 10^3/uL Mean Platelet Volume 9.8 9.0-12.2 fL Immature Granulocyte % (Auto) 0 % Neutrophils (%) (Auto) 66 42-75 % Lymphocytes (%) (Auto) 15 12-44 % Monocytes (%) (Auto) 8 0-12 % Eosinophils (%) (Auto) 10 0-10 % Basophils (%) (Auto) 1 0-10 % Neutrophils # (Auto) 5.1 1.8-7.8 10^3/uL Lymphocytes # (Auto) 1.2 1.0-4.0 10^3/uL Monocytes # (Auto) 0.6 0.0-1.0 10^3/uL Eosinophils # (Auto) 0.8 H 0.0-0.3 10^3/uL Basophils # (Auto) 0.1 0.0-0.1 10^3/uL Immature Granulocyte # (Auto) 0.0 0.0-0.1 10^3/uL Prothrombin Time 34.4 H 12.2-14.7 SEC INR Comment 3.5 H 0.8-1.4 Activated Partial Thromboplast Time 50 H 24-35 SEC Sodium Level 145 135-145 MMOL/L Potassium Level 4.3 3.6-5.0 MMOL/L Chloride Level 111 H 98-107 MMOL/L Carbon Dioxide Level 22 21-32 MMOL/L Anion Gap 12 5-14 MMOL/L Blood Urea Nitrogen 44 H 7-18 MG/DL Creatinine 1.72 H 0.60-1.30 MG/DL Estimat Glomerular Filtration Rate 30 BUN/Creatinine Ratio 26 Glucose Level 125 H 70-105 MG/DL Calcium Level 9.3 8.5-10.1 MG/DL Corrected Calcium 9.8 8.5-10.1 MG/DL Magnesium Level 2.5 H 1.6-2.4 MG/DL Total Bilirubin 1.2 H 0.1-1.0 MG/DL Aspartate Amino Transf (AST/SGOT) 30 5-34 U/L Alanine Aminotransferase (ALT/SGPT) 35 0-55 U/L Alkaline Phosphatase 206 H 40-136 U/L Troponin I < 0.028 <0.028 NG/ML Total Protein 6.5 6.4-8.2 GM/DL Albumin 3.4 3.2-4.5 GM/DL My Orders Orders - BEATRIS SANDRA DO Ed Iv/Invasive Line Start (08/19/22 04:20) Ekg Tracing (08/19/22 04:20) Catheter(Urinary) Insert & Ass 03,15 (08/19/22 04:20) O2 (08/19/22 04:20) Monitor-Rhythm Ecg Trace Only (08/19/22 04:20) Ct Head Wo-R/O Stroke (08/19/22 04:20) Chest 1 View, Ap/Pa Only (08/19/22 04:20) Cbc With Automated Diff (08/19/22 04:20) Comprehensive Metabolic Panel (08/19/22 04:20) Magnesium (08/19/22 04:20) Protime With Inr (08/19/22 04:20) Partial Thromboplastin Time (08/19/22 04:20) Ua Culture If Indicated (08/19/22 04:20) Troponin I Jennifer (08/19/22 04:20) Lidocaine 2% (Urojet) (Xylocaine Urojet) (08/19/22 04:30) Accucheck Stat ONCE (08/19/22 04:41) Vital Signs/I&O 08/19/22 04:19 Temp 35.7 Pulse 88 Resp 20 B/P (MAP) 143/99 (114) Pulse Ox 98 O2 Delivery Room Air Capillary Refill : Progress Note : Progress Note LABS INCLUDING CBC, CMP, TROPONIN, PT/PTT, UA ORDERED, WELL EKG, CXR AND CT HEAD VITALS ON ARRIVAL : TEMP 35.7 = 96.2, HR 88, RR 20, BP 143/99, O2 SAT 98% ON ROOM AIR NIH IS 0 PT DOES NOT HAVE ANY PHYSICAL FINDINGS OF STROKE, AND PT IS AT HER NORMAL BASELINE MENTATION CT HEAD DOES NOT SHOW ANY ACUTE PROCESS EKG SHOWS CHRONIC ATRIAL FIBRILLATION AND IS UNCHANGED CXR IS UNCHANGED ALL LABS ARE ESSENTIALLY UNCHANGED FROM PREVIOUS CBC WITH HGB 9.0, WHICH IS STABLE--LAST HGB ON 08/10/22 WAS 8.7 CMP WITH NORMAL ELECTROLYTES; BUN 44, CR 1.72 IS NEAR BASELINE FOR PT; GLUCOSE IS NORMAL. TROPONIN IS NEGATIVE PT/PTT/INR 34.4/50/3.5--PT IS ON ANTICOAGULATION THERAPY. UA IS ESSENTIALLY CLEAR TODAY WITH FEW BACTERIA, NO NITRITES, NO LEUKOCYTES AND 0-2 WBC, NO BLOOD THERE ARE NO ACUTE FINDINGS ON TODAY'S TESTS OR EXAM VITALS ARE STABLE, AND PT IS AFEBRILE PT SLEPT THROUGH MOST OF ER STAY, EASILY AWAKES AND IS AT NORMAL BASELINE VITALS PRIOR TO DISMISSAL: BP 133/56, HR 68, RR 12, O2 SAT 100% ROOM AIR WHILE SLEEPING REVIEWED CARE HOME PAPERS, PRIOR RECORDS, INCLUDING ER VISITS, ADMITS/H&P'S/CONSULTS/DISCHARGE SUMMARIES, TESTS/PROCEDURES. UNABLE TO CONTACT SON, WHO IS HER DPOA. ECG Initial ECG Impression Date: Aug 19, 2022 Initial ECG Impression Time: 04:36 Initial ECG Rate: 74 Initial ECG Rhythm: A Fib/Flutter Initial ECG Intervals RI--N/A QRS 98 QT/QTC 424/452 Initial ECG Impression: Atrial Fibrillation Initial ECG Comparisson: Unchanged Comment INTERPRETED BY ME. Diagnostic Imaging Comments CT HEAD--PER [facility] VIA PHONE AND VIA FAX AT [phone] -NO CT EVIDENCE OF ACUTE TERRITORIAL INFARCT, MASS-EFFECT, OR INTRACRANIAL HEMORRHAGE Reviewed: Reviewed by Me, Reviewed/Discussed Departure Impression Primary Impression: Dementia Additional Impressions: Non-insulin dependent type 2 diabetes mellitus Chronic atrial fibrillation Essential (primary) hypertension CKD (chronic kidney disease) Chronic anemia Disposition: 03 XFER SNF Condition: Stable Departure-Patient Inst. Decision time for Depature: 05:30 Referrals: MARY CHAVES MD (PCP/Family) Primary Care Physician Patient Instructions: Atrial Fibrillation and Atrial Flutter ED, Dementia ED, Chronic Kidney Disease (DC) Add. Discharge Instructions: CONTINUE ALL MEDICATIONS PRESCRIBED FOLLOW UP WITH YOUR DR NEEDED, RETURN TO ER IF YOU HAVE ANY WORSENING OR NEW SYMPTOMS BEATRIS SANDRA DO Aug 19, 2022 04:38
[2022-08-19 04:55] LABS: BILIRUBIN,URINE NEGATIVE (NEGATIVE); CLARITY,URINE CLEAR; COLOR,URINE YELLOW; GLUCOSE, URINE (UA) NEGATIVE (NEGATIVE); KETONES,URINE NEGATIVE (NEGATIVE); LEUKOCYTE ESTERASE ,URINE NEGATIVE (NEGATIVE); NITRITE,URINE NEGATIVE (NEGATIVE); PH,URINE 5.5 (5-9); PROTEIN,URINE NEGATIVE (NEGATIVE)
[2022-08-19 04:59] LABS: BASOPHILS # (AUTO) 0.1 10^3/uL (0.0-0.1); BASOPHILS % (AUTO) 1 % (0-10); EOSINOPHILS # (AUTO) 0.8 10^3/uL (0.0-0.3); EOSINOPHILS % (AUTO) 10 % (0-10); HEMATOCRIT 29 % (35-52); LYMPHOCYTES # (AUTO) 1.2 10^3/uL (1.0-4.0); LYMPHOCYTES % (AUTO) 15 % (12-44); MEAN CORPUSCULAR HEMOGLOBIN 32 pg (25-34); MEAN CORPUSCULAR HGB CONC 31 g/dL (32-36); MEAN CORPUSCULAR VOLUME 102 fL (80-99); MEAN PLATELET VOLUME 9.8 fL (9.0-12.2); MONOCYTES # (AUTO) 0.6 10^3/uL (0.0-1.0); MONOCYTES % (AUTO) 8 % (0-12); NEUTROPHILS # (AUTO) 5.1 10^3/uL (1.8-7.8); NEUTROPHILS % (AUTO) 66 % (42-75); PLATELET COUNT 151 10^3/uL (130-400); WHITE BLOOD COUNT 7.8 10^3/uL (4.3-11.0)
[2022-08-19 05:05] LABS: ALBUMIN 3.4 GM/DL (3.2-4.5); INR 3.5 (0.8-1.4); PROTHROMBIN TIME PATIENT 34.4 SEC (12.2-14.7)
[2022-08-19 05:05] LABS: BACTERIA,URINE FEW /HPF; WBC,URINE 0-2 /HPF
[2022-08-19 05:06] LABS: CHLORIDE 111 MMOL/L (98-107); POTASSIUM 4.3 MMOL/L (3.6-5.0); SODIUM 145 MMOL/L (135-145)
[2022-08-19 05:07] LABS: CALCIUM 9.3 MG/DL (8.5-10.1)
[2022-08-19 05:08] LABS: GLUCOSE 125 MG/DL (70-105); TOTAL PROTEIN 6.5 GM/DL (6.4-8.2)
[2022-08-19 05:09] LABS: CARBON DIOXIDE 22 MMOL/L (21-32)
[2022-08-19 05:10] LABS: BILIRUBIN,TOTAL 1.2 MG/DL (0.1-1.0)
[2022-08-19 05:12] LABS: ALKALINE PHOSPHATASE 206 U/L (40-136); CREATININE SERUM 1.72 MG/DL (0.60-1.30); GFR ESTIMATED 30
[2022-08-19 05:13] LABS: BUN/CREATININE RATIO 26
[2022-08-19 05:14] LABS: MAGNESIUM 2.5 MG/DL (1.6-2.4)
[2022-08-19 05:15] LABS: ALANINE AMINOTRANSFERASE 35 U/L (0-55)
--- NOTE | 2022-08-19 06:02 | Diagnostic Imaging Report ---
CHEST 1 VIEW, AP/PA ONLY Indication: Altered mental status, atrial fibrillation Comparison: 08/05/2022 Findings: No focal airspace disease in the visualized lungs. No pleural effusion or pneumothorax. Stable cardiac enlargement. Mediastinal contours are normal. Old healed left upper rib fracture. Impression: 1. No acute cardiopulmonary process by portable radiography. Dictated by: Dictated on workstation # [id number]
--- NOTE | 2022-08-19 06:04 | Diagnostic Imaging Report ---
PROCEDURE: CT head wo r/o stroke. TECHNIQUE: Multiple contiguous axial images were obtained through the brain without the use of intravenous contrast. Auto Exposure Controls were utilized during the CT exam to meet ALARA standards for radiation dose reduction. INDICATION: Altered mental status. COMPARISON: 08/05/2022. FINDINGS: No intracranial hyperdense hemorrhage or space-occupying mass. No hydrocephalus or midline shift. Mild periventricular hypoattenuation is unchanged most compatible with chronic microvascular ischemic change. The basilar cisterns are widely patent. Pituitary region is unremarkable. No hyperdense vessel sign. There is no acute calvarial abnormality. Mastoid air cells and paranasal sinuses are clear. IMPRESSION: 1. No acute intracranial process by CT. 2. Findings are in agreement with the preliminary report. Dictated by: Dictated on workstation # [id number]
[2022-08-19 07:30] VITALS: BP 134/75
== END 2022-08-19 07:30 ==
LOC: EDUNIT# 04:18 → ER 04:19
DX: F03.90 Unspecified dementia, unspecified severity, without behavioral disturbance, psychotic disturbance, mood disturbance, and anxiety (principal); I13.0 Hypertensive heart and chronic kidney disease with heart failure and stage 1 through stage 4 chronic kidney disease, or unspecified chronic kidney disease; I50.9 Heart failure, unspecified; E11.22 Type 2 diabetes mellitus with diabetic chronic kidney disease; D63.1 Anemia in chronic kidney disease; N18.9 Chronic kidney disease, unspecified; I48.91 Unspecified atrial fibrillation; E66.9 Obesity, unspecified; Z68.35 Body mass index [BMI] 35.0-35.9, adult; Z79.01 Long term (current) use of anticoagulants; Z90.5 Acquired absence of kidney; Z28.310 Unvaccinated for COVID-19
CPT/HCPCS: 36415; 51702; 70450; 71045; 80053; 81000; 82947; 83735; 84484; 85025; 85610; 85730; 93005; 93041

== ENCOUNTER 2022-08-19 10:31 | Emergency (ER) | payer MEDICARE, BC ==
[~2022-08-19] VITALS: Ht 162 cm; Wt 90.0 kg
[2022-08-19] MEDS ORDERED: NS IV 500 ML 500 ML IV ONE (11:00)
[2022-08-19 11:02] LABS: BASOPHILS # (AUTO) 0.1 10^3/uL (0.0-0.1); BASOPHILS % (AUTO) 1 % (0-10); EOSINOPHILS # (AUTO) 0.6 10^3/uL (0.0-0.3); EOSINOPHILS % (AUTO) 9 % (0-10); HEMATOCRIT 29 % (35-52); HEMOGLOBIN 9.1 g/dL (11.5-16.0); LYMPHOCYTES # (AUTO) 1.2 10^3/uL (1.0-4.0); LYMPHOCYTES % (AUTO) 17 % (12-44); MEAN CORPUSCULAR HEMOGLOBIN 32 pg (25-34); MEAN CORPUSCULAR HGB CONC 32 g/dL (32-36); MEAN CORPUSCULAR VOLUME 99 fL (80-99); MONOCYTES # (AUTO) 0.7 10^3/uL (0.0-1.0); MONOCYTES % (AUTO) 11 % (0-12); NEUTROPHILS # (AUTO) 4.3 10^3/uL (1.8-7.8); NEUTROPHILS % (AUTO) 62 % (42-75); PLATELET COUNT 139 10^3/uL (130-400); WHITE BLOOD COUNT 6.9 10^3/uL (4.3-11.0)
[2022-08-19 11:09] LABS: ABG BASE EXCESS 1.1 MMOL/L (-2.5-2.5); ABG OXYGEN SATURATION 99 % (94-100); ABG PCO2 38 MMHG (35-45); ABG PH 7.43 (7.37-7.43); ABG PO2 89 MMHG (79-93); ABG TCO2 26.4 MMOL/L (21.0-31.0)
--- NOTE | 2022-08-19 11:10 | ED General ---
General Chief Complaint: Altered Mental Status Stated Complaint: ALTERED MENTAL STATUS Nursing Triage Note: PATIENT IS BROUGHT TO ED FOR ALTERED MENTAL STATUS THAT HAS WORSENED SINCE BEING IN ED AROUND 0330. PATIENT ALERT BUT NOT ORIENTED. Source of Information: EMS Exam Limitations: Physical Impairments History of Present Illness Date Seen by Provider: Aug 19, 2022 Time Seen by Provider: 10:36 Initial Comments Here by EMS from primary care and rehab nursing facility with report of altered mental status that has worsened since 3:30 AM. Patient was actually seen here at 330 this morning and discharged back to their facility at 730 for this concern and had very thorough ED work-up including CT, labs and UA which did not show significant findings. She was able to assist with transfer to cot this morning on discharge. EMS reports that halfway nurse reported to her that the patient was worsening since 330 this morning and is very concerned about UTI. UA from this morning was negative for UTI, CT did not show any findings of stroke symptoms and labs are otherwise normal and at patient's baseline. She does have history of atrial fibrillation and is on Xarelto. Troponin was negative this morning. She does seem very drowsy now and is not answering questions well and follows some minimal commands. Timing/Duration: 4-6 Hours Severity: Moderate Associated Systoms: No Fever/Chills Allergies and Home Medications Allergies Coded Allergies: Penicillins (Verified Allergy, Unknown, 05/27/22) Patient Home Medication List Home Medication List Reviewed: Yes Allopurinol (Allopurinol) 100 Mg Tablet, 100 MG PO DAILY Prescribed by: VANDANA STOVALL on 08/09/221727 Atorvastatin Calcium (Atorvastatin Calcium) 40 Mg Tablet, 40 MG PO 1800 Prescribed by: VANDANA STOVALL on 08/09/22 172 Cefdinir (Cefdinir) 300 Mg Capsule, 300 MG PO BID Prescribed by: VANDANA STOVALL on 08/09/22 172 Ferrous Sulfate (Ferrous Sulfate) 325 Mg (65 Mg Iron) Tablet, 650 MG PO DAILY Prescribed by: VANDANA STOVALL on 08/09/221727 Ferrous Sulfate (Ferrous Sulfate) 325 Mg (65 Mg Iron) Tablet, 325 MG PO 1800 Prescribed by: VANDANA STOVALL on 08/09/221727 Loratadine (Loratadine) 10 Mg Tablet, 10 MG PO DAILY Prescribed by: VANDANA STOVALL on 08/09/221727 Magnesium Oxide (Magnesium) 250 Mg Tablet, 250 MG PO DAILY Prescribed by: VANDANA STOVALL on 08/09/221727 Memantine HCl (Memantine HCl) 10 Mg Tablet, 10 MG PO BID Prescribed by: VANDANA STOVALL on 08/09/221727 Metoprolol Tartrate (Metoprolol Tartrate) 50 Mg Tablet, 25 MG PO BID Prescribed by: VANDANA STOVALL on 08/09/221727 Rivaroxaban (Xarelto Tablet) 20 Mg Tablet, 20 MG PO 1800 Prescribed by: VANDANA STOVALL on 08/09/221727 Review of Systems Review of Systems Constitutional: see HPI; No chills, No fever Respiratory: No cough Gastrointestinal: No vomiting Patient does not have obvious cough, fever, vomiting but is not answering questions well currently which limits review of systems. Past Xxeetkp-Eqlazq-Ynkwaq Hx Patient Social History Tobacco Use?: No Substance use?: No Alcohol Use?: No Pt feels they are or have been: Unable to obtain Immunizations Up To Date First/Initial COVID19 Vaccinat: NO Second COVID19 Vaccination Suleiman: NO Third COVID19 Vaccination Date: NO Past Medical History Surgery/Hospitalization HX: BILATERAL FOOT/KNEE, RIGHT NEPHRECTOMY, HYSTERECTOMY, CHF, DEMENTIA, HLD, HTN, AFIB Surgeries: Yes Appendectomy, Hysterectomy, Nephrectomy, Orthopedic Respiratory: No Cardiac: Yes (CHF) Atrial Fibrillation, Chronic Edema/Swelling, High Cholesterol, Hypertension, Irregular Heartbeat Neurological: Yes Dementia, Stroke Genitourinary: Yes (SINGLE KIDNEY; CHRONIC RENAL INSUFF. ) Bladder Infection, Renal Failure Gastrointestinal: Yes Gastroesophageal Reflux Musculoskeletal: Yes (FALLS) Arthritis Endocrine: Yes (OBESITY) Diabetes, Non-Insulin dep HEENT: No (GLASSES) Cancer: No Psychosocial: No Integumentary: No Blood Disorders: Yes (ANEMIA; THROMBOCYTOPENIA) Family Medical History Reviewed Nursing Family Hx No Pertinent Family Hx Physical Exam Vital Signs Vital Signs - First Documented 08/19/22 10:36 Temp 35.9 Pulse 68 Resp 16 B/P (MAP) 125/82 (96) O2 Delivery Room Air Capillary Refill : Less Than 3 Seconds Height, Weight, BMI Height: '" Weight: lbs. oz. kg; 34.00 BMI Method: General Appearance: No Apparent Distress, Obese HEENT: PERRL/EOMI, Other (Mucous membranes dry) Neck: Non Tender, Supple Respiratory: Lungs Clear, Normal Breath Sounds Cardiovascular: No Murmur (Normal rate), Irregularly Irregular, Other Gastrointestinal: Non Tender, Soft Extremity: Pedal Edema (2+ bilateral lower extremities to mid tibia) Neurologic/Psychiatric: Other (Awakes to strong verbal and follow some basic commands and mumbles but does not answer questions well) Skin: Warm/Dry, Ecchymosis (Few areas of ecchymotic lesions on her arms bilateral) Progress/Results/Core Measures Suspected Sepsis SIRS Temperature: Pulse: 68 Respiratory Rate: 16 Laboratory Tests 08/19/22 10:45: White Blood Count 6.9 Blood Pressure 125 /82 Mean: 96 Laboratory Tests 08/19/22 10:45: Creatinine 1.61H, Platelet Count 139, Total Bilirubin 1.1H Results/Orders Lab Results Laboratory Tests Test 08/19/22 10:45 08/19/22 11:00 08/19/22 11:57 Range/Units White Blood Count 6.9 4.3-11.0 10^3/uL Red Blood Count 2.89 L 3.80-5.11 10^6/uL Hemoglobin 9.1 L 11.5-16.0 g/dL Hematocrit 29 L 35-52 % Mean Corpuscular Volume 99 80-99 fL Mean Corpuscular Hemoglobin 32 25-34 pg Mean Corpuscular Hemoglobin Concent 32 32-36 g/dL Red Cell Distribution Width 20.5 H 10.0-14.5 % Platelet Count 139 130-400 10^3/uL Mean Platelet Volume 10.0 9.0-12.2 fL Immature Granulocyte % (Auto) 0 % Neutrophils (%) (Auto) 62 42-75 % Lymphocytes (%) (Auto) 17 12-44 % Monocytes (%) (Auto) 11 0-12 % Eosinophils (%) (Auto) 9 0-10 % Basophils (%) (Auto) 1 0-10 % Neutrophils # (Auto) 4.3 1.8-7.8 10^3/uL Lymphocytes # (Auto) 1.2 1.0-4.0 10^3/uL Monocytes # (Auto) 0.7 0.0-1.0 10^3/uL Eosinophils # (Auto) 0.6 H 0.0-0.3 10^3/uL Basophils # (Auto) 0.1 0.0-0.1 10^3/uL Immature Granulocyte # (Auto) 0.0 0.0-0.1 10^3/uL Percent Immature Platelet Fraction 1.3 0.0-7.6 % Sodium Level 146 H 135-145 MMOL/L Potassium Level 4.4 3.6-5.0 MMOL/L Chloride Level 111 H 98-107 MMOL/L Carbon Dioxide Level 23 21-32 MMOL/L Anion Gap 12 5-14 MMOL/L Blood Urea Nitrogen 43 H 7-18 MG/DL Creatinine 1.61 H 0.60-1.30 MG/DL Estimat Glomerular Filtration Rate 32 BUN/Creatinine Ratio 27 Glucose Level 112 H 70-105 MG/DL Calcium Level 9.2 8.5-10.1 MG/DL Corrected Calcium 9.7 8.5-10.1 MG/DL Magnesium Level 2.4 1.6-2.4 MG/DL Total Bilirubin 1.1 H 0.1-1.0 MG/DL Aspartate Amino Transf (AST/SGOT) 29 5-34 U/L Alanine Aminotransferase (ALT/SGPT) 33 0-55 U/L Alkaline Phosphatase 200 H 40-136 U/L Troponin I < 0.028 <0.028 NG/ML C-Reactive Protein High Sensitivity 0.36 0.00-0.50 MG/DL B-Type Natriuretic Peptide 921.7 H <100.0 PG/ML Total Protein 6.5 6.4-8.2 GM/DL Albumin 3.4 3.2-4.5 GM/DL Blood Gas Puncture Site RIGHT RADIAL Blood Gas Patient Temperature 35.9 Arterial Blood pH 7.43 7.37-7.43 Arterial Blood Partial Pressure CO2 38 35-45 MMHG Arterial Blood Partial Pressure O2 89 79-93 MMHG Arterial Blood HCO3 25 23-27 MMOL/L Arterial Blood Total CO2 26.4 21.0-31.0 MMOL/L Arterial Blood Oxygen Saturation 99 94-100 % Arterial Blood Base Excess 1.1 -2.5-2.5 MMOL/L German Test YES-POS Blood Gas Ventilator Setting NO Blood Gas Inspired Oxygen ROOM AIR Urine Color YELLOW Urine Clarity CLEAR Urine pH 6.0 5-9 Urine Specific [place] <=1.005 1.016-1.022 Urine Protein NEGATIVE NEGATIVE Urine Glucose (UA) NEGATIVE NEGATIVE Urine Ketones NEGATIVE NEGATIVE Urine Nitrite NEGATIVE NEGATIVE Urine Bilirubin NEGATIVE NEGATIVE Urine Urobilinogen 0.2 < = 1.0 MG/DL Urine Leukocyte Esterase NEGATIVE NEGATIVE Urine RBC (Auto) 1+ H NEGATIVE Urine RBC 2-5 H /HPF Urine WBC NONE /HPF Urine Crystals NONE /LPF Urine Bacteria NEGATIVE /HPF Urine Casts NONE /LPF Urine Mucus NEGATIVE /LPF Urine Culture Indicated NO My Orders Orders - ABBEY CHAWLA MD Arterial Blood Gas (08/19/22 10:51) Cbc With Automated Diff (08/19/22 10:51) Comprehensive Metabolic Panel (08/19/22 10:51) Hs C Reactive Protein (08/19/22 10:51) Magnesium (08/19/22 10:51) Troponin I Jennifer (08/19/22 10:51) Ed Iv/Invasive Line Start (08/19/22 10:51) Ns Iv 500 Ml (Sodium Chloride 0.9%) (08/19/22 11:00) Ed Iv/Invasive Line Start (08/19/22 10:51) Ekg Tracing (08/19/22 10:51) Monitor-Rhythm Ecg Trace Only (08/19/22 10:51) Ekg Tracing (08/19/22 10:52) Bnp [place] (08/19/22 11:13) Ua Culture If Indicated (08/19/22 11:34) Ct Head Wo (08/19/22 ) Vital Signs/I&O 08/19/22 10:36 Temp 35.9 Pulse 68 Resp 16 B/P (MAP) 125/82 (96) O2 Delivery Room Air Capillary Refill : Less Than 3 Seconds Blood Pressure Mean: 96 Progress Note : Progress Note Seen and evaluated. I did reviewed notes from visit this morning and did see patient at discharge this morning. She does seem more drowsy currently. No report of recent falls. She is on Xarelto. CT was negative earlier this morning. Given her mental status decline in the patient is on anticoagulant, we will go ahead and repeat CT of the head. No indication for repeat UA at this point as UA this morning was from [place] catheter. We will repeat CBC and CMP and check troponin, BNP, CRP and get EKG. Normal saline 500 mL bolus ordered. Monitor patient. Differential diagnosis includes intracranial hemorrhage, stroke, dehydration, electrolyte abnormality, fatigue 1116: EKG reviewed and no concerning findings. Patient woke up and stated that she needed to go to the bathroom and wanted to bedpan. We will continue work-up and see how things progress from there. 1305: CBC essentially unchanged from this morning with lower hemoglobin but stable. White count is normal. CMP does show serum creatinine of 1.6 which is typical for her. Otherwise grossly unchanged. BNP is elevated at just over 900 indicating some mild heart failure. Chest x-ray this morning did not show significant failure pattern from visit earlier. Troponin is negative. UA is negative. CT head reviewed by me does not show intracranial hemorrhage. Radiology report reviewed and no concerns for other intracranial abnormality. I did discuss the case with Dr. Zuniga. We bed shortage here currently and patient would benefit from possible geriatric psych evaluation. Patient is stable for transfer to [place] if bed is available and Dr. Zuniga is willing to accept. Dr. Zuniga is willing to accept after review of the case including this morning and labs and CT now to her hospital service at [facility]. I have verified EMS ability to transfer to [facility]. I did discuss this with the son who was in agreement. Patient's primary care physician is also there and this will facilitate that work as well. Transfer to [facility] via EMS pending. Son agrees to plan. ECG Initial ECG Impression Date: Aug 19, 2022 Initial ECG Impression Time: 10:54 Initial ECG Rate: 78 Initial ECG Rhythm: A Fib/Flutter Comment Atrial fibrillation with normal axis. No evidence of ST elevation SC. Interpreted by me. Departure Impression Primary Impression: Altered mental status Additional Impression: Mild congestive heart failure Disposition: XFER [facility] Condition: Stable Transfer Transfer Reason: Diversion (Current bed shortage) Time Spoke to Accepting Phy: 13:05 Transfer Facility: [facility], Dr. Zuniga accepting Method of Transfer: EMS Departure-Patient Inst. Referrals: MARY CHAVES MD (PCP/Family) Primary Care Physician ABBEY CHAWLA MD Aug 19, 2022 11:10
[2022-08-19 11:11] LABS: ALLENS TEST YES-POS; INSPIRED O2 ROOM AIR; PATIENT TEMP 35.9; VENTILATOR NO
[2022-08-19 11:14] LABS: ALBUMIN 3.4 GM/DL (3.2-4.5); CHLORIDE 111 MMOL/L (98-107); POTASSIUM 4.4 MMOL/L (3.6-5.0); SODIUM 146 MMOL/L (135-145)
[2022-08-19 11:15] LABS: CALCIUM 9.2 MG/DL (8.5-10.1)
[2022-08-19 11:17] LABS: GLUCOSE 112 MG/DL (70-105); TOTAL PROTEIN 6.5 GM/DL (6.4-8.2)
[2022-08-19 11:18] LABS: BILIRUBIN,TOTAL 1.1 MG/DL (0.1-1.0); CARBON DIOXIDE 23 MMOL/L (21-32)
[2022-08-19 11:20] LABS: ALKALINE PHOSPHATASE 200 U/L (40-136); CREATININE SERUM 1.61 MG/DL (0.60-1.30); GFR ESTIMATED 32
[2022-08-19 11:21] LABS: BUN/CREATININE RATIO 27
[2022-08-19 11:23] LABS: ALANINE AMINOTRANSFERASE 33 U/L (0-55); MAGNESIUM 2.4 MG/DL (1.6-2.4)
[2022-08-19 12:07] LABS: BILIRUBIN,URINE NEGATIVE (NEGATIVE); CLARITY,URINE CLEAR; COLOR,URINE YELLOW; GLUCOSE, URINE (UA) NEGATIVE (NEGATIVE); KETONES,URINE NEGATIVE (NEGATIVE); LEUKOCYTE ESTERASE ,URINE NEGATIVE (NEGATIVE); NITRITE,URINE NEGATIVE (NEGATIVE); PROTEIN,URINE NEGATIVE (NEGATIVE)
[2022-08-19 12:17] LABS: BACTERIA,URINE NEGATIVE /HPF
--- NOTE | 2022-08-19 12:52 | Diagnostic Imaging Report ---
PROCEDURE: CT head without contrast. TECHNIQUE: Multiple contiguous axial images were obtained through the brain without the use of intravenous contrast. Auto Exposure Controls were utilized during the CT exam to meet ALARA standards for radiation dose reduction. INDICATION: Altered mental status, confusion. Comparison is made with prior head CT from 08/19/2022. Ventricles and sulci are stable in appearance. No sulcal effacement or midline shift is identified. No acute intra-axial or extra-axial hemorrhage is detected. Periventricular hypoattenuation is similar to prior exam and likely owing to chronic microvascular ischemia. The cisterns are patent. The visualized paranasal sinuses are clear. IMPRESSION: Stable chronic changes. No acute intracranial process is detected. Dictated by: Dictated on workstation # [id number]
[2022-08-19 14:30] VITALS: BP 139/89
== END 2022-08-19 14:30 | disposition short-term general hospital (02) ==
LOC: EDUNIT# 10:31 → ER 10:33
DX: R41.82 Altered mental status, unspecified (principal); I13.0 Hypertensive heart and chronic kidney disease with heart failure and stage 1 through stage 4 chronic kidney disease, or unspecified chronic kidney disease; E11.22 Type 2 diabetes mellitus with diabetic chronic kidney disease; I50.9 Heart failure, unspecified; N18.9 Chronic kidney disease, unspecified; R79.89 Other specified abnormal findings of blood chemistry; L98.9 Disorder of the skin and subcutaneous tissue, unspecified; I48.91 Unspecified atrial fibrillation; E66.9 Obesity, unspecified; Z79.01 Long term (current) use of anticoagulants; Z68.34 Body mass index [BMI] 34.0-34.9, adult; Z28.310 Unvaccinated for COVID-19
CPT/HCPCS: 36415; 36600; 70450; 80053; 81000; 82805; 83735; 83880; 84484; 85025; 86141; 93005; 93041

== ENCOUNTER 2022-10-29 09:39 | Inpatient (IN) | payer MEDICARE, BC ==
[~2022-10-29] VITALS: Ht 162 cm; Wt 115.0 kg
--- NOTE | 2022-10-29 10:08 | ED General ---
General Chief Complaint: Altered Mental Status Stated Complaint: UNRESPONSIVE Nursing Triage Note: PT PRESENTS TO ED VIA EMS FROM [facility] FOR UNRESPONSIVENESS STARTING THIS AM WHEN THEY WENT TO GET HER UP. PT DOES RESPOND THE MOVING HER OR PAIN BY SAYING OUCH AND SQUINTING HER EYES, MOVING EXTREMITIES. [facility] STAFF REPROTS PT HAS HX OF UTI'S AND TYPICALLY PRESENTS WITH SIMILAR SYMPTOMS. Source of Information: EMS, Shelter Records Exam Limitations: Physical Impairments History of Present Illness Date Seen by Provider: Oct 29, 2022 Time Seen by Provider: 09:41 Initial Comments By EMS with report of unresponsiveness this morning. She is from primary care and rehab. [facility] report to EMS was that she will get this way when she gets a urinary tract infection. Patient does have history of hypertension, CHF, UTIs as well as a variety of other conditions. EMS reports normal vital signs for them in route and normal O2 saturations. They did initiate IV and gave 100 mL bolus. Patient does respond to sternal rub with moaning but is not talking. She is protecting her airway well. Otherwise unable to get any history from the patient. Findings noted this morning when she was due to get up. Last known well time was last night. Timing/Duration: 12 Hours Severity: Moderate Allergies and Home Medications Allergies Coded Allergies: Penicillins (Verified Allergy, Unknown, 05/27/22) Patient Home Medication List Home Medication List Reviewed: Yes Allopurinol (Allopurinol) 100 Mg Tablet, 100 MG PO DAILY Prescribed by: VANDANA STOVALL on 08/09/221727 Atorvastatin Calcium (Atorvastatin Calcium) 40 Mg Tablet, 40 MG PO 1800 Prescribed by: VANDANA STOVALL on 08/09/221727 Cefdinir (Cefdinir) 300 Mg Capsule, 300 MG PO BID Prescribed by: VANDANA STOVALL on 08/09/221727 Ferrous Sulfate (Ferrous Sulfate) 325 Mg (65 Mg Iron) Tablet, 650 MG PO DAILY Prescribed by: VANDANA STOVALL on 08/09/221727 Ferrous Sulfate (Ferrous Sulfate) 325 Mg (65 Mg Iron) Tablet, 325 MG PO 1800 Prescribed by: VANDANA STOVALL on 08/09/221727 Loratadine (Loratadine) 10 Mg Tablet, 10 MG PO DAILY Prescribed by: VANDANA STOVALL on 08/09/221727 Magnesium Oxide (Magnesium) 250 Mg Tablet, 250 MG PO DAILY Prescribed by: VANDANA STOVALL on 08/09/221727 Memantine HCl (Memantine HCl) 10 Mg Tablet, 10 MG PO BID Prescribed by: VANDANA STOVALL on 08/09/221727 Metoprolol Tartrate (Metoprolol Tartrate) 50 Mg Tablet, 25 MG PO BID Prescribed by: VANDANA STOVALL on 08/09/221727 Rivaroxaban (Xarelto Tablet) 20 Mg Tablet, 20 MG PO 1800 Prescribed by: VANDANA STOVALL on 08/09/221727 Review of Systems Review of Systems Constitutional: see HPI Unable to complete review of systems due to altered mental status Past Zkwpjzx-Bnrkln-Oetfvk Hx Patient Social History Tobacco Use?: No Smoking Status: Unknown if Ever Smoked Substance use?: No Alcohol Use?: No Pt feels they are or have been: No Immunizations Up To Date First/Initial COVID19 Vaccinat: NO Second COVID19 Vaccination Suleiman: NO Third COVID19 Vaccination Date: NO Past Medical History Surgery/Hospitalization HX: BILATERAL FOOT/KNEE, RIGHT NEPHRECTOMY, HYSTERECTOMY/BSO; APPY; BILATERALTOTAL KNEE REPLACEMENTS, CHF, DEMENTIA, HLD, HTN, anemia, afib, dm2, hepatic encephalopy Surgeries: Yes Appendectomy, Hysterectomy, Nephrectomy, Orthopedic Respiratory: No Cardiac: Yes (CHF) Atrial Fibrillation, Chronic Edema/Swelling, High Cholesterol, Hypertension, Irregular Heartbeat Neurological: Yes Dementia, Stroke Genitourinary: Yes (SINGLE KIDNEY; CHRONIC RENAL INSUFF. ) Bladder Infection, Renal Failure Gastrointestinal: Yes Gastroesophageal Reflux Musculoskeletal: Yes (FALLS) Arthritis Endocrine: Yes (OBESITY) Diabetes, Non-Insulin dep HEENT: No (GLASSES) Cancer: No Psychosocial: No Integumentary: No Blood Disorders: Yes (ANEMIA; THROMBOCYTOPENIA) Family Medical History Reviewed Nursing Family Hx No Pertinent Family Hx Physical Exam-Suspected Sepsis Physical Exam Vital Signs Vital Signs - First Documented 10/29/22 10/29/22 09:43 12:32 Temp 36.3 Pulse 87 Resp 18 B/P (MAP) 131/71 Pulse Ox 94 O2 Delivery Room Air Capillary Refill : Less Than 3 Seconds Height, Weight, BMI Height: '" Weight: lbs. oz. kg; 45.00 BMI Method: General Appearance: No Apparent Distress, Obese, Other (Responsive to sternal rub) HEENT: PERRL/EOMI Neck: Non Tender, Supple Respiratory: No Respiratory Distress, Crackles (Few lateral basilar crackles) Cardiovascular: Regular Rate, Rhythm, No Murmur Gastrointestinal: Non Tender, Soft Extremity: Normal Range of Motion, Non Tender Neurologic/Psychiatric: Other (Patient responds to sternal rub does occasionally moan when moving air but otherwise is not answering questions or following commands. She does protect her airway well.) Skin: normal color, warm/dry Focused Exam Lactate Level 10/29/22 09:59: Lactic Acid Level 1.76 Lactic Acid Level Progress/Results/Core Measures Suspected Sepsis SIRS Temperature: Pulse: 87 Respiratory Rate: 18 Laboratory Tests 10/29/22 09:59: White Blood Count 5.5 Blood Pressure / Mean: 10/29/22 09:59: Lactic Acid Level 1.76 Laboratory Tests 10/29/22 09:59: Creatinine 2.16H, Platelet Count 143, Total Bilirubin 0.9 10/29/22 11:15: INR Comment 4.4H Results/Orders Lab Results Laboratory Tests Test 10/29/22 09:59 10/29/22 10:04 10/29/22 10:14 10/29/22 10:23 Range/Units White Blood Count 5.5 4.3-11.0 10^3/uL Red Blood Count 2.90 L 3.80-5.11 10^6/uL Hemoglobin 8.1 L 11.5-16.0 g/dL Hematocrit 29 L 35-52 % Mean Corpuscular Volume 101 H 80-99 fL Mean Corpuscular Hemoglobin 28 25-34 pg Mean Corpuscular Hemoglobin Concent 28 L 32-36 g/dL Red Cell Distribution Width 18.1 H 10.0-14.5 % Platelet Count 143 130-400 10^3/uL Mean Platelet Volume 10.3 9.0-12.2 fL Immature Granulocyte % (Auto) 0 % Neutrophils (%) (Auto) 61 42-75 % Lymphocytes (%) (Auto) 17 12-44 % Monocytes (%) (Auto) 14 H 0-12 % Eosinophils (%) (Auto) 7 0-10 % Basophils (%) (Auto) 1 0-10 % Neutrophils # (Auto) 3.3 1.8-7.8 10^3/uL Lymphocytes # (Auto) 1.0 1.0-4.0 10^3/uL Monocytes # (Auto) 0.8 0.0-1.0 10^3/uL Eosinophils # (Auto) 0.4 H 0.0-0.3 10^3/uL Basophils # (Auto) 0.0 0.0-0.1 10^3/uL Immature Granulocyte # (Auto) 0.0 0.0-0.1 10^3/uL Sodium Level 142 135-145 MMOL/L Potassium Level 5.0 3.6-5.0 MMOL/L Chloride Level 110 H 98-107 MMOL/L Carbon Dioxide Level 21 21-32 MMOL/L Anion Gap 11 5-14 MMOL/L Blood Urea Nitrogen 65 H 7-18 MG/DL Creatinine 2.16 H 0.60-1.30 MG/DL Estimat Glomerular Filtration Rate 22 BUN/Creatinine Ratio 30 Glucose Level 108 H 70-105 MG/DL Lactic Acid Level 1.76 0.50-2.00 MMOL/L Calcium Level 8.9 8.5-10.1 MG/DL Corrected Calcium 9.7 8.5-10.1 MG/DL Total Bilirubin 0.9 0.1-1.0 MG/DL Aspartate Amino Transf (AST/SGOT) 46 H 5-34 U/L Alanine Aminotransferase (ALT/SGPT) 24 0-55 U/L Alkaline Phosphatase 152 H 40-136 U/L Troponin I < 0.028 <0.028 NG/ML C-Reactive Protein High Sensitivity 0.55 H 0.00-0.50 MG/DL B-Type Natriuretic Peptide 836.9 H <100.0 PG/ML Total Protein 6.2 L 6.4-8.2 GM/DL Albumin 3.0 L 3.2-4.5 GM/DL Blood Gas Puncture Site RIGHT RADIAL Blood Gas Patient Temperature 36.3 Arterial Blood pH 7.40 7.37-7.43 Arterial Blood Partial Pressure CO2 39 35-45 MMHG Arterial Blood Partial Pressure O2 90 79-93 MMHG Arterial Blood HCO3 24 23-27 MMOL/L Arterial Blood Total CO2 25.3 21.0-31.0 MMOL/L Arterial Blood Oxygen Saturation 100 94-100 % Arterial Blood Base Excess -0.3 -2.5-2.5 MMOL/L German Test YES-POS Blood Gas Ventilator Setting NO Blood Gas Inspired Oxygen NA Urine Color YELLOW Urine Clarity CLEAR Urine pH 5.5 5-9 Urine Specific [place] 1.015 L 1.016-1.022 Urine Protein NEGATIVE NEGATIVE Urine Glucose (UA) NEGATIVE NEGATIVE Urine Ketones NEGATIVE NEGATIVE Urine Nitrite NEGATIVE NEGATIVE Urine Bilirubin NEGATIVE NEGATIVE Urine Urobilinogen 0.2 < = 1.0 MG/DL Urine Leukocyte Esterase NEGATIVE NEGATIVE Urine RBC (Auto) NEGATIVE NEGATIVE Urine RBC NONE /HPF Urine WBC RARE /HPF Urine Crystals NONE /LPF Urine Bacteria NEGATIVE /HPF Urine Casts NONE /LPF Urine Mucus NEGATIVE /LPF Urine Culture Indicated NO Influenza Type A (RT-PCR) Not Detected Not Detecte Influenza Type B (RT-PCR) Not Detected Not Detecte SARS-CoV-2 RNA (RT-PCR) Detected H Not Detecte Test 10/29/22 11:15 10/29/22 15:18 Range/Units Prothrombin Time 40.8 H 12.2-14.7 SEC INR Comment 4.4 H 0.8-1.4 Activated Partial Thromboplast Time 48 H 24-35 SEC Ammonia 126 H 11-32 UMOL/L Glucometer 109 70-110 MG/DL My Orders Orders - ABBEY CHAWLA MD Cbc With Automated Diff (10/29/22 10:01) Comprehensive Metabolic Panel (10/29/22 10:01) Blood Culture (10/29/22 10:01) Sputum Culture (10/29/22 10:01) Urinalysis (10/29/22 10:01) Urine Culture (10/29/22 10:01) Protime With Inr (10/29/22 10:01) Partial Thromboplastin Time (10/29/22 10:01) Chest 1 View, Ap/Pa Only (10/29/22 10:01) Ed Iv/Invasive Line Start (10/29/22 10:01) Vital Signs Adult Sepsis Patie Q15M (10/29/22 10:01) O2 (10/29/22 10:01) Remove Rings In Anticipation O (10/29/22 10:01) Lactic Acid Analyzer (10/29/22 10:01) Influenza A And B By Pcr (10/29/22 10:01) Arterial Blood Gas (10/29/22 10:01) Bnp Jennifer (10/29/22 10:01) Hs C Reactive Protein (10/29/22 10:01) Covid 19 Inhouse Test (10/29/22 10:01) Catheter(Urinary) Insert & Ass 03,15 (10/29/22 10:04) Ekg Tracing (10/29/22 10:08) Monitor-Rhythm Ecg Trace Only (10/29/22 10:08) Troponin I Jennifer (10/29/22 10:08) Code/Resuscitation (10/29/22 11:29) Ed Admission (Communication) (10/29/22 11:29) Vital Signs/I&O 10/29/22 10/29/22 10/29/22 10/29/22 09:43 12:32 12:59 13:00 Temp 36.3 36.2 Pulse 87 89 84 Resp 18 16 16 B/P (MAP) 131/71 112/77 (89) Pulse Ox 94 100 99 O2 Delivery Room Air Room Air Room Air 10/29/22 10/29/22 10/29/22 13:10 13:19 15:21 Temp 36.2 36.1 Pulse 74 74 74 Resp 16 B/P (MAP) 122/99 (107) Pulse Ox 94 100 O2 Delivery Room Air Capillary Refill : Less Than 3 Seconds Progress Note : Progress Note Seen and evaluated. EMS established IV and 100 mL normal saline bolus has been started. We will go ahead and initiate sepsis protocol and I will have them complete 500 mL of normal saline from EMS and then hold due to history of heart failure. We will get CBC, CMP, coags, blood cultures, lactic acid, influenza and COVID screen, CRP, BMP and troponin. Chest x-ray and EKG ordered. We will initiate Melton catheter. ABG ordered. Monitor patient. Differential diagnosis includes altered mental status from urinary tract infection, electrolyte abnormality, heart failure, cardiac event, pneumonia, viral infection 1122: Work-up reveals patient is positive for COVID. Chest x-ray reviewed by me shows no obvious infiltrate but does show cardiomegaly on my interpretation. CBC shows normal white count with a low hemoglobin. CMP reviewed and shows elevated serum creatinine grossly normal electrolytes and slightly elevated CRP. BNP is elevated and troponin is negative. Lactic acid is negative. UA does not show any significant abnormality. We are pending coags. I did discuss the case with Dr. Mathur, hospitalist on-call. Given her persistent altered mental status, admission is indicated and she will write orders. She will talk to the family. Patient to be admitted to cardiac stepdown. ECG Initial ECG Impression Date: Oct 29, 2022 Initial ECG Impression Time: 10:30 Initial ECG Rate: 74 Initial ECG Rhythm: A Fib/Flutter Initial ECG Impression: Atrial Fibrillation Comment Atrial fibrillation with normal axis. No evidence of ST elevation MS. Interpreted by me. Diagnostic Imaging Diagonstic Imaging: Xray Plain Films/CT/US/NM/MRI: chest Comments [facility], [place] NAME: RACHELE LANDAVERDE [facility] REC#: [id number] PT STATUS: REG ER : 1940 PHYSICIAN: ABBEY CHAWLA MD ADMIT DATE: 10/29/22/ER Draft Date of Exam:10/29/22 CHEST 1 VIEW, AP/PA ONLY INDICATION: Decreased level of consciousness, altered mental status. Frontal chest obtained at 1031 a.m. and compared to 08/19/2022. There is cardiomegaly. There is no focal infiltrate or pneumothorax or pleural fluid. IMPRESSION: Cardiomegaly with no acute process in the chest. Dictated on workstation # [id number] Dict: 10/29/22 1033 Trans: 10/29/22 [facility] JONY [id number] Interpreted by: DIO BOOKER MD Electronically signed by: Departure Communication (Admissions) Time/Spoke to Admitting Phy: 11:16 Impression Primary Impression: COVID-19 virus infection Additional Impressions: Altered mental status Qualified Codes: R40.0 - Somnolence Acute on chronic renal failure Qualified Codes: N17.1 - Acute kidney failure with acute cortical necrosis; N18.9 - Chronic kidney disease, unspecified Disposition: ADMITTED INPATIENT Condition: Stable Admissions Decision to Admit Reason: Admit from ER (General) Decision to Admit/Date: Oct 29, 2022 Time/Decision to Admit Time: 11:16 Departure-Patient Inst. Referrals: MARY CHAVES MD (PCP/Family) Primary Care Physician ABBEY CHAWLA MD Oct 29, 2022 10:08
[2022-10-29 10:16] LABS: BASOPHILS % (AUTO) 1 % (0-10); EOSINOPHILS # (AUTO) 0.4 10^3/uL (0.0-0.3); EOSINOPHILS % (AUTO) 7 % (0-10); HEMATOCRIT 29 % (35-52); HEMOGLOBIN 8.1 g/dL (11.5-16.0); LYMPHOCYTES % (AUTO) 17 % (12-44); MEAN CORPUSCULAR HEMOGLOBIN 28 pg (25-34); MEAN CORPUSCULAR HGB CONC 28 g/dL (32-36); MEAN CORPUSCULAR VOLUME 101 fL (80-99); MEAN PLATELET VOLUME 10.3 fL (9.0-12.2); MONOCYTES # (AUTO) 0.8 10^3/uL (0.0-1.0); MONOCYTES % (AUTO) 14 % (0-12); NEUTROPHILS # (AUTO) 3.3 10^3/uL (1.8-7.8); NEUTROPHILS % (AUTO) 61 % (42-75); PLATELET COUNT 143 10^3/uL (130-400); WHITE BLOOD COUNT 5.5 10^3/uL (4.3-11.0)
[2022-10-29 10:22] LABS: ABG BASE EXCESS -0.3 MMOL/L (-2.5-2.5); ABG OXYGEN SATURATION 100 % (94-100); ABG PCO2 39 MMHG (35-45); ABG PO2 90 MMHG (79-93); ABG TCO2 25.3 MMOL/L (21.0-31.0)
[2022-10-29 10:23] LABS: ALLENS TEST YES-POS; PATIENT TEMP 36.3; VENTILATOR NO
[2022-10-29 10:24] LABS: CHLORIDE 110 MMOL/L (98-107); SODIUM 142 MMOL/L (135-145)
[2022-10-29 10:26] LABS: CALCIUM 8.9 MG/DL (8.5-10.1)
[2022-10-29 10:27] LABS: GLUCOSE 108 MG/DL (70-105); TOTAL PROTEIN 6.2 GM/DL (6.4-8.2)
[2022-10-29 10:28] LABS: CARBON DIOXIDE 21 MMOL/L (21-32)
[2022-10-29 10:29] LABS: BACTERIA,URINE NEGATIVE /HPF; BILIRUBIN,URINE NEGATIVE (NEGATIVE); CLARITY,URINE CLEAR; COLOR,URINE YELLOW; GLUCOSE, URINE (UA) NEGATIVE (NEGATIVE); KETONES,URINE NEGATIVE (NEGATIVE); LEUKOCYTE ESTERASE ,URINE NEGATIVE (NEGATIVE); NITRITE,URINE NEGATIVE (NEGATIVE); PH,URINE 5.5 (5-9); PROTEIN,URINE NEGATIVE (NEGATIVE); WBC,URINE RARE /HPF
[2022-10-29 10:29] LABS: BILIRUBIN,TOTAL 0.9 MG/DL (0.1-1.0)
[2022-10-29 10:30] LABS: ALKALINE PHOSPHATASE 152 U/L (40-136)
[2022-10-29 10:31] LABS: CREATININE SERUM 2.16 MG/DL (0.60-1.30); GFR ESTIMATED 22
[2022-10-29 10:32] LABS: BUN/CREATININE RATIO 30
[2022-10-29 10:34] LABS: ALANINE AMINOTRANSFERASE 24 U/L (0-55)
--- NOTE | 2022-10-29 10:38 | Diagnostic Imaging Report ---
INDICATION: Decreased level of consciousness, altered mental status. Frontal chest obtained at 1031 a.m. and compared to 08/19/2022. There is cardiomegaly. There is no focal infiltrate or pneumothorax or pleural fluid. IMPRESSION: Cardiomegaly with no acute process in the chest. Dictated by: Dictated on workstation # [id number]
[2022-10-29 11:34] LABS: INR 4.4 (0.8-1.4); PROTHROMBIN TIME PATIENT 40.8 SEC (12.2-14.7)
--- NOTE | 2022-10-29 11:40 | History & Physical-Hospitalist ---
History of Present Illness HPI/Chief Complaint Patient is a 82-year-old female with past medical history of chronic kidney disease, recurrent UTIs, atrial fibrillation, hypertension, dementia, diabetes who presented to the emergency department due to altered mental status. She is unable to provide me any history and does wake up with significant stimuli but is otherwise quickly back to sleep. All history is obtained from the ER notes, [facility] notes, and speaking with her son. Her son states [facility] called him this morning and otherwise he was unsure how long she has been sick for. He was worried she had another bladder infection but had recently been started on a daily prophylactic antibiotic for that. Her UA was negative. She did test positive for COVID. She also has an elevated creatinine. Decision was made to admit. Source: family, [facility] records Date Seen 10/29/22 Time Seen by a Provider: 11:30 Attending Physician Tommy Osullivan MD PCP Admitting Physician: Attending Physician: Referring Physician Date of Admission Home Medications & Allergies Home Medications Reviewed patient Home Medication Reconciliation performed by pharmacy medication reconciliations tree and shrub technician and/or nursing. Patients Allergies have been reviewed. Allergies Allergies Coded Allergies Penicillins (Verified Allergy, Unknown, 05/27/22) Past Rkghzoq-Gpdnec-Taceey Hx Patient Social History Marrital Status: Employed/Student: retired Tobacco Use?: No Smoking Status: Unknown if Ever Smoked Substance use?: No Alcohol Use?: No Pt feels they are or have been: No Immunizations Up To Date First/Initial COVID19 Vaccinat: NO Second COVID19 Vaccination Suleiman: NO Tetanus Booster (TDap): Unknown Hepatitis A: No Hepatitis B: No Current Status status: No Advance Directives: Yes Primary Language: Gambian Preferred Spoken Language: Gambian Past Medical History Surgeries: Appendectomy, Hysterectomy, Nephrectomy, Orthopedic Atrial Fibrillation, Chronic Edema/Swelling, High Cholesterol, Hypertension, Irregular Heartbeat Dementia, Stroke Bladder Infection, Renal Failure Gastroesophageal Reflux Arthritis Diabetes, Non-Insulin dep Blood Disorders: Yes (ANEMIA; THROMBOCYTOPENIA) Family Medical History Reviewed Nursing Family Hx No Pertinent Family Hx Review of Systems Constitutional: see HPI Physical Exam Physical Exam Vital Signs Vital Signs - First Documented 10/29/22 10/29/22 09:43 12:32 Temp 36.3 Pulse 87 Resp 18 B/P (MAP) 131/71 Pulse Ox 94 O2 Delivery Room Air Capillary Refill : Less Than 3 Seconds Height, Weight, BMI Height: '" Weight: lbs. oz. kg; 45.00 BMI Method: General Appearance: Chronically ill, Obese Respiratory: Lungs Clear, No Respiratory Distress Cardiovascular: Irregularly Irregular Gastrointestinal: Normal Bowel Sounds, Non Tender, Soft Extremity: Pedal Edema, Swelling (TO ANKLES) Neurologic/Psychiatric: Other (arouses, does not answer questions, protecting airway) Results Results/Procedures Labs Laboratory Tests 10/29/22 09:59 10/30/22 04:22 Patient resulted labs reviewed. Imaging: Reviewed Imaging Report Imaging [facility], [place] NAME: RACHELE LANDAVERDE [facility] REC#: [id number] PT STATUS: REG ER : 1940 PHYSICIAN: ABBEY CHAWLA MD ADMIT DATE: 10/29/22/ER Draft Date of Exam:10/29/22 CHEST 1 VIEW, AP/PA ONLY INDICATION: Decreased level of consciousness, altered mental status. Frontal chest obtained at 1031 a.m. and compared to 08/19/2022. There is cardiomegaly. There is no focal infiltrate or pneumothorax or pleural fluid. IMPRESSION: Cardiomegaly with no acute process in the chest. Dictated on workstation # [id number] Dict: 10/29/22 1033 Trans: 10/29/22 1038 JONY [id number] Interpreted by: DIO BOOKER MD Electronically signed by: Assessment/Plan Admission Diagnosis AMS Admission Status: Inpatient Order (span 2 midnights) Reason for Inpatient Admission: see below Assessment and Plan AMS- mulitfactorial COVID19 Hepatic encephalopathy Dementia Ammonia 126 Will start Lactulose Concurrent CODE in ER so spoke with floor RN who will administer upstairs Spoke with pharmacy INR 4.4 so will hopefully be able to start Paxlovid tomorrow A fib in a fib but rate controlled Hold warfrin for INR of 4.4 Telemetry [place] on CKD 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 2.16 this AM Gentle IVF given history of CHF Hold ARB HTN T2DM AFib Obesity Continue home meds as able DVT ppx: Supratherapeutic INR Diagnosis/Problems Diagnosis/Problems (1) Altered mental status Status: Acute Qualifiers: Altered mental status type: somnolence Qualified Codes: R40.0 - Somnolence (2) Acute on chronic renal failure Status: Acute Qualifiers: Acute renal failure type: with acute renal cortical necrosis Chronic kidney disease stage: unspecified stage Qualified Codes: N17.1 - Acute kidney failure with acute cortical necrosis; N18.9 - Chronic kidney disease, unspecified (3) COVID-19 virus infection Status: Acute (4) [place] (acute kidney injury) (5) Chronic a-fib (6) Chronic atrial fibrillation Status: Acute (7) Dementia Status: Chronic (8) Non-insulin dependent type 2 diabetes mellitus Status: Chronic (9) Essential (primary) hypertension Status: Chronic (10) Chronic anemia Status: Acute (11) Hospitalization or health care facility admission within last 6 months Status: Acute TALAT SLAUGHTER MD Oct 29, 2022 11:40
[2022-10-29] MEDS ORDERED: MELATONIN 3 MG TABLET PO PRN (12:30)
[2022-10-29] MEDS ORDERED: NIRMATRELVIR/RITONAVIR (PAXLOVID) TABLET PO SCH (12:30)
[2022-10-29] MEDS ORDERED: CALCIUM CARBONATE 500 MG CHEW TABLET PO PRN (12:30)
[2022-10-29] MEDS ORDERED: guaiFENesin/CODEINE 10ML UDC PO PRN (12:30)
[2022-10-29] MEDS ORDERED: ANTACID SUSPENSION 30 ML UDC PO PRN (12:30)
[2022-10-29] MEDS ORDERED: ONDANSETRON INJECTION 4 MG/2 ML (SDV) IV PRN (12:30)
[2022-10-29] MEDS ORDERED: LACTULOSE SYRUP 10GM/15ML 30ML UDC PR NR (12:30)
[2022-10-29] MEDS ORDERED: ACETAMINOPHEN 325 MG TABLET PO PRN (12:30)
[2022-10-29] MEDS ORDERED: guaiFENesin SYRUP 100 MG/5 ML 10 ML PO PRN (12:30)
[2022-10-29] MEDS ORDERED: ACETAMINOPHEN 650 MG SUPPOSITORY PR PRN (12:30)
--- NOTE | 2022-10-29 12:47 | Physical Therapy Progress Note ---
Therapy Progress Note Patient just arrived to room. Nurse in agreement with hold at this time as patient has not been assessed. Will attempt PT evaluation at next available date. MINOO HARRIS PT Oct 29, 2022 12:47
[2022-10-29 12:59] VITALS: BP 112/77
[2022-10-29] MEDS: NS IV 1000 ML 1,000 ML IV SCH (13:03)
[2022-10-29 13:19] VITALS: BP 112/77
[2022-10-29] MEDS ORDERED: RT-ALBUTEROL HFA 8.5 GM INHALER IH PRN (13:30)
[2022-10-29] MEDS: inSUlin ASPART 1 UNIT/0.01 ML (PER UNIT) SC SCH ×2 (15:19→21:00)
[2022-10-29 15:21] VITALS: BP 122/99
[2022-10-29 20:00] VITALS: BP 117/89
[2022-10-30] VITALS (7 sets, daily range): BP systolic 120–149; BP diastolic 56–100
[2022-10-30] MEDS: NS IV 1000 ML 1,000 ML IV SCH ×2 (03:01→15:56)
[2022-10-30 04:36] LABS: HEMOGLOBIN 7.6 g/dL (11.5-16.0); MEAN PLATELET VOLUME 9.6 fL (9.0-12.2); WHITE BLOOD COUNT 5.4 10^3/uL (4.3-11.0)
[2022-10-30 04:49] LABS: INR 2.4 (0.8-1.4); PROTHROMBIN TIME PATIENT 25.7 SEC (12.2-14.7)
[2022-10-30 04:53] LABS: CALCIUM 8.8 MG/DL (8.5-10.1); CREATININE SERUM 1.88 MG/DL (0.60-1.30); POTASSIUM 4.2 MMOL/L (3.6-5.0)
[2022-10-30] MEDS: inSUlin ASPART 1 UNIT/0.01 ML (PER UNIT) SC SCH ×4 (05:47→21:03)
[2022-10-30] MEDS ORDERED: NIRMATRELVIR/RITONAVIR (PAXLOVID) TABLET PO SCH (08:00)
[2022-10-30] MEDS: meTOprolol TARTRATE (IR) 50 MG TABLET PO SCH ×2 (10:11→21:03)
[2022-10-30] MEDS: NIRMATRELVIR/RITONAVIR (PAXLOVID) TABLET PO SCH ×2 (10:11→21:45)
[2022-10-30] MEDS ORDERED: meTOprolol INJECTION 5 MG/5 ML VIAL IV PRN (10:15)
[2022-10-30] MEDS ORDERED: LACTULOSE 10 GM/15 ML 30 ML POUR BOTTLE FOR ENEMA PR NR (10:30)
--- NOTE | 2022-10-30 11:03 | Progress Note - Hospitalist ---
Subjective HPI/CC On Admission Date Seen by Provider: Oct 30, 2022 Patient is a 82-year-old female with past medical history of chronic kidney disease, recurrent UTIs, atrial fibrillation, hypertension, dementia, diabetes who presented to the emergency department due to altered mental status. She is unable to provide me any history and does wake up with significant stimuli but is otherwise quickly back to sleep. All history is obtained from the ER notes, shelter notes, and speaking with her son. Her son states shelter called him this morning and otherwise he was unsure how long she has been sick for. He was worried she had another bladder infection but had recently been started on a daily prophylactic antibiotic for that. Her UA was negative. She did test positive for COVID. She also has an elevated creatinine. Decision was made to admit. Subjective/Events-last exam Pt still quite altered. Did wake up and open eye and groaned when I gently shook her shoulder but otherwise quickly back to sleep. Focused Exam Lactate Level 10/29/22 09:59: Lactic Acid Level 1.76 Objective Exam Vital Signs Vital Signs Date Time Temp Pulse Resp B/P (MAP) Pulse Ox O2 Delivery O2 Flow Rate FiO2 10/30/22 08:30 36.5 120 11 149/83 (105) 99 Room Air Capillary Refill : Less Than 3 Seconds General Appearance: No Apparent Distress Respiratory: Lungs Clear Cardiovascular: Regular Rate, Rhythm, No Murmur Neurologic/Psychiatric: Disoriented, Other (still quite altered) Results/Procedures Lab Laboratory Tests 10/30/22 04:22 Patient resulted labs reviewed. 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 Down to 1.8 today Continue IVF until able to take PO Hold ARB HTN T2DM AFib Obesity Continue home meds as able DVT ppx: Already on Warfarin adn therapeutic Diagnosis/Problems Diagnosis/Problems (1) Altered mental status Status: Acute Qualifiers: Altered mental status type: somnolence Qualified Codes: R40.0 - Somnolence (2) Acute on chronic renal failure Status: Acute Qualifiers: Acute renal failure type: with acute renal cortical necrosis Chronic kidney disease stage: unspecified stage Qualified Codes: N17.1 - Acute kidney failure with acute cortical necrosis; N18.9 - Chronic kidney disease, unspecified (3) COVID-19 virus infection Status: Acute (4) [place] (acute kidney injury) (5) Chronic a-fib (6) Chronic atrial fibrillation Status: Acute (7) Dementia Status: Chronic (8) Non-insulin dependent type 2 diabetes mellitus Status: Chronic (9) Essential (primary) hypertension Status: Chronic (10) Chronic anemia Status: Acute (11) Hospitalization or health care facility admission within last 6 months Status: Acute TALAT SLAUGHTER MD Oct 30, 2022 11:03
--- NOTE | 2022-10-30 15:16 | Diagnostic Imaging Report ---
PROCEDURE: CT head without contrast. TECHNIQUE: Multiple contiguous axial images were obtained through the brain without the use of intravenous contrast. Auto Exposure Controls were utilized during the CT exam to meet ALARA standards for radiation dose reduction. DATE: October 30, 2022. COMPARISON: CT head August 09, 2022. INDICATION: 82-year-old female, altered mental status, Covid positive. FINDINGS: There are areas of low-attenuation in the periventricular and subcortical white matter which are nonspecific but may reflect findings of chronic small vessel ischemic disease. The ventricles and cerebral spinal fluid spaces are of normal size and configuration for the patient's age. There is no mass effect or midline shift. There is no acute intracranial hemorrhage. There is no abnormal extra-axial fluid collection. Frontal sinuses are hypoplastic. Additional visualized portions of the paranasal sinuses, mastoid air cells and middle ears are well-aerated. IMPRESSION: 1. No identified acute intracranial abnormality. 2. Probable findings of chronic small vessel ischemic disease. Dictated by: Dictated on workstation # [id number]
[2022-10-31] VITALS (7 sets, daily range): BP systolic 123–142; BP diastolic 56–85
[2022-10-31 04:49] LABS: MEAN PLATELET VOLUME 10.5 fL (9.0-12.2); WHITE BLOOD COUNT 5.4 10^3/uL (4.3-11.0)
[2022-10-31 04:52] LABS: INR 1.9 (0.8-1.4); PROTHROMBIN TIME PATIENT 21.4 SEC (12.2-14.7)
[2022-10-31 05:07] LABS: CALCIUM 8.8 MG/DL (8.5-10.1); CREATININE SERUM 1.66 MG/DL (0.60-1.30); POTASSIUM 3.9 MMOL/L (3.6-5.0)
[2022-10-31] MEDS: inSUlin ASPART 1 UNIT/0.01 ML (PER UNIT) SC SCH ×4 (05:16→20:58)
[2022-10-31] MEDS ORDERED: 1/2 NS IV SOLUTION 1000 ML 1,000 ML IV ONE (05:40)
[2022-10-31] MEDS ORDERED: 1/2 NS IV SOLUTION 1000 ML 1,000 ML IV SCH (05:45)
--- NOTE | 2022-10-31 08:16 | Diagnostic Imaging Report ---
HISTORY: Check NG tube placement. TECHNIQUE: Frontal view of the chest COMPARISON: 10/29/2022 FINDINGS: Lung volumes are mildly low. No consolidation is seen. There is no pleural effusion or pneumothorax. The cardiac silhouette is stable in size. There is an enteric tube which crosses the [id number] and the sidehole projects over the stomach. IMPRESSION: 1. The enteric tube crosses the [id number], and appears to project over the stomach. Dictated by: Dictated on workstation # [id number]
[2022-10-31] MEDS: NIRMATRELVIR/RITONAVIR (PAXLOVID) TABLET PO SCH ×2 (08:38→20:47)
[2022-10-31] MEDS: meTOprolol TARTRATE (IR) 50 MG TABLET PO SCH ×2 (08:39→20:47)
[2022-10-31] MEDS: D5W 1,000 ML IV SOLUTION 1,000 ML IV SCH ×2 (08:40→20:55)
--- NOTE | 2022-10-31 10:02 | Physical Therapy Evaluation ---
PT Evaluation-General Medical Diagnosis Admission Date Oct 29, 2022 at 12:26 Medical Diagnosis: Covid Onset Date: Oct 29, 2022 Therapy Diagnosis Therapy Diagnosis: debility Precautions Precautions/Isolations: Airborne Isolation, Fall Prevention, Pressure Ulcer Weight Bear Status Right Lower Extremity: Right Weight Bearing/Tolerated Left Lower Extremity: Left Weight Bearing/Tolerated Referral Physician: Kareen Reason for Referral: Evaluation/Treatment Medical History Pertinent Medical History: Atrial Fib, CVA, Dementia, Heart Failure, HTN, Renal Insufficiency Current History EMS from [place] due to AMS Reviewed History: Yes Social History Home: [facility] Prior Prior Level of Function SCALE: Activities may be completed with or without assistive devices. 6-Ctddkwarqc-aiaesba completes the activity by him/herself with no assistance from a helper. 5-Set-up or Clean-up Assistance-helper sets up or cleans up; patient completes activity. [place] assists only prior to or following the activity. 4-Supervision or Touching Assistance-helper provides verbal cues and/or touching/steadying and/or contact guard assistance as patient completes activity. Assistance may be provided throughout the activity or intermittently. 3-Partial/Moderate Assistance-helper does LESS THAN HALF the effort. [place] lifts, holds or supports trunk or limbs, but provides less than half the effort. 2-Substantial/Maximal Assistance-helper does MORE THAN HALF the effort. [place] lifts or holds trunk or limbs and provides more than half the effort. 3-Kmqprgiyn-tgpcub does ALL the effort. Patient does none of the effort to complete the activity. Or, the assistance of 2 or more helpers is required for the patient to complete the activity. If activity was not attempted, code reason: 7-Patient Refused. 9-Not Applicable-not attempted and the patient did not perform the activity before the current illness, exacerbation or injury. 10-Not Attempted due to Environmental Limitations-(lack of equipment, weather restraints, etc.). 88-Not Attempted due to Medical Conditions or Safety Concerns. Bed Mobility: 1 Transfers (B,C,W/C): 1 per son PT Evaluation-Current Subjective patient would open eyes occasionally during session ROM/Strength ROM Lower Extremities bilateral LE limited due to edema and weakness Strength Lower Extremities NT Integumentary/Posture Bladder Incontinence: Melton Cath Neuromuscular (Tone, Coordination, Reflexes) severely diminished/does not move Sensory Vision: Unable to Assess Hearing: Unable to Assess Transfers Roll Left to Right (QC): 1 (x 2) Gait Does the Patient Walk?: No and Walking Goal NOT indicated Assessment/Needs Per family , patient is at dependent PLOF with all gross motor skills. No skilled therapy indicated at this time. Rehab Potential: Poor PT Plan Treatment/Plan Treatment Plan: Discontinue PT Treatment Duration: Oct 31, 2022 Frequency: 1 time per week Estimated Hrs Per Day: .25 hour per day Time Time In: 850 Time Out: 859 DATE: Oct 31, 2022 Total Billed Treatment Time: 9 Total Billed Treatment 1 visit [facility] 9 min HANS BEARD PT Oct 31, 2022 10:02
--- NOTE | 2022-10-31 10:54 | Occ Therapy Progress Note ---
Therapy Progress Note PER RN and PT, patient is not appropriate to OT at this time.OT will monitor for appropriateness EDGARD DOE OT Oct 31, 2022 10:54
[2022-10-31] MEDS ORDERED: ACET325T38 PO (11:12)
[2022-10-31] MEDS ORDERED: NITR50CA4 PO (11:13)
[2022-10-31] MEDS ORDERED: ALLO100T PO (11:36)
[2022-10-31] MEDS ORDERED: FERR-65 PO (11:37)
[2022-10-31] MEDS ORDERED: ATOR40TA70 PO (11:37)
[2022-10-31] MEDS ORDERED: FURO40TA4 PO (11:38)
[2022-10-31] MEDS ORDERED: MAGN250T13 PO (11:39)
[2022-10-31] MEDS ORDERED: LORA10TA7 PO (11:39)
[2022-10-31] MEDS ORDERED: POLY17PO6 PO (11:41)
[2022-10-31] MEDS ORDERED: POTA-330 PO (11:41)
[2022-10-31] MEDS ORDERED: RIVA20TA2 PO (11:42)
[2022-10-31] MEDS ORDERED: METO-333 PO (11:43)
[2022-10-31] MEDS ORDERED: MEMA10TA2 PO (11:43)
[2022-10-31] MEDS: LACTULOSE SYRUP 10GM/15ML 30ML UDC PO SCH ×4 (11:51→23:45)
--- NOTE | 2022-10-31 16:45 | Progress Note - Hospitalist ---
Subjective HPI/CC On Admission Date Seen by Provider: Oct 31, 2022 Time Seen by Provider: 10:45 Patient is a 82-year-old female with past medical history of chronic kidney disease, recurrent UTIs, atrial fibrillation, hypertension, dementia, diabetes who presented to the emergency department due to altered mental status. She is unable to provide me any history and does wake up with significant stimuli but is otherwise quickly back to sleep. All history is obtained from the ER notes, [facility] notes, and speaking with her son. Her son states [facility] called him this morning and otherwise he was unsure how long she has been sick for. He was worried she had another bladder infection but had recently been started on a daily prophylactic antibiotic for that. Her UA was negative. She did test positive for COVID. She also has an elevated creatinine. Decision was made to admit. Subjective/Events-last exam She is lethargic. She wakes up but does not speak. Focused Exam Lactate Level 10/29/22 09:59: Lactic Acid Level 1.76 Objective Exam Vital Signs Vital Signs Date Time Temp Pulse Resp B/P (MAP) Pulse Ox O2 Delivery O2 Flow Rate FiO2 10/31/22 15:41 36.4 79 16 133/78 (96) 98 Room Air Capillary Refill : Less Than 3 Seconds General Appearance: No Apparent Distress, Obese Respiratory: Lungs Clear, No Respiratory Distress Cardiovascular: Regular Rate, Rhythm, No Murmur Gastrointestinal: Normal Bowel Sounds, Soft Extremity: Normal Inspection, Pedal Edema Neurologic/Psychiatric: Aphasia, Disoriented, Other (lethargic) Skin: Normal Color, Warm/Dry Results/Procedures Lab Laboratory Tests 10/31/22 04:23 Patient resulted labs reviewed. Imaging: Reviewed Imaging Report Assessment/Plan Assessment and Plan Assess & Plan/Chief Complaint Acute metabolic encephalopathy Hepatic encephalopathy COVID19 Dementia Ammonia elevated Begin Lactulose via NG Started on Paxlovid A fib Metoprolol INR 1.9 Hold Coumadin Anemia Hgb 7, trending down Possible GI bleed Occult blood ordered Iron studies, B12, folate pending IV PPI [place] on CKD Hypernatremia Cr improved, near baseline Switch fluids to D5W, gentle hydration HTN T2DM AFib Obesity Continue home meds as able DVT ppx: held with anemia and possible GI bleed Diagnosis/Problems Diagnosis/Problems (1) Acute metabolic encephalopathy Status: Acute (2) Hepatic encephalopathy Status: Acute (3) COVID-19 Status: Acute (4) Acute kidney injury superimposed on chronic kidney disease Status: Acute (5) Hypernatremia Status: Acute (6) Anemia Status: Acute (7) Afib Status: Chronic (8) On Coumadin for atrial fibrillation Status: Chronic (9) Dementia Status: Chronic (10) Obesity Status: Chronic (11) Debility Status: Acute VANDANA STOVALL MD Oct 31, 2022 16:45
[2022-11-01] MEDS: LACTULOSE SYRUP 10GM/15ML 30ML UDC PO SCH ×5 (03:40→20:46)
[2022-11-01 03:41] VITALS: BP 142/70
[2022-11-01 04:19] LABS: HEMOGLOBIN 7.1 g/dL (11.5-16.0); MEAN PLATELET VOLUME 11.1 fL (9.0-12.2); WHITE BLOOD COUNT 6.4 10^3/uL (4.3-11.0)
[2022-11-01 04:33] LABS: INR 1.7 (0.8-1.4); PROTHROMBIN TIME PATIENT 20.2 SEC (12.2-14.7)
[2022-11-01 04:40] LABS: CALCIUM 8.4 MG/DL (8.5-10.1); CREATININE SERUM 1.63 MG/DL (0.60-1.30); POTASSIUM 3.8 MMOL/L (3.6-5.0)
[2022-11-01] MEDS: inSUlin ASPART 1 UNIT/0.01 ML (PER UNIT) SC SCH ×4 (04:55→20:49)
[2022-11-01] MEDS: meTOprolol TARTRATE (IR) 50 MG TABLET PO SCH ×2 (08:33→20:46)
[2022-11-01] MEDS: NIRMATRELVIR/RITONAVIR (PAXLOVID) TABLET PO SCH ×2 (08:35→20:46)
[2022-11-01 08:49] VITALS: BP 113/57
[2022-11-01] MEDS: D5W 1,000 ML IV SOLUTION 1,000 ML IV SCH ×2 (08:57→20:46)
[2022-11-01 11:58] VITALS: BP 108/65
--- NOTE | 2022-11-01 12:42 | Progress Note - Hospitalist ---
DANIELA HASSAN 11/01/22 1242: Subjective HPI/CC On Admission Date Seen by Provider: Nov 01, 2022 Time Seen by Provider: 09:15 Patient is a 82-year-old female with past medical history of chronic kidney disease, recurrent UTIs, atrial fibrillation, hypertension, dementia, diabetes who presented to the emergency department due to altered mental status. She is unable to provide me any history and does wake up with significant stimuli but is otherwise quickly back to sleep. All history is obtained from the ER notes, alf notes, and speaking with her son. Her son states alf called him this morning and otherwise he was unsure how long she has been sick for. He was worried she had another bladder infection but had recently been started on a daily prophylactic antibiotic for that. Her UA was negative. She did test positive for COVID. She also has an elevated creatinine. Decision was made to admit. Subjective/Events-last exam Patient is doing better today but is still lethargic. She woke up and spoke today, she was able to tell us her name and say good morning and kept her eyes open more. She had one BM since increasing Lactulose yesterday. No ROS possible. Objective Exam Vital Signs Vital Signs Date Time Temp Pulse Resp B/P (MAP) Pulse Ox O2 Delivery O2 Flow Rate FiO2 11/01/22 11:58 36.6 78 12 108/65 (79) 97 Room Air Capillary Refill : Less Than 3 Seconds General Appearance: No Apparent Distress, Obese Respiratory: Lungs Clear, No Accessory Muscle Use, No Respiratory Distress Cardiovascular: Regular Rate, Rhythm, Systolic Murmur Gastrointestinal: Normal Bowel Sounds, Soft; No Distended Extremity: Normal Capillary Refill, Normal Inspection, Pedal Edema Neurologic/Psychiatric: Disoriented, Other (lethargic, minimal talking) Skin: Normal Color, Warm/Dry Results/Procedures Lab Laboratory Tests 11/01/22 03:47 Patient resulted labs reviewed. Imaging: Reviewed Imaging Report Assessment/Plan Assessment and Plan Assess & Plan/Chief Complaint acute metabolic encephalopathy hepatic encephalopathy COVID 19 Dementia elevated ammonia Continue Lactulose via NG, switch to enema if no increase in bowel movements Liver US A fib Metoprolol INR 1.7 Hold Coumadin Anemia Hgb 7.1 Possible GI bleed Occult blood ordered [place] on CKD hypernatremia Cr improved 1.63, near baseline HTN T2DM Obesity continue home meds as able DVT ppx: held with anemia and possible GI bleed VANDANA STOVALL MD 11/01/22 1600: Subjective HPI/CC On Admission Time Seen by Provider: 11:05 Assessment/Plan Assessment and Plan Assess & Plan/Chief Complaint Encephalopathy improving. Continue Lactulose. Begin Venofer for iron deficiency anemia. Obtain liver ultrasound. Diagnosis/Problems Diagnosis/Problems (1) Hepatic encephalopathy Status: Acute (2) Acute metabolic encephalopathy Status: Acute (3) Acute kidney injury superimposed on chronic kidney disease Status: Acute (4) COVID-19 Status: Acute (5) Afib Status: Chronic (6) Anemia Status: Acute (7) Obesity Status: Chronic Supervisory-Addendum Brief Verification & Attestation Participated in pt care: history, MDM, physical Personally performed: exam, history, MDM, supervision of care Care discussed with: Medical Student Procedures: n/a A medical student performed and documented this service in my presence. I reviewed and verified all information documented by the medical student and made modifications to such information, when appropriate. I personally performed the physical exam and medical decision making. DANIELA HASSAN Nov 01, 2022 12:42 VANDANA STOVALL MD Nov 01, 2022 16:00
[2022-11-01] MEDS ORDERED: IRON SUCROSE 200 MG/10 ML VIAL IV NR (16:30)
[2022-11-01 16:38] VITALS: BP 123/55
--- NOTE | 2022-11-01 16:45 | Diagnostic Imaging Report ---
INDICATION: Cirrhosis. TECHNIQUE: Ultrasound of the liver and right upper quadrant was performed in the routine fashion. FINDINGS: The liver shows no focal lesion. The gallbladder shows no stones or significant wall thickening. The common duct is not well seen due to overlying gas. The pancreas appears unremarkable to the extent seen but visualization was limited. The visualized portions of the aorta and IVC are normal. The right kidney is not well seen due to overlying gas. IMPRESSION: Limited study. No definite focal liver lesion or gallbladder pathology. Dictated by: Dictated on workstation # [id number]
[2022-11-01 20:00] VITALS: BP 133/81
[2022-11-02] VITALS (7 sets, daily range): BP systolic 121–132; BP diastolic 55–80
[2022-11-02] MEDS: LACTULOSE SYRUP 10GM/15ML 30ML UDC PO SCH ×6 (00:09→20:43)
[2022-11-02 05:02] LABS: HEMOGLOBIN 7.1 g/dL (11.5-16.0); MEAN PLATELET VOLUME 10.4 fL (9.0-12.2); WHITE BLOOD COUNT 6.7 10^3/uL (4.3-11.0)
[2022-11-02 05:12] LABS: INR 1.9 (0.8-1.4); POTASSIUM 3.4 MMOL/L (3.6-5.0); PROTHROMBIN TIME PATIENT 21.7 SEC (12.2-14.7)
[2022-11-02 05:13] LABS: CALCIUM 8.2 MG/DL (8.5-10.1)
[2022-11-02] MEDS: inSUlin ASPART 1 UNIT/0.01 ML (PER UNIT) SC SCH ×4 (05:16→20:43)
[2022-11-02 05:17] LABS: CREATININE SERUM 1.49 MG/DL (0.60-1.30)
[2022-11-02] MEDS: meTOprolol TARTRATE (IR) 50 MG TABLET PO SCH ×2 (09:05→20:43)
[2022-11-02] MEDS: NIRMATRELVIR/RITONAVIR (PAXLOVID) TABLET PO SCH ×2 (09:09→20:43)
[2022-11-02] MEDS: D5W 1,000 ML IV SOLUTION 1,000 ML IV SCH (10:24)
--- NOTE | 2022-11-02 12:38 | Progress Note - Hospitalist ---
DANIELA HASSAN 11/02/22 1238: Subjective HPI/CC On Admission Date Seen by Provider: Nov 02, 2022 Time Seen by Provider: 09:20 Patient is a 82-year-old female with past medical history of chronic kidney disease, recurrent UTIs, atrial fibrillation, hypertension, dementia, diabetes who presented to the emergency department due to altered mental status. She is unable to provide me any history and does wake up with significant stimuli but is otherwise quickly back to sleep. All history is obtained from the ER notes, [facility] notes, and speaking with her son. Her son states [facility] called him this morning and otherwise he was unsure how long she has been sick for. He was worried she had another bladder infection but had recently been started on a daily prophylactic antibiotic for that. Her UA was negative. She did test positive for COVID. She also has an elevated creatinine. Decision was made to admit. Subjective/Events-last exam Patient is doing slightly better today, she wakes up to the door opening and is more alert. She is still lethargic and does still fall asleep during the exam and while being asked questions. She knows her name and the year but not the month or where she is. Objective Exam Vital Signs Vital Signs Date Time Temp Pulse Resp B/P (MAP) Pulse Ox O2 Delivery O2 Flow Rate FiO2 11/02/22 12:03 65 11/02/22 08:00 98 Room Air 11/02/22 08:00 36.0 11 131/74 (94) Capillary Refill : Less Than 3 Seconds General Appearance: No Apparent Distress, Obese Respiratory: Chest Non Tender, No Accessory Muscle Use, No Respiratory Distress Cardiovascular: Regular Rate, Rhythm Gastrointestinal: Normal Bowel Sounds, Non Tender, Soft Extremity: Pedal Edema Neurologic/Psychiatric: Alert, Disoriented (Patient knows name and year. Doesn't know month or where she is.), Other (lethargic) Skin: Normal Color, Warm/Dry Results/Procedures Lab Laboratory Tests 11/02/22 04:50 Patient resulted labs reviewed. Imaging: Reviewed Imaging Report Assessment/Plan Assessment and Plan Assess & Plan/Chief Complaint acute metabolic encephalopathy hepatic encephalopathy COVID 19 Dementia encephalopathy improving elevated ammonia Continue Lactulose via NG to increase BM Liver US- no definite liver or gallbladder pathology A fib Metoprolol INR 1.9 Hold Coumadin Anemia Hgb 7.1 Positive fecal occult blood test Venofer [place] on CKD hypernatremia Cr improved 1.49, near baseline HTN T2DM Obesity continue home meds as able DVT ppx: held with anemia and GI bleed VANDANA STOVALL MD 11/02/22 1750: Subjective HPI/CC On Admission Time Seen by Provider: 10:00 Assessment/Plan Assessment and Plan Assess & Plan/Chief Complaint Mentation improved slightly. Continue Lactulose. Diagnosis/Problems Diagnosis/Problems (1) Hepatic encephalopathy Status: Acute (2) COVID-19 Status: Acute (3) Acute kidney injury superimposed on chronic kidney disease Status: Acute (4) On Coumadin for atrial fibrillation Status: Chronic (5) Afib Status: Chronic (6) Obesity Status: Chronic (7) Debility Status: Acute (8) Anemia Status: Acute Supervisory-Addendum Brief Verification & Attestation Participated in pt care: history, MDM, physical Personally performed: exam, history, MDM, supervision of care Care discussed with: Medical Student Procedures: n/a A medical student performed and documented this service in my presence. I reviewed and verified all information documented by the medical student and made modifications to such information, when appropriate. I personally performed the physical exam and medical decision making. DANIELA HASSAN Nov 02, 2022 12:38 VANDANA STOVALL MD Nov 02, 2022 17:50
[2022-11-03] VITALS (7 sets, daily range): BP systolic 108–153; BP diastolic 58–82
[2022-11-03] MEDS: LACTULOSE SYRUP 10GM/15ML 30ML UDC PO SCH ×6 (00:02→22:16)
[2022-11-03] MEDS: D5W 1,000 ML IV SOLUTION 1,000 ML IV SCH ×2 (00:03→15:07)
[2022-11-03 06:06] LABS: HEMOGLOBIN 7.4 g/dL (11.5-16.0)
[2022-11-03 06:07] LABS: INR 1.7 (0.8-1.4); PROTHROMBIN TIME PATIENT 19.7 SEC (12.2-14.7)
[2022-11-03 06:08] LABS: WHITE BLOOD COUNT 7.6 10^3/uL (4.3-11.0)
[2022-11-03 06:29] LABS: POTASSIUM 3.2 MMOL/L (3.6-5.0)
[2022-11-03 06:30] LABS: CALCIUM 8.1 MG/DL (8.5-10.1)
[2022-11-03] MEDS: inSUlin ASPART 1 UNIT/0.01 ML (PER UNIT) SC SCH ×4 (06:33→21:00)
[2022-11-03 06:34] LABS: CREATININE SERUM 1.41 MG/DL (0.60-1.30)
[2022-11-03] MEDS: NIRMATRELVIR/RITONAVIR (PAXLOVID) TABLET PO SCH ×2 (07:36→22:16)
[2022-11-03] MEDS: meTOprolol TARTRATE (IR) 50 MG TABLET PO SCH ×2 (07:45→22:16)
[2022-11-03] MEDS ORDERED: IRON SUCROSE 200 MG/10 ML VIAL IV SCH (09:00)
--- NOTE | 2022-11-03 12:03 | Progress Note - Hospitalist ---
DANIELA HASSAN 11/03/22 1203: Subjective HPI/CC On Admission Date Seen by Provider: Nov 03, 2022 Time Seen by Provider: 09:25 Patient is a 82-year-old female with past medical history of chronic kidney disease, recurrent UTIs, atrial fibrillation, hypertension, dementia, diabetes who presented to the emergency department due to altered mental status. She is unable to provide me any history and does wake up with significant stimuli but is otherwise quickly back to sleep. All history is obtained from the ER notes, senior care notes, and speaking with her son. Her son states senior care called him this morning and otherwise he was unsure how long she has been sick for. He was worried she had another bladder infection but had recently been started on a daily prophylactic antibiotic for that. Her UA was negative. She did test positive for COVID. She also has an elevated creatinine. Decision was made to admit. Subjective/Events-last exam Patient is doing slightly better than yesterday. Mentation is slightly improved she knows her name, month and year, and that she is in the hospital. She keeps her eyes open and stays awake for the majority of the encounter but still falls asleep occasionally. RN states that she was having bowel movements frequently last night. Objective Exam Vital Signs Vital Signs Date Time Temp Pulse Resp B/P (MAP) Pulse Ox O2 Delivery O2 Flow Rate FiO2 11/03/22 08:00 98 Room Air 11/03/22 08:00 36.1 69 12 137/71 (84) Capillary Refill : Less Than 3 Seconds General Appearance: No Apparent Distress, Obese Respiratory: Chest Non Tender, No Accessory Muscle Use, No Respiratory Distress, Rhonci Cardiovascular: Regular Rate, Rhythm Gastrointestinal: Non Tender, Soft, Abnormal Bowel Sounds (hyperactive); No Distended, No Guarding Neurologic/Psychiatric: Alert, Disoriented (knows she is in hospital but unsure of where), Other (lethargic) Skin: Normal Color, Warm/Dry Results/Procedures Lab Laboratory Tests 11/03/22 05:40 Patient resulted labs reviewed. Imaging: Reviewed Imaging Report Assessment/Plan Assessment and Plan Assess & Plan/Chief Complaint acute metabolic encephalopathy hepatic encephalopathy COVID 19 Dementia encephalopathy improving elevated ammonia Continue Lactulose via NG Liver US- no definite liver or gallbladder pathology A fib Metoprolol Resume Xarelto stop regular INR Anemia Hgb 7.1 Positive fecal occult blood test Venofer [place] on CKD hypernatremia Cr improved 1.41, near baseline HTN T2DM Obesity continue home meds as able VANDANA STOVALL MD 11/03/22 1540: Subjective HPI/CC On Admission Time Seen by Provider: 10:10 Assessment/Plan Assessment and Plan Assess & Plan/Chief Complaint Continue Lactulose. Mentation slowly improving. Continue Venofer, anemia stable. Renal function slowly improving. Diagnosis/Problems Diagnosis/Problems (1) Hepatic encephalopathy Status: Acute (2) COVID-19 Status: Acute (3) Afib Status: Chronic (4) On Coumadin for atrial fibrillation Status: Chronic (5) Acute kidney injury superimposed on chronic kidney disease Status: Acute (6) Anemia Status: Acute (7) Obesity Status: Chronic (8) Debility Status: Acute Supervisory-Addendum Brief Verification & Attestation Participated in pt care: history, MDM, physical Personally performed: exam, history, MDM, supervision of care Care discussed with: Medical Student Procedures: n/a A medical student performed and documented this service in my presence. I reviewed and verified all information documented by the medical student and made modifications to such information, when appropriate. I personally performed the physical exam and medical decision making. DANIELA HASSAN Nov 03, 2022 12:03 VANDANA STOVALL MD Nov 03, 2022 15:40
[2022-11-03] MEDS ORDERED: RIVAROXABAN 15 MG TABLET PO SCH (17:00)
[2022-11-03] MEDS ORDERED: RIVAROXABAN 20 MG TABLET PO SCH (18:00)
[2022-11-04] MEDS: LACTULOSE SYRUP 10GM/15ML 30ML UDC PO SCH ×3 (01:17→10:04)
[2022-11-04 03:47] VITALS: BP 134/74
[2022-11-04] MEDS: D5W 1,000 ML IV SOLUTION 1,000 ML IV SCH (04:30)
[2022-11-04 05:40] LABS: HEMOGLOBIN 7.9 g/dL (11.5-16.0); MEAN PLATELET VOLUME 11.7 fL (9.0-12.2); WHITE BLOOD COUNT 10.7 10^3/uL (4.3-11.0)
[2022-11-04 06:00] LABS: CREATININE SERUM 1.38 MG/DL (0.60-1.30); POTASSIUM 3.3 MMOL/L (3.6-5.0)
[2022-11-04] MEDS: inSUlin ASPART 1 UNIT/0.01 ML (PER UNIT) SC SCH ×2 (06:49→10:07)
[2022-11-04 08:00] VITALS: BP 137/65
--- NOTE | 2022-11-04 08:41 | Occupational Therapy Eval ---
OT Evaluation-General/PLF Medical Diagnosis Admission Date Oct 29, 2022 at 12:26 Medical Diagnosis: Covid Onset Date: Oct 29, 2022 Therapy Diagnosis Therapy Diagnosis: debility Precautions Precautions/Isolations: Droplet Isolation, Standard Precautions Referral Physician: Kareen Referral Reason: Evaluation/Treatment Medical History Pertinent Medical History: Atrial Fib, CVA, Dementia, Heart Failure, HTN, Renal Insufficiency Reviewed History: Yes Social History Home: Detention ADL-Prior Level of Function SCALE: Activities may be completed with or without assistive devices. 7-Gkvepiriws-vxwcmlk completes the activity by him/herself with no assistance from a helper. 5-Set-up or Clean-up Assistance-helper sets up or cleans up; patient completes activity. [place] assists only prior to or following the activity. 4-Supervision or Touching Assistance-helper provides verbal cues and/or touching/steadying and/or contact guard assistance as patient completes activity. Assistance may be provided throughout the activity or intermittently. 3-Partial/Moderate Assistance-helper does LESS THAN HALF the effort. [place] lifts, holds or supports trunk or limbs, but provides less than half the effort. 2-Substantial/Maximal Assistance-helper does MORE THAN HALF the effort. [place] lifts or holds trunk or limbs and provides more than half the effort. 4-Rwtcceyal-ttwmzx does ALL the effort. Patient does none of the effort to complete the activity. Or, the assistance of 2 or more helpers is required for the patient to complete the activity. If activity was not attempted, code reason: 7-Patient Refused. 9-Not Applicable-not attempted and the patient did not perform the activity before the current illness, exacerbation or injury. 10-Not Attempted due to Environmental Limitations-(lack of equipment, weather restraints, etc.). 88-Not Attempted due to Medical Conditions or Safety Concerns. Self Care: Dependent Functional Cognition: Dependent Drive Self: No OT Current Status Subjective Non verbal, opens eyes briefly, no other responses during evaluation. On arrival pateitn is BM incont. Patient does not arouse during hygiene tasks or rolling, vitals taken at time of evaluation Mental Status/Objective Patient Orientation: Non-Verbal/Aphasic, Eyes Open (briefly) Attachments: [place] Catheter, IV, Oxygen Current Upper Extremity ROM PROM WFLS, no active participation Upper Extremity Coordination NA Upper Extremity Sensation NA Upper Extremity Strength NA ADL-Treatment ADL-Current Unable to arouse patient for participation Eating (QC): 88 Oral Hygiene (QC): 88 Shower/Bathe Self (QC): 88 Upper Body Dressing (QC): 88 Lower Body Dressing (QC): 88 On/Off Footwear (QC): 88 (following BM hygiene, offload boots applied and patietn positinoed on right side) Toileting Hygiene (QC): 1 (depentant 3 person asssit for hygiene and rolling, patient is non responsive during session) Education OT Patient Education: Other (no education to patient d/t decreased awareness) Response to Teaching: Unable to Comprehend OT Senior Care Goals Bobj Developer Goals 1=Demonstrate adherence to instructed precautions during ADL tasks. 2=Patient will verbalize/demonstrate understanding of assistive devices/modifications for ADL. 3=Patient will improve strength/tolerance for activity to enable patient to perform ADL's. OT Education/Plan Problem List/Assessment Assessment: Decreased Activ Tolerance, Decreased UE Strength, Dependent Transfers, Impaired Bed Mobility, Impaired Cognition, Impaired Coordination, Impaired Funct Balance, Impaired Self-Care Skills, Restricted Funct UE ROM, Visual-Perceptual Deficit Discharge Recommendations Plan/Recommendations: Discontinue OT Treatment Plan/Plan of Care Patient would benefit from OT for education, treatment and training to promote independence in ADL's, mobility, safety and/or upper extremity function for ADL's. Plan of Care: OTHER (eval only) Treatment Duration: Nov 04, 2022 Frequency: 1 time per week Estimated Hrs Per Day: .25 hour per day Agreement: No (patient unable to respond) Rehab Potential: Poor Time Start Time: 08:00 Stop Time: 08:12 DATE: Nov 04, 2022 Total Time Billed (hr/min): 12 Billed Treatment Time EVM 12 min EDGARD DOE OT Nov 04, 2022 08:41
--- NOTE | 2022-11-04 08:42 | Physical Therapy Evaluation ---
PT Evaluation-General Medical Diagnosis Admission Date Oct 29, 2022 at 12:26 Medical Diagnosis: Covid Onset Date: Oct 29, 2022 Therapy Diagnosis Therapy Diagnosis: debility Precautions Precautions/Isolations: Standard Precautions Weight Bear Status Right Lower Extremity: Right Weight Bearing/Tolerated Left Lower Extremity: Left Weight Bearing/Tolerated Referral Physician: Tim Reason for Referral: Evaluation/Treatment Medical History Pertinent Medical History: Atrial Fib, CVA, Dementia, Heart Failure, HTN, Renal Insufficiency Reviewed History: Yes Social History Home: Prison Prior Prior Level of Function SCALE: Activities may be completed with or without assistive devices. 8-Nofruefrkg-qyojato completes the activity by him/herself with no assistance from a helper. 5-Set-up or Clean-up Assistance-helper sets up or cleans up; patient completes activity. [place] assists only prior to or following the activity. 4-Supervision or Touching Assistance-helper provides verbal cues and/or touching/steadying and/or contact guard assistance as patient completes activity. Assistance may be provided throughout the activity or intermittently. 3-Partial/Moderate Assistance-helper does LESS THAN HALF the effort. [place] lifts, holds or supports trunk or limbs, but provides less than half the effort. 2-Substantial/Maximal Assistance-helper does MORE THAN HALF the effort. [place] lifts or holds trunk or limbs and provides more than half the effort. 0-[id number]-opecbs does ALL the effort. Patient does none of the effort to complete the activity. Or, the assistance of 2 or more helpers is required for the patient to complete the activity. If activity was not attempted, code reason: 7-Patient Refused. 9-Not Applicable-not attempted and the patient did not perform the activity before the current illness, exacerbation or injury. 10-Not Attempted due to Environmental Limitations-(lack of equipment, weather restraints, etc.). 88-Not Attempted due to Medical Conditions or Safety Concerns. Bed Mobility: 1 Transfers (B,C,W/C): 1 Gait: 9 Stairs: 9 Wheelchair Mobility: 1 Indoor Mobility (Ambulation): Dependent PT Evaluation-Current Objective Patient Orientation: Eyes Open (occasionally) Attachments: NG Tube, Melton Catheter, IV ROM/Strength ROM Lower Extremities bilateral LE limited due to edema Strength Lower Extremities NT due to patient unable to actively participate with therapy Integumentary/Posture Bowel Incontinence: Yes Bladder Incontinence: Melton Cath Neuromuscular (Tone, Coordination, Reflexes) severely diminished with all/not moving any extremity Sensory Vision: Unable to Assess Hearing: Unable to Assess Transfers Roll Left to Right (QC): 1 (x 2) Assessment/Needs PT evaluated patient, again, per physician order. Patient continues to be minimally responsive and does not or is not able to actively participate with skilled PT. No skilled PT indicated at this time. Rehab Potential: Poor PT Plan Treatment/Plan Treatment Plan: Discontinue PT Treatment Duration: Nov 04, 2022 Frequency: 1 time per week Estimated Hrs Per Day: .25 hour per day Time Time In: 800 Time Out: 812 DATE: Nov 04, 2022 Total Billed Treatment Time: 12 Total Billed Treatment 1 visit EVMod 12 min HANS BEARD PT Nov 04, 2022 08:42
[2022-11-04] MEDS: meTOprolol TARTRATE (IR) 50 MG TABLET PO SCH (10:04)
--- NOTE | 2022-11-04 10:57 | Progress Note - Hospitalist ---
DANIELA HASSAN 11/04/22 1057: Subjective HPI/CC On Admission Date Seen by Provider: Nov 04, 2022 Time Seen by Provider: 08:20 Patient is a 82-year-old female with past medical history of chronic kidney disease, recurrent UTIs, atrial fibrillation, hypertension, dementia, diabetes who presented to the emergency department due to altered mental status. She is unable to provide me any history and does wake up with significant stimuli but is otherwise quickly back to sleep. All history is obtained from the ER notes, longterm notes, and speaking with her son. Her son states longterm called him this morning and otherwise he was unsure how long she has been sick for. He was worried she had another bladder infection but had recently been started on a daily prophylactic antibiotic for that. Her UA was negative. She did test positive for COVID. She also has an elevated creatinine. Decision was made to admit. Subjective/Events-last exam Patient's mentation is not doing any better today, she keeps her eyes open less today than yesterday, is falling asleep more and is less responsive to questions. Per the RN she also wasn't talking to them this morning, they report she has been having multiple BM. She knows her name, that she is in hospital but is unsure of the year or the city. Objective Exam Vital Signs Vital Signs Date Time Temp Pulse Resp B/P (MAP) Pulse Ox O2 Delivery O2 Flow Rate FiO2 11/04/22 10:49 100 Room Air 0.00 11/04/22 08:00 36.7 74 16 137/65 (89) Capillary Refill : Less Than 3 Seconds General Appearance: No Apparent Distress, Obese, Other (lethargic) Respiratory: Chest Non Tender, No Accessory Muscle Use, No Respiratory Distress Cardiovascular: Regular Rate, Rhythm Gastrointestinal: Non Tender, Soft, Abnormal Bowel Sounds (hyperactive); No Distended, No Guarding Neurologic/Psychiatric: Alert (pt opens eyes), Aphasia, Disoriented (knows name and that she is at hospital, doesnt know where or year) Skin: Normal Color, Warm/Dry Results/Procedures Lab Laboratory Tests 11/04/22 05:35 Patient resulted labs reviewed. Imaging: Reviewed Imaging Report Assessment/Plan Assessment and Plan Assess & Plan/Chief Complaint acute metabolic encephalopathy hepatic encephalopathy COVID 19 Dementia encephalopathy improved from initial elevated ammonia Lactulose via NG Liver US- no definite liver or gallbladder pathology Palliative care consult Spoke to son about potential Hospice A fib Metoprolol Resume Xarelto stop regular INR Anemia Hgb 7.9 Positive fecal occult blood test Venofer [place] on CKD hypernatremia Cr improved 1.38, kidney function improving HTN T2DM Obesity continue home meds as able VANDANA STOVALL MD 11/04/22 2006: Subjective HPI/CC On Admission Time Seen by Provider: 09:00 Assessment/Plan Assessment and Plan Assess & Plan/Chief Complaint After goals of care discussion with son, decision made to transition to hospice. Discharging to [facility] on hospice with [place]. Diagnosis/Problems Diagnosis/Problems (1) Hepatic encephalopathy Status: Acute (2) Cirrhosis Status: Acute (3) Poor prognosis Status: Acute (4) Goals of care, counseling/discussion Status: Acute (5) Morbid obesity Status: Chronic (6) COVID-19 Status: Acute (7) Acute kidney injury superimposed on chronic kidney disease Status: Acute (8) Afib Status: Chronic (9) Anemia Status: Acute Supervisory-Addendum Brief Verification & Attestation Participated in pt care: history, MDM, physical Personally performed: exam, history, MDM, supervision of care Care discussed with: Medical Student Procedures: n/a A medical student performed and documented this service in my presence. I reviewed and verified all information documented by the medical student and made modifications to such information, when appropriate. I personally performed the physical exam and medical decision making. DANIELA HASSAN Nov 04, 2022 10:57 VANDANA STOVALL MD Nov 04, 2022 20:06
[2022-11-04 11:12] VITALS: BP 137/65
--- NOTE | 2022-11-04 20:01 | Discharge Summary ---
Discharge Summary Hospital Course Problems/Dx: (1) Hepatic encephalopathy Status: Acute (2) COVID-19 Status: Acute (3) Afib Status: Chronic (4) On Coumadin for atrial fibrillation Status: Chronic (5) Acute kidney injury superimposed on chronic kidney disease Status: Acute (6) Anemia Status: Acute (7) Obesity Status: Chronic (8) Debility Status: Acute Hospital Course Date of Admission: Oct 29, 2022 at 12:26 Admission Diagnosis : COVID-19 Family Physician/Provider: Tommy Osullivan MD Date of Discharge: 11/04/22 Discharge Diagnosis: COVID-19, acute metabolic encephalopathy, hepatic encephalopathy Hospital Course: Amara Padgett is an 82 year old female who was admitted from [facility] with COVID-19. She had confusion. She was also found to have hyperammonemia with hepatic encephalopathy. She was given Lactulose and her mental status improved slightly. She remained very lethargic and confused. After a goals of care discussion with her son regarding her insignificant improvement and poor prognosis, he elected to discharge back to [facility] on hospice with [place]. Labs and Pending Lab Test: Laboratory Tests 11/03/22 20:21: Glucometer 97 11/04/22 05:35: White Blood Count 10.7, Red Blood Count 2.94L, Hemoglobin 7.9L, Hematocrit 27L, Mean Corpuscular Volume 92, Mean Corpuscular Hemoglobin 27, Mean Corpuscular Hemoglobin Concent 29L, Red Cell Distribution Width 16.7H, Platelet Count 102L, Mean Platelet Volume 11.7, Percent Immature Platelet Fraction 3.4, Sodium Level 137, Potassium Level 3.3L, Chloride Level 109H, Carbon Dioxide Level 19L, Anion Gap 9, Blood Urea Nitrogen 20H, Creatinine 1.38H, Estimat Glomerular Filtration Rate 38, BUN/Creatinine Ratio 14, Glucose Level 125H, Calcium Level 8.0L 11/04/22 05:47: Glucometer 104 11/04/22 10:07: Glucometer 112H Microbiology 10/29/22 Blood Culture - Final, Complete Micrococcus species 10/29/22 Urine Culture - Final, Complete NO GROWTH Home Meds Active Reported Tylenol (Acetaminophen) 325 Mg Tablet 325-650 Mg PO Q6H PRN TAKES 1 TO 2 (325MG) TABS Assessment/Pt Instructions see instructions Discharge Planning: >30 minutes discharge planning Discharge Physical Examination Vital Signs Vital Signs Date Time Temp Pulse Resp B/P (MAP) Pulse Ox O2 Delivery O2 Flow Rate FiO2 11/04/22 13:00 73 11/04/22 11:12 36.0 18 137/65 (89) 100 Room Air 11/04/22 10:49 0.00 Allergies: Coded Allergies: Penicillins (Verified Allergy, Unknown, 05/27/22) Discharge Summary Date of Admission Oct 29, 2022 at 12:26 Date of Discharge Nov 04, 2022 at 14:20 Discharge Date: Nov 04, 2022 Discharge Time: 14:20 Admission Diagnosis AMS Comfort Measures/ End of Life Care: Hospice Care (Home) Discharge Diagnosis Hepatic encephalopathy Cirrhosis [place] on CKD COVID-19 AFib on chronic anticoagulation Anemia Morbid obesity (1) Hepatic encephalopathy Status: Acute (2) COVID-19 Status: Acute (3) Afib Status: Chronic (4) On Coumadin for atrial fibrillation Status: Chronic (5) Acute kidney injury superimposed on chronic kidney disease Status: Acute (6) Anemia Status: Acute (7) Obesity Status: Chronic (8) Debility Status: Acute VANDANA STOVALL MD Nov 04, 2022 20:01
== END 2022-11-04 14:20 | disposition hospice, inpatient (51) | DRG 177 ==
LOC: EDUNIT# 09:39 → ER 09:41 → CSD 12:26
PROVIDERS: ADMIT Family Medicine; ATTEND Internal Medicine
PROC: 8E0ZXY6 Isolation (ICD-10-PCS; principal; 2022-10-29)
DX: U07.1 COVID-19 (principal); G93.41 Metabolic encephalopathy; N17.1 Acute kidney failure with acute cortical necrosis; I13.0 Hypertensive heart and chronic kidney disease with heart failure and stage 1 through stage 4 chronic kidney disease, or unspecified chronic kidney disease; I48.20 Chronic atrial fibrillation, unspecified; E87.0 Hyperosmolality and hypernatremia; Z68.41 Body mass index [BMI] 40.0-44.9, adult; I50.9 Heart failure, unspecified; Z90.5 Acquired absence of kidney; Z96.653 Presence of artificial knee joint, bilateral; F03.90 Unspecified dementia, unspecified severity, without behavioral disturbance, psychotic disturbance, mood disturbance, and anxiety; E78.00 Pure hypercholesterolemia, unspecified; K21.9 Gastro-esophageal reflux disease without esophagitis; M19.90 Unspecified osteoarthritis, unspecified site; E66.9 Obesity, unspecified; Z20.822 Contact with and (suspected) exposure to COVID-19; N18.9 Chronic kidney disease, unspecified; K76.82 Hepatic encephalopathy; D63.1 Anemia in chronic kidney disease; E11.22 Type 2 diabetes mellitus with diabetic chronic kidney disease; Z66 Do not resuscitate; Z51.5 Encounter for palliative care; Z79.01 Long term (current) use of anticoagulants
CPT/HCPCS: 36415; 51702; 70450; 71045; 76705; 80048; 80053; 81000; 82140; 82274; 82607; 82728; 82746; 82805; 82947; 83540; 83550; 83605; 83880; 84484; 85025; 85027; 85610; 85730; 86141; 87040; 87088; 87636; 93005; 93041; 94664; 94760